=== PATIENT | female | born 1960 | race Caucasian/White ===

== ENCOUNTER 2024-03-13 02:52 | Emergency (ER) | payer MEDICARE, SELFPAY ==
--- OUTSIDE RECORDS SUMMARY | 2024-03-20 02:28 | XMS_ITS | Referral Summary ---
Author Organization [facility] [employer] Address [address] [place] [address] Care Team Providers Care Flask Pusher Name Role Phone Amor Contreras MD Primary Care Provider [phone] Source Comments [facility] [employer],non-owned Affiliates and Associated Physician Practices is amultiple site organization consisting of ambulatory clinics and hospital sitesin [place], [place], [place] and [place]. This disclosure is being madepursuant to the Care Everywhere program and may not contain all information available regarding this patient. Last updated 17.[facility] [employer] Allergies Active Allergy Reactions Criticality Noted Date Comments Chloraprep One Step Rash,Skin Reactions Medium 020 Rash with CHG @2% Jah wipes Penicillins Unknown Low 05/17/2015 Pt unable to recall Sulfa Drugs Unknown Low 06/29/2012 Pt unable to recalll Medications * Be aware that medications may not be up to date on this document. Alwaysverify current medications with the patient. Medication Sig Dispensed Refills Start Date End Date Status cetirizine (ZYRTEC ALLERGY) 10 MG tablet Take 10 mg by mouth as needed Active calcium citrate (CITRACAL 950) 950 MG tablet Take 950 mg by mouth once daily Active multivitamin daily tablet Take 1 tablet by mouth daily with food Active fluticasone propionate (FLONASE) 50 MCG/ACT nasal spray Graham 2 sprays into each nostril once daily 16 g 11 02/22/2020 Active Active Problems Problem Noted Date Diagnosed Date Deviated nasal septum 12/21/2019 Nasal polyps 12/21/2019 Nasal turbinate hypertrophy 12/21/2019 Chronic pansinusitis 12/21/2019 SVT (supraventricular tachycardia) 05/17/2015 Osteopenia 01/14/2015 Immunizations Name Administration Dates Next Due Eric Murry primary monoval ent 12+ yr 0.3mL Purple cap 04/11/2020,03/21/2020 INFLUENZA 01/05/2020 Social History Tobacco Use Types Packs/Day Years Used Date Smoking Tobacco: Never Smokeless Tobacco: Never Sex and Gender Information Value Date Recorded Sex Assigned at Female 05/21/2021 12:05 PM [employer] Gender Identity Female 05/21/2021 12:05 PM [employer] Sexual Orientation Straight 05/21/2021 12 :05 PM [employer] Last Filed Vital Signs Vital Sign Reading Time Taken Comments Blood Pressure 105/68 06/27/2020 8:18 AM CDT Pulse 65 06/27/2020 8:18 AM CDT Temperature 36.8 ??C (98.2 ??F) 06/27/2020 8:18 AM CD T Respiratory Rate 13 02/14/2020 2:18 PM [employer] Oxygen Saturation 97% 02/14/2020 2:18 PM [employer] Inhaled Oxygen Concentration - - Weight 61.2 kg (135 lb) 06/27/2020 8:18 AM CDT Height 160 cm (5' 3 ) 06/27/2020 8:18 AM CDT Body Mass Index 23.91 06/27/2020 8:18 AM CDT Plan of Treatment Not on file Procedures Procedure Name Priority Date/Time Associated Diagnosis Comments LIPID PROFILE Routine 05/18/2015 5:11 AM [employer] from Last 3 Months or Most Recently Relevant to Health Maintenance Results * (ABNORMAL) LIPID PROFILE (05/18/2015 5:11 AM [employer]) Cholesterol Total 165 <200 mg/dL [facility] HDL 38(L) >40 mg/dL [facility] Comment: ATP III Classification of HDL Cholesterol: ? <40 mg/dL: ??Considered a major risk factor. ? >60 mg/dL: ??Considered a negative risk factor. ? LDL Calculated 109(H) <100 mg/dL [facility] Comment: ATP III Classification of LDL Cholesterol: ?<100 mg/dL: ??Optimal ? 100 - 129 mg/dL: ??Near Optimal/Above Optimal ? 130 - 159 mg/dL: ??Borderline High ? 160 - 189 mg/dL: ??High ?>190 mg/dL: ??Very High ? Triglycerides 91 <150 mg/dL [facility] Comment: ATP III Classification of Triglycerides: ?<150 mg/dL: ??Normal ? 150 - 199 mg/dL: ??Borderline High ? 200 - 400 mg/dL: ??High ?>500 mg/dL: ??Very High Blood specimen (specimen) BLOOD SPECIMEN / Unknown 05/18/2015 5:11 AM [employer] 05/18/2015 5:20 AM [employer] Liang Lynch MD LAB - CHEMISTRY [facility] Performing Organization Address City/State/[facility] Co de Phone Number [address] [phone] from Last 3 Months or Most Recently Relevant to Health Maintenance Care Teams Flask Pusher Relationship Specialty Start Date End Date Amor Contreras MD PCP - General Internal Medicine 06/29/12
--- OUTSIDE RECORDS SUMMARY | 2024-03-20 02:28 | XMS_ITS | Patient Health Summary ---
Author Organization [facility] [employer] Address [address] [place] [address] Care Team Providers Care Azure Developer Name Role Phone Amor Contreras MD Primary Care Provider [phone] Note from [facility],non-owned Affiliates and Associated Physician Practices is amultiple site organization consisting of ambulatory clinics and hospital sitesin [place], [place], [place] and [place]. This disclosure is being madepursuant to the Care Everywhere program and may not contain all information available regarding this patient. Last updated 17.[facility] Allergies * Chloraprep One Step(Rash,Skin Reactions) -Medium Criticality * Penicillins(Unknown) -Low Criticality * Sulfa Drugs(Unknown) -Low Criticality Medications * Be aware that medications may not be up to date on this document. Alwaysverify current medications with the patient. * cetirizine (ZYRTEC ALLERGY) 10 MG tablet Take 10 mg by mouth as needed * calcium citrate (CITRACAL 950) 950 MG tablet Take 950 mg by mouth once daily * multivitamin daily tablet Take 1 tablet by mouth daily with food * fluticasone propionate (FLONASE) 50 MCG/ACT nasal spray(Started 02/22/2020) Diller 2 sprays into each nostril once daily 11 refills by 02/21/2021 Active Problems Problem Noted Date Diagnosed Date Deviated nasal septum 12/21/2019 Nasal polyps 12/21/2019 Nasal turbinate hypertrophy 12/21/2019 Chronic pansinusitis 12/21/2019 SVT (supraventricular tachycardia) 05/17/2015 Osteopenia 01/14/2015 Immunizations * Covid Pfizer primary monovalent 12+ yr 0.3mL Purple cap(Given 04/11/2020, 03/21/2020) * INFLUENZA(Given 01/05/2020) Social History Tobacco Use Types Packs/Day Years Used Date Smoking Tobacco: Never Smokeless Tobacco: Never Sex and Gender Information Value Date Recorded Sex Assigned at Female 05/21/2021 12:05 PM PRODUCTION CHECKER Gender Identity Female 05/21/2021 12:05 PM PRODUCTION CHECKER Sexual Orientation Straight 05/21/2021 12 :05 PM PRODUCTION CHECKER Last Filed Vital Signs Vital Sign Reading Time Taken Comments Blood Pressure 105/68 06/27/2020 8:18 AM CDT Pulse 65 06/27/2020 8:18 AM CDT Temperature 36.8 ??C (98.2 ??F) 06/27/2020 8:18 AM CD T Respiratory Rate 13 02/14/2020 2:18 PM PRODUCTION CHECKER Oxygen Saturation 97% 02/14/2020 2:18 PM PRODUCTION CHECKER Inhaled Oxygen Concentration - - Weight 61.2 kg (135 lb) 06/27/2020 8:18 AM CDT Height 160 cm (5' 3 ) 06/27/2020 8:18 AM CDT Body Mass Index 23.91 06/27/2020 8:18 AM CDT Procedures * MT NASAL ENDOSCOPY,DX(Performed 06/27/2020) Performed for Nasal polyps, Deviated nasal septum, Nasal turbinate hypertrophy, Chronic pansinusitis * MT NASAL ENDOSCOPY,DX(Performed 04/11/2020) Performed for Nasal polyps, Nasal turbinate hypertrophy, Chronic pansinusitis * MT ENDO NASAL SINUS BX POLYP DEBRID LT SIDE(Performed 03/08/2020) Performed for Chronic pansinusitis, Nasal crusting * CULTURE RESPIRATORY+GRAM STAIN (STL)(Performed 03/08/2020) Performed for Chronic pansinusitis, Nasal crusting * MT ENDO NASAL SINUS BX POLYP DEBRID VALERIA(Performed 02/22/2020) Performed for Chronic pansinusitis, Nasal polyps, Deviated nasal septum, Chronic left-sided headache * CARDIAC EKG ORDER(Performed 02/16/2020) * PATHOLOGY TISSUE(Performed 02/14/2020) Performed for Nasal polyps, Deviated nasal septum, Chronic pansinusitis, Nasal turbinate hypertrophy * ENDOTRACHEAL TUBE NOTE(Performed 02/14/2020) * MT NASAL SCOPE,BX/RMV POLYP/DEBRID(Performed 02/14/2020) Performed for Nasal polyps, Deviated nasal septum, Chronic pansinusitis, Nasal turbinate hypertrophy * SARS-COV-2 (COVID-19) IN HOUSE(Performed 02/12/2020) Performed for Pre-op testing * TYPE + SCREEN PANEL(Performed 02/03/2020) Performed for Preop examination * BASIC METABOLIC PANEL (CALCIUM TOTAL)(Performed 02/03/2020) Performed for Preop examination * CBC W/O DIFFERENTIAL(Performed 02/03/2020) Performed for Preop examination * EKG 12-LEAD(Performed 02/03/2020) Performed for Preop examination * CT SINUS WO CONTRAST(Performed 01/12/2020) Performed for Deviated nasal septum, Mucous retention cyst of maxillary sinus, Nasal polyps * MT NASAL ENDOSCOPY,DX(Performed 12/21/2019) Performed for Chronic left-sided headache, Deviated nasal septum, Mucous retention cyst of maxillary sinus, Nasal polyps * MRI BRAIN WWO CONTRAST(Performed 09/23/2019) Performed for Nonintractable headache, unspecified chronicity pattern, unspecified headache type * CREATININE - POCT INTERFACED(Performed 09/23/2019) * PATHOLOGY/GENETICS HISTORICAL-ONBASE(Performed 01/26/2016) * PATHOLOGY/GENETICS HISTORICAL-ONBASE(Performed 01/26/2016) * PATHOLOGY/GENETICS HISTORICAL-ONBASE(Performed 01/26/2016) * EVENT MONITOR(Performed 11/23/2015) * NM MYOCARD PERF REST STRESS(Performed 05/18/2015) * HEMOGLOBIN A1C(Performed 05/18/2015) * LIPID PROFILE(Performed 05/18/2015) * BASIC METABOLIC PANEL (CALCIUM TOTAL)(Performed 05/18/2015) * PT-INR [facility](Performed 05/18/2015) * XR CHEST 2VW(Performed 05/17/2015) * TROPONIN I(Performed 05/17/2015) * CK + CKMB PANEL(Performed 05/17/2015) * COMPREHENSIVE METABOLIC PANEL(Performed 05/17/2015) * CBC W AUTO DIFFERENTIAL(Performed 05/17/2015) * CBC W AUTO DIFFERENTIAL(Performed 05/17/2015) * ECHO COMPLETE(Performed 05/17/2015) * EKG 12-LEAD(Performed 05/17/2015) * XR KNEE LEFT 4VW OR MORE(Performed 08/05/2012) * XR KNEE LEFT 4VW OR MORE(Performed 07/15/2012) * XR KNEE LEFT 4VW OR MORE(Performed 06/29/2012) Performed for Knee pain Results * MT NASAL ENDOSCOPY,DX (06/27/2020 9:59 AM CDT) Narrative Ernesto Conley MD - 06/27/2020 9:59 AM CDT Ernesto Conley MD ? 06/27/2020 10:00 AM Procedure: Nasal Endoscopy Anesthesia: none Detail: Rigid nasal endoscopy was performed in bilateral nasal cavity. ??Septum is healed appropriately with only some very mild right septal deviation. ??Bilateral middle meatus is open with good healing and excellent appearance of mucosa. ?? Open ethmoid. ?? Maxillary and sphenoid sinuses are widely patent. ??Excellent mucosal appearance. ??Reviewed with patient. Ernesto Conley MD PROCEDURE/MINOR DEEPALI GICAL ORDERABLES * MT NASAL ENDOSCOPY,DX (04/11/2020 8:49 AM PRODUCTION CHECKER) Narrative Ernesto Conley MD - 04/11/2020 8:49 AM PRODUCTION CHECKER Ernesto Conley MD ? 04/11/2020 ??1:12 PM Procedure: Nasal Endoscopy Anesthesia: none Detail: Rigid nasal endoscopy was performed in bilateral nasal cavity. ??Septum is healed appropriately with only some mild right septal deviation. ??Right middle meatus is open with good healing and excellent appearance of mucosa. ??On the left she has had interval healing of the crust and exposed bone. Open ethmoid. ?? Maxillary and sphenoid sinuses are widely patent. ??Excellent mucosal appearance. Ernesto Conley MD PROCEDURE/MINOR DEEPALI GICAL ORDERABLES * MT ENDO NASAL SINUS BX POLYP DEBRID LT SIDE (03/08/2020 2:37 PM PRODUCTION CHECKER) Narrative Ernesto Conley MD - 03/08/2020 2:37 PM PRODUCTION CHECKER Ernesto Conley MD ? 03/08/2020 ??2:38 PM Procedure: Nasal Endoscopy With Debridement on the left Anesthesia: Bilateral Nasal Cavity sprayed with Lidocaine and Phenylephrine Detail: Rigid nasal endoscopy was performed in bilateral nasal cavity. ??Septum is healing appropriately with only some mild right septal deviation. ??Right middle meatus is open with good healing over the exposed Of the lamina papyracea. ??Excellent appearance of mucosa. ??On the left she has a large crust that is on the left lamina propria should. ??We debrided this and noted some exposed bone in the posterior lamina. ??Unable to visualize within the left frontal. ??Maxillary and sphenoid sinuses are widely patent. ??Culture taken. Ernesto Conley MD PROCEDURE/MINOR DEEPALI GICAL ORDERABLES * (ABNORMAL) CULTURE RESPIRATORY+GRAM STAIN (03/08/2020 2:15 PM PRODUCTION CHECKER) Culture Heavy Staphylococcus aureus(A) LUISA 03/12/2020 1:31 PM PRODUCTION CHECKER [facility]CRO[facility] Comment:Staphylococcus aureu s methicillin-susceptible (MSSA) detected by penicillin binding protein immunoassay. Culture Rare Stenotrophomonas maltophilia(A) LUISA 03/12/2020 1:31 PM PRODUCTION CHECKER [facility] MICROBIOLOG[facility] Gram Stain Light Polymorphonuclear cells 03/12/2020 1:31 PM PRODUCTION CHECKER [facility]CRO[facility] Gram Stain Rare Gram-positive cocci 03/12/2020 1:31 PM PRODUCTION CHECKER [facility] MICROBIOLOGY Microbiology SINUS / Unknown Collection / Unknown 03/08/2020 2:15 PM PRODUCTION CHECKER 03/08/2020 6:16 PM PRODUCTION CHECKER Narrative Organism Antibiotic Method Susceptibility Staphylococcus aureus Clindamycin LUISA 0.25 ug/mL: Susceptible Staphylococcus aureus Doxycycline LUISA <=0.5 ug/mL: Susceptible Staphylococcus aureus Erythromycin LUISA <=0.25 ug/mL: Susceptible Staphylococcus aureus Gentamicin LUISA <=0.5 ug/mL: Susceptible Staphylococcus aureus Inducible Clindamy teresa Resistance LUISA NEG ug/mL: Neg Staphylococcus aureus Linezolid LUISA 2 ug/mL: Susceptible Staphylococcus aureus Oxacillin LUISA 0.5 ug/mL: Susceptible Staphylococcus aureus Tetracycline LUISA <=1 ug/mL: Susceptible Staphylococcus aureus Trimethoprim-sulfa methox azole LUISA <=10 ug/mL: Susceptible Staphylococcus aureus Vancomycin LUISA 1 ug/mL: Susceptible Comment:Methicillin-suscepti ble Staphylococci are susceptible to oxacillin, nafcillin, cloxacillin,dicloxacillin, beta lactam/betalactamase inhibitor combinations, cephalosporins including cefazolin and carbapenems. Stenotrophomonas maltophilia Ceftazidime LUISA 64 ug/mL: Resistant Stenotrophomonas maltophilia Levofloxacin LUISA 2 ug/mL: Susceptible Stenotrophomonas maltophilia Minocycline KB Susceptible Stenotrophomonas maltophilia Trimethopri m-sulfamethox azole LUISA 1 ug/mL: Susceptible Ernesto Conley MD LAB - MICROBIOLOGY ORDERABLES [facility]CRO[facility] [address] [place] [address], [facility] [phone] * MT ENDO NASAL SINUS BX POLYP DEBRID VALERIA (02/22/2020 1:17 PM PRODUCTION CHECKER) Narrative Ernesto Conley MD - 02/22/2020 1:17 PM PRODUCTION CHECKER Ernesto Conley MD ? 02/22/2020 ??1:31 PM Procedure: Nasal Endoscopy With Debridement Anesthesia: Bilateral Nasal Cavity sprayed with Lidocaine and Phenylephrine Detail: Rigid nasal endoscopy was performed in bilateral nasal cavity. ??Removed crusting and thick secretions with suctions. ?? Septum is mildly deviated to the right. ??Bilaterally I'm able to suction out the middle meatus using curved and straight suctions. I passed the curved suction into the maxillary sinuses on both sides. ??Good early postoperative appearance. ??Patient reported significant improvement in airway and facial pressure after debridement. Ernesto Conley MD PROCEDURE/MINOR DEEPALI GICAL ORDERABLES * CARDIAC EKG ORDER (02/16/2020 1:02 AM PRODUCTION CHECKER) Narrative 02/16/2020 1:02 AM PRODUCTION CHECKER Ordered by an unspecified provider. Scanned Document CARDIAC SERVICES ORD ERABLES * PATHOLOGY TISSUE (02/14/2020 11:54 AM PRODUCTION CHECKER) Case Report Surgical Pathology Report ? Case: [id number] ? Authorizing Provider: ??Ernesto Conley MD ? Collected: ? 02/14/2020 11:54 AM ? Ordering Location: ? [facility] ?Received: ?02/14/2020 03:02 PM ? Pathologist: ? Triston Adam MD ? Specimen: ?Sinus, Bilateral sinus contents - PERM ? 02/15/2020 4:[address] [facility] Final Diagnosis Bilateral sinus contents, evacuation (A): - Respiratory mucosa with chronic inflammation - 50 eosinophils per high power field 02/15/2020 4:[address] [facility] Microscopic Description and Comment Performed. 02/15/2020 4:[address] [facility] Clinical History The patient is 59 year old female with nasal polyps and nasal turbinate hypertrophy who underwent total ethmoidectomy, maxillary antrostomy, sphenoidectomy and septoplasty. 02/15/2020 4:[address] [facility] Gross Description The requisition and specimen is identified with the patient's name, Colette Lopez. Received in formalin in, specimen A are [id number] cartilage and soft tissue fragments measuring 2.8 x 2.5 x 1.0 cm in aggregate. The specimen is entirely submitted in cassette [id number]. IY 02/15/2020 4:[address] [facility] Disclaimer The performance characteristics of all immunohistochemical and indirect immunofluorescence stains (if any) cited in this report were determined by the Histopathology Laboratory of [facility]. Some of these tests were developed by our own laboratory and have not been cleared or approved by the US Food and Drug Administration. The FDA does not require this test to go through premarket FDA review. These tests are used for clinical purposes. They should not be regarded as investigational or for research. This laboratory is certified under the Clinical Laboratory Improvement Amendments (CLIA) as qualified to perform high complexity clinical laboratory testing. This case has been personally reviewed and interpreted by the attending (teaching) pathologist. 02/15/2020 4:21 PM PRODUCTION CHECKER [facility] Embedded Images 02/15/2020 4:[address] [facility] Biopsy, Excision SINUS / Unknown 02/14/20 20 11:54 AM PRODUCTION CHECKER 02/14/2020 3:02 PM PRODUCTION CHECKER Comment:Pre-op diagnosis: NASAL POLYPS; DEVIATED NASAL SEPTUM; CHRONIC PANSINUSITIS; TURBINATE HYPERTROPHY Ernesto Conley MD LAB - PATHOLOGY/CYT OLOGY ORDERABLES Performing Organization Address City/State/[facility] de Phone Number [facility] [address] [phone] * ETT LINE PERFORMABLE (02/14/2020 11:42 AM PRODUCTION CHECKER) Narrative Tia Dela Cruz APRN-CRNA - 02/14/2020 11:42 AM PRODUCTION CHECKER Tia Dela Cruz APRN-CRNA ? 02/14/2020 11:43 AM Endotracheal Tube Placement: ? Patient Location: OR. Intubation Event Date/Time: ??02/14/2020 11:26 AM Procedure: intubation ([id number]). Procedure Section: ?? Sedation: under general anesthesia. Indications for Airway Management: ??anesthesia Procedure pretreatments used? ??No Induction: standard IV Patient Position: ??sniffing Mask Ventilation: easy. Blade Type: Nieves Blade Size: 2 Laryngoscopy View: grade 1 (full cords) Tube: endotracheal tube Placement: oral Tube type: cuff - inflated Tube Size (MM): 7 Depth of Insertion (CM): 20 Measured From: teeth Cuff Inflated With: air Number of Attempts: 1. Placement Verified By: direct visualization and CO2 monitor CXR Findings: ETT in proper place. Tube secured with: ??adhesive tape. Dentition unchanged? ??Yes Difficult Airway? ??No. Procedure Start Time: 02/14/2020 11:26 AM. Staff Section ?? Anesthesia Provider: Tia Dela Cruz, BUTTONHOLE MAKER HAND-SURGICAL PHYSICIAN ASSISTANT, Performed the procedure Tristin Grijalva DO GENERAL ANESTHESIA ORDERABLES * SARS-COV-2 (COVID-19) PRE-SURGICAL/PROCEDURE (02/12/2020 9:49 AM PRODUCTION CHECKER) COVID-19 PCR Not detected Not detected 02/12/2020 7:[address] [facility] Microbiology SPECIMEN FROM NASOPHARYNGEAL STRUCTURE / Unknown Collection / Unknown 02/12/2020 9:49 AM PRODUCTION CHECKER 02/12/2020 9:49 [address] [facility] - 02/12/2020 7:42 PM PRODUCTION CHECKER This nucleic acid amplification assay performance was validated by [facility]. This test has been authorized by the Food and Drug administration (FDA)under an Emergency??Use Authorization (EUA). This test has been validated in accordance with the FDA's guidance document Policy for Diagnostic Testing in Laboratories Certified to perform High Complexity Testing under CLIA prior to Emergency Use Authorization for Coronavirus Disease-2019 during the Public Health Emergency issued on May 15, 2019. FDA independent review of this validation is pending. This test is only authorized for the duration of time the declaration that circumstances exist justifying the authorization of emergency use of in vitro diagnostic tests for detection of SARS-CoV-2 virus and/or diagnosis of COVID-19 infection under section 564(b)(1) of the Act, 21 U.S.C 360bbb-3 (b)(1), unless the authorization is terminated or revoked sooner. Fact Sheets for this EUA assay are available upon request. Ernesto Conley MD LAB - MICROBIOLOGY ORDERABLES [facility] [address] [place] [address], [facility] [phone] * TYPE + SCREEN PANEL (02/03/2020 9:20 AM PRODUCTION CHECKER) Antibody Screen NEG 0 10:48 AM PRODUCTION CHECKER [facility] ABO Rh A POS 02/03/2020 10:48 AM PRODUCTION CHECKER [facility] Blood Bank BLOOD SPECIMEN / Unknown Lab Venipuncture / Unknown 02/03/2020 9:20 AM PRODUCTION CHECKER 02/03/2020 9:38 AM PRODUCTION CHECKER Magdaleno Martinez DO LAB - BLOOD BANK ORDERABLES [facility] [address] [place] [address], [facility] [phone] * (ABNORMAL) CBC W/O DIFFERENTIAL (02/03/2020 9:20 AM PRODUCTION CHECKER) WBC 6.1 3.5 - 10.5 10? 3 /uL 02/03/2020 9:48 AM [facility] RBC 5.13(H) 3.90 - 5.00 10? 6 /uL 02/03/2020 9:48 AM [facility] Hemoglobin 13.8 12.0 - 15.5 g/dL 02/03/2020 9:48 AM [facility] Hematocrit 44.8 35.0 - 45.0 % 02/03/2020 9:48 AM [facility] MCV 87.3 81.0 - 97.0 fL 02/03/2020 9:48 AM [facility] MCH 26.9(L) 28.0 - 34.0 pg 02/03/2020 9:48 AM [facility] MCHC 30.8(L) 32.0 - 36.0 g/dL 02/03/2020 9:48 AM [facility] Platelet Count 277 150 - 400 10? 3 /uL 02/03/2020 9:48 AM [facility] RDW-SD 41.1 36.0 - 50.0 fL 02/03/2020 9:48 AM [facility] RDW-CV 12.8 11.2 - 14.8 % 02/03/2020 9:48 AM [facility] MPV 10.2 9.3 - 12.8 fL 02/03/2020 9:48 AM [facility] nRBC Absolute 0.00 0 10? 3 /uL 02/03/2020 9:48 AM [facility] nRBC Auto 0.0 0 /100 WBC 02/03/2020 9:48 AM [facility] Blood BLOOD SPECIMEN / Unknown Lab Venipuncture / Unknown 02/03/2020 9:20 AM PRODUCTION CHECKER 02/03/2020 9:38 AM PRODUCTION CHECKER Magdaleno Martinez DO LAB - HEMATOLOGY ORDERABLES [facility] [address] [place] [address], [facility] [phone] * BASIC METABOLIC PANEL (CALCIUM TOTAL) (02/03/2020 9:20 AM PRODUCTION CHECKER) Only the most recent of2 resultswithin the time period is included. BUN 11 7 - 26 mg/dL 02/03/2020 10:02 AM [facility] Creatinine 0.7 0.6 - 1.2 mg/dL 02/03/2020 10:02 AM [facility] Sodium 140 136 - 145 mmol/L 02/03/2020 10:02 AM [facility] Potassium 4.4 3.5 - 4.5 mmol/L 02/03/2020 10:02 AM [facility] Chloride 104 98 - 107 mmol/L 02/03/2020 10:02 AM [facility] CO2 26 22 - 29 mmol/L 02/03/2020 10:02 AM [facility] Glucose 87 70 - 115 mg/dL 02/03/2020 10:02 AM [facility] Calcium 9.0 8.4 - 10.2 mg/dL 02/03/2020 10:02 AM [facility] Anion Gap 14 8 - 18 02/03/2020 10:02 AM [facility] BUN/Creatinine Ratio 16 7 - 23 02/03/2020 10:02 AM [facility] Osmolality Calculated 289 270 - 300 mOsm/kg 02/03/2020 10:02 AM [facility] eGFR >60 >60 mL/min/1.7 3 m2 02/03/2020 10:02 AM [facility] Blood BLOOD SPECIMEN / Unknown Lab Venipuncture / Unknown 02/03/2020 9:20 AM PRODUCTION CHECKER 02/03/2020 9:38 AM PRODUCTION CHECKER Magdaleno Martinez DO LAB - CHEMISTRY O RDERABLES Performing Organization Address [facility] Co de Phone Number [facility] [address] [place] [address], [facility] [phone] * EKG 12-LEAD (02/03/2020 8:51 AM PRODUCTION CHECKER) Only the most recent of2 resultswithin the time period is included. Ventricular Rate 64 BPM [facility] MUSE Atrial Rate 64 BPM [facility] MUSE P-R Interval 130 ms [facility] MUSE QRS Duration ms 82 ms H MUSE Q-T Interval ms 404 ms [facility] MUSE QTC Calculation (Bezet) 416 ms [facility] MUSE Calculated P [place] 64 degrees [facility] MUSE Calculated R [place] 64 degrees [facility] MUSE Calculated T [place] 50 degrees SL MUSE Interpretation EKG NORMAL SINUS RHYTHM NORMAL ECG WHEN COMPARED WITH ECG OF 17-MAY-2015 07:42, PREMATURE ATRIAL COMPLEXES ARE NO LONGER PRESENT Confirmed by fellow Umang Cordoba ([id number]) on 02/14/2020 12:56:57 PM Confirmed by Kvng Ayon ([id number]) on 02/14/2020 11:16:07 PM [facility] MUSE 02/03/2020 8:51 AM PRODUCTION CHECKER 02/14/2020 11:16 PM PRODUCTION CHECKER Magdaleno Martinez DO ECG ORDERABLES Performing Organization Address [facility] Co de Phone Number [facility] * CT SINUS WO CONTRAST (01/12/2020 1:16 PM CDT) Anatomical Region Laterality Modality Head Computed Tomogra phy 01/12/2020 2:31 PM CDT Impressions 01/12/2020 2:42 PM CDT IMPRESSION: 1. Paranasal sinus disease as outlined. This report was electronically signed by THERESA FUNES ??on 01/12/2020 2:42 PM . Narrative 01/12/2020 2:[address] SINUS WO CONTRAST DATE: 01/12/2020 1:17 PM EXAMINATION: Computed tomography (CT) of the maxillofacial bones, orbits, and paranasal sinuses without contrast HISTORY: J34.2: Deviated nasal septum. J34.1: Mucous retention cyst of maxillary sinus. J33.9: Nasal polyps TECHNIQUE: CT of the maxillofacial bones, orbits, and paranasal sinuses was performed without contrast according to standard protocol. COMPARISON: No prior study is available for comparison at the time of this dictation. Correlation with the MRI of the brain from 09/23/2019. FINDINGS: Post-Surgical Findings: ?? None Sinus Chambers: ?? There is moderate polypoid mucosal thickening in the maxillary and sphenoid sinuses with retained secretions. Are scattered opacification in the ethmoid air cells. There is mild mucosal thickening in the frontal sinuses, likely with a small mucus retention cyst along the superior aspect of the left frontal sinus. Nasal Cavities: ?? Mild mucosal thickening around the nasal turbinates. The visualized nasal cavities are otherwise patent. Developmental Anomalies: ??The nasal septum is slightly deviated to the right. Ostiomeatal Complex: ?? Its are obscured bilaterally due to mucosal thickening. Other: ??The orbits appear normal. There are degenerative changes of the temporomandibular joints. The hard palate, mandible, and temporomandibular joints appear otherwise grossly unremarkable. Artifacts from the dental amalgam limits evaluation of the oral cavity. No acute facial bone fractures are identified. The mastoid air cells are grossly clear. No soft tissue abnormality is identified. Procedure Note Theresa Funes MD - 01/12/2020 CT SINUS WO CONTRAST DATE: 01/12/2020 1:17 PM EXAMINATION: Computed tomography (CT) of the maxillofacial bones,orbits, and paranasal sinuses without contrast HISTORY: J34.2: Deviated nasal septum. J34.1: Mucous retention cyst of maxillary sinus. J33.9: Nasal polyps TECHNIQUE: CT of the maxillofacial bones, orbits, and paranasal sinuses was performed without contrast according to standard protocol. COMPARISON: No prior study is available for comparison at the time ofthis dictation. Correlation with the MRI of the brain from 09/23/2019. FINDINGS: Post-Surgical Findings: None Sinus Chambers: There is moderate polypoid mucosal thickening in the maxillary and sphenoid sinuses with retained secretions. Are scattered opacification in the ethmoid air cells. There is mild mucosal thickening in the frontal sinuses, likely with a small mucus retention cyst alongthe superior aspect of the left frontal sinus. Nasal Cavities: Mild mucosal thickening around the nasal turbinates.The visualized nasal cavities are otherwise patent. Developmental Anomalies: The nasal septum is slightly deviated to the right. Ostiomeatal Complex: Its are obscured bilaterally due to mucosal thickening. Other: The orbits appear normal. There are degenerative changes of the temporomandibular joints. The hard palate, mandible, andtemporomandibular joints appear otherwise grossly unremarkable. Artifacts from the dental amalgam limits evaluation of the oral cavity. No acute facial bone fractures are identified. The mastoid air cells are grossly clear. Nosoft tissue abnormality is identified. IMPRESSION: 1. Paranasal sinus disease as outlined. This report was electronically signed by THERESA FUNES on 01/12/2020 2:42 PM . Ernesto Conley MD CT ORDERABLES * MT NASAL ENDOSCOPY,DX (12/21/2019 9:50 AM CDT) Narrative Ernesto Conley MD - 12/21/2019 9:50 AM CDT Ernesto Conley MD ? 12/21/2019 ??9:51 AM Procedure: Rigid Nasal Endoscopy Anesthesia: Bilateral Nasal Cavities sprayed with lidocaine and Neosynephrine Detail: ??Rigid nasal endoscopy performed bilaterally. ??Septum Is severely deviated to the right with greater than 95% obstruction. It is primarily anteriorly and cartilaginous. ??There is contact onto the right inferior turbinate and possibly a scar band. ?? Unable to adequately visualize the right middle turbinate due to the septal deviation. ??On the left nasal cavity is more open but she does have significant inferior turbinate hypertrophy. ??The middle turbinate on the left has polypoid changes with what appears to be polyps coming from the uncinate. ??There is significant edema. ??No chiara purulence. ??Reviewed extensively with patient. Ernesto Conley MD PROCEDURE/MINOR DEEPALI GICAL ORDERABLES * MRI BRAIN WWO CONTRAST (09/23/2019 4:34 PM CDT) Anatomical Region Laterality Modality Head Magnetic Resonan ce 09/24/2019 10:5 3 AM CDT Impressions 09/24/2019 6:37 PM CDT IMPRESSION: 1. No evidence of acute intracranial findings. 2. Significant paranasal sinus disease as outlined. Dictated by Geno Gamble M.D. (president erg[employer]). This report was approved ??by Geno Gamble ?? on 09/24/2019 6:37 PM . I, Dr. THERESA FUNES have personally reviewed and interpreted this examination/study. This report was electronically signed by THERESA FUNES ??on 09/24/2019 6:37 PM . Narrative 09/24/2019 6:37 PM CDT MRI BRAIN WWO CONTRAST DATE: 09/23/2019 5:08 PM EXAMINATION: Magnetic resonance imaging (MRI) of the brain without and with contrast HISTORY: R51: Nonintractable headache, unspecified chronicity pattern, unspecified headache type COMPARISON: No prior study is available for comparison at the time of this dictation. TECHNIQUE: MRI of the brain was performed prior to and following the uneventful administration of 6 mL intravenous gadolinium contrast according to a tumor protocol. FINDINGS: No evidence of acute or chronic hemorrhage is identified. No evidence of acute cerebral infarction is seen. The ventricles are of normal size, shape, and morphology. No masses, mass effect, or midline shift is seen. No enhancing lesions are identified. The corpus callosum and sella appear normal. The posterior fossa, brainstem, and craniocervical junction appear normal. There is significant paranasal sinus disease in the ethmoid sinuses. Moderate mucosal thickening is seen in the left maxillary and the right side of the sphenoid sinus. Mild mucosal thickening in the remaining paranasal sinuses. The mastoid air cells are grossly clear. Mild tortuosity of the optic nerve sheath complexes. The orbits appear otherwise grossly unremarkable. Normal flow voids are demonstrated in the carotid arteries and basilar artery. The calvarium and visualized cervical spine appear normal. Procedure Note Theresa Funes MD - 09/24/2019 MRI BRAIN WWO CONTRAST DATE: 09/23/2019 5:08 PM EXAMINATION: Magnetic resonance imaging (MRI) of the brain without and with contrast HISTORY: R51: Nonintractable headache, unspecified chronicity pattern, unspecified headache type COMPARISON: No prior study is available for comparison at the time ofthis dictation. TECHNIQUE: MRI of the brain was performed prior to and following the uneventful administration of 6 mL intravenous gadolinium contrast according to a tumor protocol. FINDINGS: No evidence of acute or chronic hemorrhage is identified. No evidence of acute cerebral infarction is seen. The ventricles are of normal size, shape, and morphology. No masses, mass effect, or midline shift is seen. No enhancing lesions are identified. The corpus callosum and sellaappear normal. The posterior fossa, brainstem, and craniocervical junctionappear normal. There is significant paranasal sinus disease in the ethmoid sinuses. Moderate mucosal thickening is seen in the left maxillary and the right side of the sphenoid sinus. Mild mucosal thickening in the remaining paranasal sinuses. The mastoid air cells are grossly clear. Mild tortuosity of the optic nerve sheath complexes. The orbits appear otherwise grossly unremarkable. Normal flow voids are demonstrated inthe carotid arteries and basilar artery. The calvarium and visualizedcervical spine appear normal. IMPRESSION: 1. No evidence of acute intracranial findings. 2. Significant paranasal sinus disease as outlined. Dictated by Geno Gamble M.D. (president [employer]). This report was approved by Geno Gamble on 09/24/2019 6:37 PM . I, Dr. THERESA FUNES have personally reviewed and interpreted this examination/study. This report was electronically signed by THERESA FUNES on09/24/2019 6:37 PM . Amor Contreras MD MR ORDERABLES * CREATININE - POCT INTERFACED (09/23/2019 4:04 PM CDT) Creatinine POCT 0.54 0.30 - 1.30 mg/dL 09/23/2019 4:04 PM CDT [facility] Comment:Range ok for MRI eGFR >60 >60 mL/min/1.7 3 m2 09/23/2019 4:04 PM CDT [facility] Blood BLOOD SPECIMEN / Unknown 09/23/2019 4:04 PM CDT 09/23/2019 4:04 PM CDT Provider Unknown LAB - POINT OF CARE ORDERABLES [address] [id number], [facility] [phone] * PATHOLOGY/GENETICS HISTORICAL-ONBASE (01/26/2016) Only the most recent of3 resultswithin the time period is included. 01/26/2016 Historical Provider LAB - CHEMISTRY O RDERABLES Performing Organization Address [facility] Co de Phone Number [place] [phone] [address] * EVENT MONITOR (11/23/2015 8:34 AM CDT) Narrative [facility] - 11/23/2015 8:34 AM CDT Colette Lopez underwent cardiac monitoring with a 30-day event monitor. ??Results are as follows: Quality of Tracings: ??Fair, with some baseline artifact. Rhythm: ??Sinus rhythm, sinus arrhythmia, occasional PACs Rates: ??60-94 bpm on transmitted portions. Ectopy: ??Occasional PACs Symptoms: ??Symptoms of shortness of breath and other correlated with sinus rhythm, sinus arrhythmia and PACs. ??One episode shows an atrial run of 4 beats. ?? Please feel free to contact me with any questions, thank you. Kadie Brown MD 11/23/2015 8:31 AM Procedure Note Provider, MD Katie - 08/22/2017 Colette Lopez underwent cardiac monitoring with a 30-day event monitor.Results are as follows: Quality of Tracings: Fair, with some baseline artifact. Rhythm: Sinus rhythm, sinus arrhythmia, occasional PACs Rates: 60-94 bpm on transmitted portions. Ectopy: Occasional PACs Symptoms: Symptoms of shortness of breath and other correlated withsinus rhythm, sinus arrhythmia and PACs. One episode shows an atrial runof 4 beats. Please feel free to contact me with any questions, thank you. Kadie Brown MD 11/23/2015 8:31 AM Kadie Brown MD CARDIAC SERVICES ORDERABLES Performing Organization Address [facility] Co de Phone Number [facility] * NM MYOCARD PERF REST STRESS (05/18/2015 3:11 PM PRODUCTION CHECKER) Anatomical Region Laterality Modality Chest Other Impressions 05/18/2015 4:49 PM PRODUCTION CHECKER Impression: 1. No evidence of myocardial infarction or stress-induced ischemia. 2. Normal left ventricular function with ejection fraction of 67 %. This report was approved ??by Goldy Ramos M.D. ?? on 05/18/2015 3:54 PM . I, Dr. SARAH LIEBERMAN M.D. have personally reviewed and interpreted this examination/study. This report was electronically signed by SARAH LIEBERMAN M.D. ??on 05/18/2015 4:49 PM . Narrative 05/18/2015 4:49 PM PRODUCTION CHECKER Procedure: Rest and stress SPECT myocardial imaging with gating - one day protocol History: 54-year-old female with history of SVT diagnosed 15 years ago. Presented with shortness of breath. Technique: 10.5 mCi of Myoview was administered at rest. Myocardial perfusion imaging was performed 30 minutes post- injection. At the conclusion of the rest imaging, the patient exercised on the treadmill for 11:02 minutes following a Landen protocol. The heart rate at rest was 72 at baseline and 150 beats per minute at peak exercise, achieving 90% of age-predicted maximum. The BP was 115/75 at rest and 120/80 after the stress procedure. The patient experienced no chest pain and there were no ST segment changes during the exercise. At peak exercise, the patient was injected with 32.3 mCi of Myoview and post-stress gated SPECT was performed after 30 minutes. Findings: ??No prior study is available for comparison. In the stress and rest SPECT images, the left ventricle is normal in size. The stress SPECT images show a a normal pattern of myocardial perfusion. There is no significant change in the perfusion pattern at rest. Gated SPECT images show normal wall motion. Left ventricular function is normal, with an ejection fraction of 67 %. Procedure Note Sarah Lieberman MD - 06/14/2017 Procedure: Rest and stress SPECT myocardial imaging with gating - one dayprotocol History: 54-year-old female with history of SVT diagnosed 15 years ago.Presented with shortness of breath. Technique: 10.5 mCi of Myoview was administered at rest. Myocardialperfusion imaging was performed 30 minutes post- injection. At theconclusion of the rest imaging, the patient exercised on the treadmill for11:02 minutes following a Landen protocol. The heart rate at rest was 72 at baseline and 150 beats per minute at peakexercise, achieving 90% of age-predicted maximum. The BP was 115/75 atrest and 120/80 after the stress procedure. The patient experienced nochest pain and there were no ST segment changes during the exercise. At peak exercise, the patient wasinjected with 32.3 mCi of Myoview and post-stress gated SPECT wasperformed after 30 minutes. Findings: No prior study is available for comparison. In the stress and rest SPECT images, the left ventricle is normal in size.The stress SPECT images show a a normal pattern of myocardial perfusion.There is no significant change in the perfusion pattern at rest. GatedSPECT images show normal wall motion. Left ventricular function is normal, with an ejection fraction of67 %. IMPRESSION Impression: 1. No evidence of myocardial infarction or stress-induced ischemia. 2. Normal left ventricular function with ejection fraction of 67 %. This report was approved by Goldy Ramos M.D. on 05/18/2015 3:54 PM. I, Dr. SARAH LIEBERMAN M.D. have personally reviewed and interpreted thisexamination/study. This report was electronically signed by SARAH LIEBERMAN M.D. on 05/18/20154:49 PM . Liang Lynch MD NM ORDERABLES * PT-INR [facility] (05/18/2015 5:11 AM PRODUCTION CHECKER) PT 12.7 12.1 - 14.8 Seconds [facility] INR 1.0 See Comment [facility] Comment: Suggested therapeutic range for low-intensity coumadin therapy for venous thromboembolism prophylaxis is an INR of 2.0-3.0. ??For high risk patients (Mitral Valve Prosthesis, Atrial Fibrillation, history of TIA/stroke), suggested prophylactic therapeutic range is an INR of 2.5-3.5. Blood specimen (specimen) BLOOD SPECIMEN / Unknown 05/18/2015 5:11 AM PRODUCTION CHECKER 05/18/2015 5:20 AM PRODUCTION CHECKER Narrative [facility] - 05/18/2015 5:42 AM PRODUCTION CHECKER Is patient on Heparin, Argatroban or Dabigatran?->N Liang Lynch MD LAB - COAGULATION OR DERABLES [facility] [address] [phone] * HEMOGLOBIN A1C (05/18/2015 5:11 AM PRODUCTION CHECKER) Hemoglobin A1c 5.8 4.4 - 6.3 % [facility] Estimated Average Glucose 120 mg/dL [facility] Comment: HbA1c Interpretation: Treatment target values recommended by ADA and other clinical organizations should be used to evaluate metabolic control in patients. Treatment Target Values: Normal : < 5.7% Pre-diabetes: 5.7-6.4% Diabetes: Equal to or greater than 6.5% Reference: [place] [employer] Standards of Care in Diabetes -2014 In patients 70 years and older consider HbA1c target range of 7.0-7.5% Reference: ??Diabetes Mellitus in Older People: Position Statement on behalf of the International Association of Gerontology and Geriatrics (IAGG), the Diabetes Working Constitution Party for Older People (EDWPOP), and the International Task Force of Experts in Diabetes. ??Sagar Cristina, et al. J [place] [employer]. 2012 Test results diagnostic of diabetes should be repeated for confirmation. The Tosoh G8 assay for the measurement of HbA1c is a National Glycohemoglobin Standardization Program (NGSP)certified method. Results for patients with HbE disease should be interpreted with caution as this hemoglobinopathy has been shown to interfere with the Tosoh G8 assay. Blood specimen (specimen) BLOOD SPECIMEN / Unknown 05/18/2015 5:11 AM PRODUCTION CHECKER 05/18/2015 5:20 AM PRODUCTION CHECKER Liang Lynch MD LAB - CHEMISTRY [facility] [address] [phone] * (ABNORMAL) LIPID PROFILE (05/18/2015 5:11 AM PRODUCTION CHECKER) Cholesterol Total 165 <200 mg/dL [facility] HDL 38(L) >40 mg/dL [facility] Comment: ATP III Classification of HDL Cholesterol: ? <40 mg/dL: ??Considered a major risk factor. ? >60 mg/dL: ??Considered a negative risk factor. ? LDL Calculated 109(H) <100 mg/dL [facility] Comment: ATP III Classification of LDL Cholesterol: ?<100 mg/dL: ??Optimal ? 100 - 129 mg/dL: ??Near Optimal/Above Optimal ? 130 - 159 mg/dL: ??Borderline High ? 160 - 189 mg/dL: ??High ?>190 mg/dL: ??Very High ? Triglycerides 91 <150 mg/dL [facility] Comment: ATP III Classification of Triglycerides: ?<150 mg/dL: ??Normal ? 150 - 199 mg/dL: ??Borderline High ? 200 - 400 mg/dL: ??High ?>500 mg/dL: ??Very High Blood specimen (specimen) BLOOD SPECIMEN / Unknown 05/18/2015 5:11 AM PRODUCTION CHECKER 05/18/2015 5:20 AM PRODUCTION CHECKER Liang Lynch MD LAB - CHEMISTRY [facility] Organization Address City/State/[facility] [place] [address], [facility] [phone] * XR CHEST 2VW (05/17/2015 8:32 AM PRODUCTION CHECKER) Anatomical Region Laterality Modality Chest Other Impressions 05/17/2015 10:36 AM PRODUCTION CHECKER IMPRESSION: No acute pulmonary process. Dictated by Jame Walters MD (president ergonomic consulting). I, Dr. EWA JOYA M.D. have personally reviewed and interpreted this examination/study. This report was electronically signed by EWA JOYA M.D. ??on 05/17/2015 10:36 AM . Narrative 05/17/2015 10:36 AM PRODUCTION CHECKER EXAMINATION: XR CHEST PA AND LATERAL DATE: 05/17/2015 8:32 AM HISTORY: Chest Pain COMPARISON: No prior study is available for comparison. FINDINGS: There is no focal consolidation, pleural effusion, or pneumothorax. The cardiomediastinal silhouette is normal. The visible bony thorax is intact. Procedure Note wEa Joya MD - 06/14/2017 EXAMINATION: XR CHEST PA AND LATERAL DATE: 05/17/2015 8:32 AM HISTORY: Chest Pain COMPARISON: No prior study is available for comparison. FINDINGS: There is no focal consolidation, pleural effusion, or pneumothorax. Thecardiomediastinal silhouette is normal. The visible bony thorax isintact. IMPRESSION IMPRESSION: No acute pulmonary process. Dictated by Jame Walters MD (president ergonomic consulting). I, Dr. EWA JOYA M.D. have personally reviewed and interpreted thisexamination/study. This report was electronically signed by EWA JOYA M.D. on 05/17/201510:36 AM . Aaron Bro MD DIAGNOSTIC IMAGING O RDERABLES * TROPONIN I (05/17/2015 8:06 AM PRODUCTION CHECKER) Troponin I <0.010 <0.032 ng/mL [facility] Blood specimen (specimen) BLOOD SPECIMEN / Unknown 05/17/2015 8:06 AM PRODUCTION CHECKER 05/17/2015 8:11 AM PRODUCTION CHECKER Aaron Bro MD LAB - CHEMISTRY [facility] Organization Address City/State/[facility] Co de Phone Number [address] [phone] * (ABNORMAL) CBC W AUTO DIFFERENTIAL (05/17/2015 8:06 AM PRODUCTION CHECKER) Only the most recent of2 resultswithin the time period is included. WBC 6.4 3.5 - 10.5 10? 3 /uL [facility] RBC 4.95 3.90 - 5.00 10? 6 /uL [facility] Hemoglobin 13.9 12.0 - 15.5 g/dL [facility] Hematocrit 42.6 35.0 - 45.0 % [facility] MCV 86.1 81.0 - 97.0 fL [facility] MCH 28.1 28.0 - 34.0 pg [facility] MCHC 32.6 32.0 - 36.0 g/dL [facility] Platelet Count 182 150 - 400 10? 3 /uL [facility] RDW-SD 41.2 36.0 - 50.0 fL [facility] RDW-CV 13.0 11.2 - 14.8 % [facility] MPV 11.3 9.3 - 12.8 fL [facility] nRBC Absolute 0.00 0 10? 3 /uL [facility] nRBC Auto 0.0 0 /100 WBC [facility] Neutrophils % 46.5 35.0 - 70.0 % [facility] Lymphocytes % 41.8 19.7 - 55.1 % [facility] Monocytes % 7.5 3.0 - 15.0 % [facility] Eosinophils % 3.9 0.0 - 6.0 % [facility] Basophil % 0.3 0.0 - 1.5 % [facility] Neutrophils Absolute 3.0 1.6 - 7.0 10? 3 /uL [facility] Lymphocyte Absolute 2.7 0.8 - 2.9 10? 3 /uL [facility] Monocytes Absolute 0.48 0.14 - 0.66 10? 3 /uL [facility] Eosinophils Absolute 0.25(H) 0.00 - 0.22 10? 3 /uL [facility] Basophils Absolute 0.02 0.00 - 0.06 10? 3 /uL [facility] Immature Granulocytes % 0.2 0.0 - 1.0 % [facility] Blood specimen (specimen) BLOOD SPECIMEN / Unknown 05/17/2015 8:06 AM PRODUCTION CHECKER 05/17/2015 8:11 AM PRODUCTION CHECKER Aaron Bro MD LAB - HEMATOLOGY ORD ERABLES [facility] [address] [phone] * COMPREHENSIVE METABOLIC PANEL (05/17/2015 8:06 AM PRODUCTION CHECKER) BUN 12 7 - 26 mg/dL [facility] Creatinine 0.7 0.6 - 1.2 mg/dL [facility] Sodium 141 136 - 145 mmol/L [facility] Potassium 3.5 3.5 - 4.5 mmol/L [facility] Chloride 106 98 - 107 mmol/L [facility] CO2 26 22 - 29 mmol/L [facility] Glucose 86 70 - 115 mg/dL [facility] Calcium 9.6 8.4 - 10.2 mg/dL [facility] Protein Total 7.3 6.0 - 8.3 g/dL [facility] Albumin 3.9 3.4 - 5.0 g/dL [facility] Bilirubin Total 0.2 0.2 - 1.2 mg/dL [facility] Alkaline Phosphatase 90 40 - 150 Units/L [facility] ALT 32 0 - 55 Units/L [facility] AST 24 5 - 34 Units/L [facility] Anion Gap 13 8 - 18 [facility] BUN/Creatinine Ratio 17 7 - 23 [facility] Osmolality Calculated 276 270 - 300 mOsm/kg [facility] Albumin/Globulin Ratio 1.1 1.1 - 2.3 [facility] eGFR >60 >60 mL/min/1.7 3 m2 [facility] Blood specimen (specimen) BLOOD SPECIMEN / Unknown 05/17/2015 8:06 AM PRODUCTION CHECKER 05/17/2015 8:11 AM PRODUCTION CHECKER Aaron Bro MD LAB - CHEMISTRY [facility] Performing Organization Address City/State/[facility] Co de Phone Number [address] [phone] * CK + CKMB PANEL (05/17/2015 8:06 AM PRODUCTION CHECKER) CK Total 166 30 - 200 Units/L [facility] CK-MB 1.7 0.0 - 6.6 ng/mL [facility] Blood specimen (specimen) BLOOD SPECIMEN / Unknown 05/17/2015 8:06 AM PRODUCTION CHECKER 05/17/2015 8:11 AM PRODUCTION CHECKER Aaron Bro MD LAB - CHEMISTRY [facility] [place] [id number] [address] [phone] * ECHO W DOPPLER AND COLOR FLOW (05/17/2015 12:00 AM PRODUCTION CHECKER) Anatomical Region Laterality Modality Other 05/17/2015 Liang Lynch MD ECHOCARDIOGRAPHY RAD IANT * XR KNEE LEFT 4VW OR MORE (08/05/2012 9:47 AM CDT) Only the most recent of3 resultswithin the time period is included. Anatomical Region Laterality Modality Lower Extremity Other Impressions 08/05/2012 11:06 AM CDT IMPRESSION: Lateral tibial plateau fracture with articular depression, unchanged alignment. This report was dictated by Karthik Acevedo MD (president ergonomic consulting). Dr. TERRY Ansari M.D. have personally reviewed and interpreted this examination/study. This report was electronically signed by TERRY BELTRAN M.D. ??on 08/05/2012 11:06 AM . Narrative 08/05/2012 11:06 AM CDT EXAM: LEFT KNEE, 4 VIEWS DATE: 08/05/2012 HISTORY: Fracture COMPARISON: 07/15/2012 FINDINGS: There is a fracture of the lateral tibial plateau with articular depression which appears unchanged in alignment and demonstrates slightly increased sclerosis compared to the prior exam. The small volume joint effusion has resolved. No focal soft tissue swelling is seen. Procedure Note Terry Beltran MD - 06/15/2017 EXAM: LEFT KNEE, 4 VIEWS DATE: 08/05/2012 HISTORY: Fracture COMPARISON: 07/15/2012 FINDINGS: There is a fracture of the lateral tibial plateau with articulardepression which appears unchanged in alignment and demonstrates slightlyincreased sclerosis compared to the prior exam. The small volume jointeffusion has resolved. No focal soft tissue swelling is seen. IMPRESSION IMPRESSION: Lateral tibial plateau fracture with articular depression, unchangedalignment. This report was dictated by Karthik Acevedo MD (president ergonomic consulting). Dr. TERRY Ansari M.D. have personally reviewed and interpreted thisexamination/study. This report was electronically signed by TERRY BELTRAN M.D. on 08/05/201211:06 AM . Feliberto Sandoval MD DIAGNOSTIC IMAGING O [facility] Care Teams [employer] Developer Relationship Specialty Start Date End Date Amor Contreras MD PCP - General Internal Medicine 06/29/12
--- OUTSIDE RECORDS SUMMARY | 2024-03-20 02:28 | XMS_ITS | Clinical Summary ---
Author Organization [facility] [employer] Address [address] [place] [address] Care Team Providers Care Bank Advisor Name Role Phone Amor Contreras MD Primary Care Provider [phone] [facility] [employer],non-owned Affiliates and Associated Physician Practices is amultiple site organization consisting of ambulatory clinics and hospital sitesin [place], [place], [place] and [place]. This disclosure is being madepursuant to the Care Everywhere program and may not contain all information available regarding this patient. Last updated 17.[facility] [employer] Allergies Active Allergy Reactions Criticality Noted Date [...] fluticasone propionate (FLONASE) 50 MCG/ACT nasal spray [place] 2 sprays into each nostril once daily 16 g 11 02/22/2020 Active Active Problems Problem Noted Date Diagnosed Date Deviated nasal septum 12/21/2019 Nasal polyps 12/21/2019 Nasal turbinate hypertrophy 12/21/2019 Chronic pansinusitis 12/21/2019 SVT (supraventricular tachycardia) 05/17/2015 Osteopenia 01/14/2015 Immunizations Name Administration Dates Next Due Covid Pfizer primary monoval ent 12+ yr 0.3mL Purple cap 04/11/2020,03/21/2020 INFLUENZA 01/05/2020 Family History Medical History Relation Name Comments Allergic Rhinitis Brother 1 Allergic Rhinitis Brother 2 Allergic Rhinitis Father Other Mother GDB Relation Name Status Comments Brother 1 Brother 2 Father Mother Social History Tobacco Use Types Packs/Day Years Used Date Smoking Tobacco: Never Smokeless Tobacco: Never Sex and Gender Information Value Date Recorded Sex Assigned at Female 05/21/2021 12:05 PM MANAGER ACTION Gender Identity Female 05/21/2021 12:05 PM MANAGER ACTION Sexual Orientation Straight 05/21/2021 12 :05 PM MANAGER ACTION Last Filed Vital Signs Vital Sign Reading Time Taken Comments Blood Pressure 105/68 06/27/2020 8:18 AM CDT Pulse 65 06/27/2020 8:18 AM CDT Temperature 36.8 ??C (98.2 ??F) 06/27/2020 8:18 AM CD T Respiratory Rate 13 02/14/2020 2:18 PM MANAGER ACTION Oxygen Saturation 97% 02/14/2020 2:18 PM MANAGER ACTION Inhaled Oxygen Concentration - - Weight 61.2 kg (135 lb) 06/27/2020 8:18 AM CDT Height 160 cm (5' 3 ) 06/27/2020 8:18 AM CDT Body Mass Index 23.91 06/27/2020 8:18 AM CDT Plan of Treatment Health Maintenance Due Date Last Done Comments BONE DENSITY TESTING 1960 COLOGUARD (AGES 45-75) - COL ON CA SCREENING 1958 COLON MONITORING 1958 COLONOSCOPY - COLON CA SCREENING 1958 CT COLONOGRAPHY - COLON CA SCREENING 1960 Colorectal Cancer Screening 1958 FIT - COLON CA SCREENING 1958 FLEX SIG - COLON CA SCREENING 1958 MAMMOGRAM 1960 PAP SMEAR 1958 HIV SCREENING 1973 HEPATITIS C SCREENING 07/03/1976 DTAP/TDAP/TD VACCINES (1 - Tdap) 1977 ZOSTER VACCINE (1 of 2) 2008 LIPID TESTING 05/17/2020 05/18/2015 DEPRESSION SCREENING 03/17/2023 PNEUMOCOCCAL VACCINE 65+ (1 of 1 - PCV) 07/09/2023 COVID-19 VACCINE (3 - 2023-2 5 season) 2023 04/11/2020, 03/21/2020 INFLUENZA VACCINE (#1) 2023 01/05/2020 Respiratory Syncytial Virus (RSV) Vaccine Pt: or over 60 yrs (1 - 1-dose 75+ series) 2033 HEPATITIS B VACCINE Aged Out No longe r eligible based on patient's age to complete this topic HIB VACCINE Aged Out No longer eligi ble based on patient's age to complete this topic HPV VACCINE Aged Out No longer eligi ble based on patient's age to complete this topic MENINGOCOCCAL VACCINE Aged Out No jonathan jone eligible based on patient's age to complete this topic Procedures Procedure Name Priority Date/Time Associated Diagnosis Comments LIPID PROFILE Routine 05/18/2015 5:11 AM MANAGER ACTION from Last 3 Months or Most Recently Relevant to Health Maintenance Results * (ABNORMAL) LIPID PROFILE (05/18/2015 5:11 AM MANAGER ACTION) Cholesterol Total 165 <200 mg/dL [facility] HDL 38(L) >40 mg/dL [facility] Comment: ATP III Classification of HDL Cholesterol: ? <40 mg/dL: ??Considered a major risk factor. ? >60 mg/dL: ??Considered a negative risk factor. ? LDL Calculated 109(H) <100 mg/dL [facility] Comment: ATP III Classification of LDL Cholesterol: ?<100 mg/dL: ??Optimal ? 100 - 129 mg/dL: ??Near Optimal/Above Optimal ? 130 - 159 mg/dL: ??Borderline High ? 160 - 189 mg/dL: ??High ?>190 mg/dL: ??Very High ? Triglycerides 91 <150 mg/dL [facility] Comment: ATP III Classification of Triglycerides: ?<150 mg/dL: ??Normal ? 150 - 199 mg/dL: ??Borderline High ? 200 - 400 mg/dL: ??High ?>500 mg/dL: ??Very High Blood specimen (specimen) BLOOD SPECIMEN / Unknown 05/18/2015 5:11 AM MANAGER ACTION 05/18/2015 5:20 AM MANAGER ACTION Liang Lynch MD LAB - CHEMISTRY [place] [facility] [address] [phone] from Last 3 Months or Most Recently Relevant to Health Maintenance Care Teams Bank Advisor Relationship Specialty Start Date End Date Amor Contreras MD PCP - General Internal Medicine 06/29/12
--- OUTSIDE RECORDS SUMMARY | 2024-03-20 02:29 | XMS_ITS | Encounter Summary ---
Author Organization [facility] Address [facility] [place] [address] Care Team Providers Care Men'S Designer Name Role Phone Amor Conrteras MD Primary Care Provider [phone] Encounter Details Date Type Department Care Team (Latest Contact Info) Description 03/08/2020 Travel Social History Tobacco Use Types Packs/Day Years Used Date Smoking Tobacco: Never Smokeless Tobacco: Never Sex and Gender Information Value Date Recorded Sex Assigned at Female 05/21/2021 12:05 PM CERTIFIED WELLNESS PROGRAM MANAGER Gender Identity Female 05/21/2021 12:05 PM CERTIFIED WELLNESS PROGRAM MANAGER Sexual Orientation Straight 05/21/2021 12 :05 PM CERTIFIED WELLNESS PROGRAM MANAGER COVID-19 Exposure Response Date Recorded In the last month, have you been in contact with someone who was confirmed or suspected to have Coronavirus / COVID-19? Unable to assess 03/08/2020 6:14 PM CERTIFIED WELLNESS PROGRAM MANAGER documented as of this encounter Plan of Treatment Not on file documented as of this encounter Visit Diagnoses Not on filedocumented in this encounter Care Teams Men'S Designer Relationship Specialty Start Date End Date Amor Contreras MD PCP - General Internal Medicine 06/29/12 documented as of this encounter
--- OUTSIDE RECORDS SUMMARY | 2024-03-20 02:29 | XMS_ITS | Encounter Summary ---
Author Organization [facility] Address [facility] [place] [address] Care Team Providers Care Performing Arts Road Manager Name Role Phone Amor Contreras MD Primary Care Provider [phone] Encounter Details Date Type Department Care Team (Latest Contact Info) Description 02/03/2020 Travel Social History Tobacco Use Types Packs/Day Years Used Date Smoking Tobacco: Never Smokeless Tobacco: Never Sex and Gender Information Value Date Recorded Sex Assigned at Female 05/21/2021 12:05 PM HOT WORKER Gender Identity Female 05/21/2021 12:05 PM HOT WORKER Sexual Orientation Straight 05/21/2021 12 :05 PM HOT WORKER COVID-19 Exposure Response Date Recorded In the last month, have you been in contact with someone who was confirmed or suspected to have Coronavirus / COVID-19? No / Unsure 02/03/2020 8:07 AM HOT WORKER documented as of this encounter Plan of Treatment Not on file documented as of this encounter Visit Diagnoses Not on filedocumented in this encounter Care Teams Performing Arts Road Manager Relationship Specialty Start Date End Date Amor Contreras MD PCP - General Internal Medicine 06/29/12 documented as of this encounter
--- OUTSIDE RECORDS SUMMARY | 2024-03-20 02:29 | XMS_ITS | Encounter Summary ---
Author Organization [facility] Address [facility] [facility] [place] [address] Care Team Providers Care Set Off Blocker Name Role Phone Amor Contreras MD Primary Care Provider [phone] Encounter Details Date Type Department Care Team (Latest Contact Info) Description 02/03/2020 8:51 AM MANAGER CREDIT - 02/03/2020 11:59 PM MANAGER CREDIT Hospital Encounter [facility] OP DRAW STATION [address] [place] [address] [phone] Magdaleno Martinez DO [address] [facility] [place] [address] Discharge Disposition: Home or Self Care Social History Tobacco Use Types Packs/Day Years Used Date Smoking Tobacco: Never Smokeless Tobacco: Never Sex and Gender Information Value Date Recorded Sex Assigned at Female 05/21/2021 12:05 PM MANAGER CREDIT Gender Identity Female 05/21/2021 12:05 PM MANAGER CREDIT Sexual Orientation Straight 05/21/2021 12 :05 PM MANAGER CREDIT COVID-19 Exposure Response Date Recorded In the last month, have you been in contact with someone who was confirmed or suspected to have Coronavirus / COVID-19? No / Unsure 02/03/2020 8:07 AM MANAGER CREDIT documented as of this encounter Medications at Time of Discharge Medication Sig Dispensed Refills Start Date End Date calcium citrate (CITRACAL 950) 950 MG tablet Take 950 mg by mouth once daily cetirizine (ZYRTEC ALLERGY) 10 MG tablet Take 10 mg by mouth as needed multivitamin daily tablet Take 1 tablet by mouth daily with food cefUROXime (CEFTIN) 500 MG tablet Take 1 tablet by mouth 2 times daily for 7 days 14 tablet 02/14/2020 02/21/2020 diphenhydrAMINE (BENADRYL ALLERGY) 25 MG tablet Take by mouth every 4 hours as needed for Itching 06/27/2020 fluticasone propionate (FLONASE) 50 MCG/ACT nasal spray [place] 2 sprays into each nostril once daily 16 g 3 12/21/2019 02/22/2020 oxyCODONE, immediate release, (ROXICODONE) 5 MG tablet Take 1 tablet by mouth every 6 hours as needed for Pain 12 tablet 02/14/2020 02/22/2020 predniSONE (DELTASONE) 10 MG tablet 40mg po qam for 3 days, 30mg po qam for 4 days, 20mg po qam for 10 days, 10mg po qam for 4 days 48 tablet 02/14/2020 02/22/2020 documented as of this encounter Plan of Treatment Not on file documented as of this encounter Procedures Procedure Name Priority Date/Time Associated Diagnosis Comments TYPE + SCREEN PANEL Routine 02/03/2020 9 :20 AM MANAGER CREDIT Preop examination CBC W/O DIFFERENTIAL Routine 02/03/2020 9:20 AM MANAGER CREDIT Preop examination BASIC METABOLIC PANEL (CALCIUM TOTAL) Routine 02/03/2020 9:20 AM MANAGER CREDIT Preop examination documented in this encounter Results * BASIC METABOLIC PANEL (CALCIUM TOTAL) (02/03/2020 9:20 AM MANAGER CREDIT) BUN 11 7 - 26 mg/dL 02/03/2020 10:02 AM [facility] Creatinine 0.7 0.6 - 1.2 mg/dL 02/03/2020 10:02 AM [facility] Sodium 140 136 - 145 mmol/L 02/03/2020 10:02 AM [facility] Potassium 4.4 3.5 - 4.5 mmol/L 02/03/2020 10:02 AM MANAGER CREDIT [facility] Chloride 104 98 - 107 mmol/L 02/03/2020 10:02 AM [facility] CO2 26 22 - 29 mmol/L 02/03/2020 10:02 AM [facility] Glucose 87 70 - 115 mg/dL 02/03/2020 10:02 AM [facility] Calcium 9.0 8.4 - 10.2 mg/dL 02/03/2020 10:02 AM [facility] Anion Gap 14 8 - 18 02/03/2020 10:02 AM [facility] BUN/Creatinine Ratio 16 7 - 23 02/03/2020 10:02 AM [facility] Osmolality Calculated 289 270 - 300 mOsm/kg 02/03/2020 10:02 AM [facility] eGFR >60 >60 mL/min/1.7 3 m2 02/03/2020 10:02 AM [facility] Blood BLOOD SPECIMEN / Unknown Lab Venipuncture / Unknown 02/03/2020 9:20 AM MANAGER CREDIT 02/03/2020 9:38 AM [facility] Magdaleno Martinez DO LAB - CHEMISTRY O RDERABLES [facility] [address] [place] [address], [facility] [phone] * (ABNORMAL) CBC W/O DIFFERENTIAL (02/03/2020 9:20 AM [facility]) WBC 6.1 3.5 - 10.5 10? 3 /uL 02/03/2020 9:48 AM [facility] RBC 5.13(H) 3.90 - 5.00 10? 6 /uL 02/03/2020 9:48 AM [facility] Hemoglobin 13.8 12.0 - 15.5 g/dL 02/03/2020 9:48 AM [facility] Hematocrit 44.8 35.0 - 45.0 % 02/03/2020 9:48 AM [facility] MCV 87.3 81.0 - 97.0 fL 02/03/2020 9:48 AM [facility] MCH 26.9(L) 28.0 - 34.0 pg 02/03/2020 9:48 AM [facility] MCHC 30.8(L) 32.0 - 36.0 g/dL 02/03/2020 9:48 AM [facility] Platelet Count 277 150 - 400 10? 3 /uL 02/03/2020 9:48 AM [facility] RDW-SD 41.1 36.0 - 50.0 fL 02/03/2020 9:48 AM [facility] RDW-CV 12.8 11.2 - 14.8 % 02/03/2020 9:48 AM [facility] MPV 10.2 9.3 - 12.8 fL 02/03/2020 9:48 AM [facility] nRBC Absolute 0.00 0 10? 3 /uL 02/03/2020 9:48 AM [facility] nRBC Auto 0.0 0 /100 WBC 02/03/2020 9:48 AM [facility] Blood BLOOD SPECIMEN / Unknown Lab Venipuncture / Unknown 02/03/2020 9:20 AM MANAGER CREDIT 02/03/2020 9:38 AM MANAGER CREDIT Magdaleno Martinez DO LAB - HEMATOLOGY ORDERABLES [address] [address], [facility] [phone] * TYPE + SCREEN PANEL (02/03/2020 9:20 AM MANAGER CREDIT) Antibody Screen NEG 0 10:48 AM [facility] ABO Rh A POS 02/03/2020 10:48 AM [facility] Blood Bank BLOOD SPECIMEN / Unknown Lab Venipuncture / Unknown 02/03/2020 9:20 AM MANAGER CREDIT 02/03/2020 9:38 AM MANAGER CREDIT Magdaleno Martinez DO LAB - BLOOD BANK ORDERABLES [facility] [place] [address], [place] [phone] documented in this encounter Visit Diagnoses Diagnosis Preop examination- Primary Preoperative examination, unspecified documented in this encounter Care Teams Set Off Blocker Relationship Specialty Start Date End Date Amor Contreras MD PCP - General Internal Medicine 06/29/12 documented as of this encounter
--- OUTSIDE RECORDS SUMMARY | 2024-03-20 02:29 | XMS_ITS | Encounter Summary ---
Author Organization [facility] Address [address] [place] [address] Care Team Providers Care Feed Inspection Supervisor Name Role Phone Amor Contreras MD Primary Care Provider [phone] Reason for Visit * Auth/Cert Specialty Diagnoses / Procedures Referred By Facundo t Referred To Contact Diagnoses Nasal polyps Deviated nasal septum Chronic pansinusitis Nasal turbinate hypertrophy NASAL POLYPS; DEVIATED NASAL SEPTUM; CHRONIC PANSINUSITIS; TURBINATE HYPERTROPHY Procedures ENDOSCOPIC SINUS WITH NAVIGATION Referral ID Status Reason Start Date Expiration Date Visits Re quested Visits Authorized [id number] 1 1 Encounter Details Date Type Department Care Team (Latest Contact Info) Description 02/14/2020 8:24 AM SINGING TEACHER - 02/14/2020 2:40 PM SINGING TEACHER Hospital Encounter [facility] [address] [place] [id number] Ernesto Conley MD [address] [place] [address] Surgery General Discharge Disposition: Home or Self Care Social History Tobacco Use Types Packs/Day Years Used Date Smoking Tobacco: Never Smokeless Tobacco: Never Sex and Gender Information Value Date Recorded Sex Assigned at Female 05/21/2021 12:05 PM SINGING TEACHER Gender Identity Female 05/21/2021 12:05 PM SINGING TEACHER Sexual Orientation Straight 05/21/2021 12 :05 PM SINGING TEACHER COVID-19 Exposure Response Date Recorded In the last month, have you been in contact with someone who was confirmed or suspected to have Coronavirus / COVID-19? Unable to assess 02/12/2020 9:45 AM SINGING TEACHER documented as of this encounter Last Filed Vital Signs Vital Sign Reading Time Taken Comments Blood Pressure 117/73 02/14/2020 2:18 PM SINGING TEACHER Pulse 62 02/14/2020 2:18 PM SINGING TEACHER Temperature 36.4 ??C (97.6 ??F) 02/14/2020 1:50 PM CS T Respiratory Rate 13 02/14/2020 2:18 PM SINGING TEACHER Oxygen Saturation 97% 02/14/2020 2:18 PM SINGING TEACHER Inhaled Oxygen Concentration - - Weight 64.9 kg (143 lb) 02/14/2020 9:10 AM SINGING TEACHER Height 160 cm (5' 3 ) 02/14/2020 9:10 AM SINGING TEACHER Body Mass Index 25.33 02/14/2020 9:10 AM SINGING TEACHER documented in this encounter Discharge Instructions * Discharge Instructions* Umang Winn MD - 02/14/2020 12:55 PM SINGING TEACHER Otolaryngology Discharge Instructions Disposition: Home Diet: Regular Diet Activity: No lifting greater than 10 pounds for [address] while taking narcotic pain medications. NO nose blowing. Take tylenol and motrin in alternating fashion. Wound care: Begin rinsing your nose 3 times daily tomorrow. Wear gauze under your nose as needed for drainage. Finish medications prescribed to you. Follow up: 1 week Clinic contact information: [phone] Other Instructions: Should you experience any of these symptoms... -Fever over 102 degrees. -Persistent pain, nausea, or vomiting. -Persistent bleeding. -Shortness of breath. -Significant redness or drainage from your incision. -Any other questions or concerns. ...During business hours call: the number listed above. ...On nights or weekends call: [phone], ask for the ENT resident ultrasound applications specialist. General Postsurgical Instructions You may expect to feel dizzy, weak, and drowsy for as long as 24 hours after receiving the medicinethat made you sleep (anesthetic). The following information pertains to your recovery period for the first 24 hours followingsurgery. Do not drive a car, ride a bicycle, participate in physical activities, or take public transportation until you are done taking narcotic pain medicines or as directed by your caregiver. Do not drink alcohol or take tranquilizers. Do not take medicine that has not been prescribed by your caregiver. Do not sign important papers or make important decisions while on narcotic pain medicines. Have a responsible person with you. CARE OF INCISION Change bandages (dressings) as directed. Take showers instead of baths until your caregiver gives you permission to take baths. Check with your caregiver if you have tubes coming from the wound site. Avoid heavy lifting (more than 10 pounds/4.5 kilograms), pushing, or pulling. Avoid activities that may risk injury to your surgical site. Only take [id number] or prescription medicines for pain, discomfort, or fever as directed by your caregiver. Do not take aspirin. It can make you bleed. SEEK MEDICAL CARE IF: You feel sick to your stomach (nauseous). You start to throw up (vomit). You have trouble eating or drinking. You have an oral temperature above 102?? F (38.9?? C). You have constipation that is not helped by adjusting diet or increasing fluid intake. Pain medicines are a common cause of constipation. SEEK IMMEDIATE MEDICAL CARE IF: You have persistent dizziness. You have difficulty breathing. You have an oral temperature above 102?? F (38.9?? C), not controlled by medicine. There is increasing pain or tenderness near or in the surgical site. Document Released: 06/22/2003 Document Re-Released: 05/28/2010 ExitCare?? Patient Information ??2011 [employer]. ING TEACHER documented in this encounter Medications at Time of Discharge [...] fluticasone propionate (FLONASE) 50 MCG/ACT nasal spray Antigo 2 sprays into each nostril once daily [...] 02/14/2020 02/22/2020 documented as of this encounter H&P Notes * Ernesto Conley MD - 02/14/2020 10:34 AM CST Otolaryngology Short Stay Form Patient name: Colette Lopez Date of : 1960 Today's Date: 02/14/2020 HPI: Colette Lopez is a 59 year old female with chronic sinusitis and septal deviation presenting for surgery. There have been no changes to the patient's health since his/her last office visit. REVIEW OF SYMPTOMS: Within normal limits except as above MEDICATIONS: No current facility-administered medications on file prior to encounter. Current Outpatient Medications on File Prior to Encounter Medication Sig Dispense Refill ??? calcium citrate (CITRACAL 950) 950 MG tablet Take 950 mg by mouth once daily ??? cetirizine (ZYRTEC ALLERGY) 10 MG tablet Take 10 mg by mouth as needed ??? diphenhydrAMINE (BENADRYL ALLERGY) 25 MG tablet Take by mouth every 4 hours as needed for Itching ??? fluticasone propionate (FLONASE) 50 MCG/ACT nasal spray Antigo 2 sprays into each nostril once daily 16 g 3 ALLERGIES: Allergies Allergen Reactions ??? Penicillins Unknown Pt unable to recall ??? Sulfa Drugs Unknown Pt unable to recalll ??? Chlorhex Gluc-Isopropyl Alcohol [Chloraprep One Step] Rash and Skin Reactions Rash with CHG @2% Jah wipes IMMUNIZATIONS: UTD DEVELOPMENTAL HISTORY: Age appropriate PREVIOUS SERIOUS ILLNESS/SURGERY: Past Surgical History: Procedure Laterality Date ??? ENT SURGERY 2012 removal of lump from tongue ??? Knee Arthroscopy Left 2010 PREVIOUS CHILDHOOD ILLNESS: Past Medical History: Diagnosis Date ??? Chronic pansinusitis ??? Deviated nasal septum ??? Nasal polyps ??? Snoring PERINENT FAMILY / SOCIAL HISTORY: Family History Problem Relation Name Age of Onset ??? Other Mother GDB ??? Allergic Rhinitis Father ??? Allergic Rhinitis Brother ??? Allergic Rhinitis Brother PHYSICAL EXAM: BP 102/72 Pulse 72 Temp 97.4 ??F (36.3 ??C) (Oral) Resp 14 Ht 1.6 m (5' 3 ) Wt 64.9 kg (143 lb) BMI25.33 kg/m2 GEN: NAD HEAD: NCAT EYES: EOMI EARS: deferred NOSE: patent THROAT: clear NECK: supple HEART: Regular rate and rhythm, normal pulses and capillary refill LUNGS: clear to auscultation, no wheezes, rales, or rhonchi ABDOMEN: Abdomen is soft, no tenderness, masses, or organomegaly EXTREMITIES: no clubbing, cyanosis or edema NEURO: no focal findings or movement disorder note SKIN: wnl ASSESMENT: Colette Lopez is a 59 year old female with chronic sinusitis and septal deviation PLAN: TOTAL ETHMOIDECTOMY; MAXILLARY ANTROSTOMY; SPHENOIDECTOMY; SEPTOPLASTY;TURBINECTOMY; bilateral I have seen and examined the patient with the resident and I agree with the findings and plan of care as documented by the resident. Note above edited by me. Ernesto Conley MD 02/14/2020 10:49 AM ING TEACHER documented in this encounter OR Notes * Operative - Umang Winn MD - 02/14/2020 11:40 AM CST PROCEDURE DATE: 02/14/2020 PREOPERATIVE DIAGNOSIS: Bilateral pansinusitis with polyposis POSTOPERATIVE DIAGNOSIS: Same PROCEDURE PERFORMED: 1. Bilateral functional endoscopic sinus surgery: Bilateral total ethmoidectomies, Bilateral maxillary antrostomies with tissue removal, Bilateral sphenoidotomies with tissue removal 2. Image guidance for extracranial procedure. SURGEON: Ernesto Conley MD POACHER OPERATOR: Umang Winn MD ANESTHESIA: General endotracheal LOCAL ANESTHESIA: 1% lidocaine with 1:100,000 epinephrine and Afrin. ESTIMATED BLOOD LOSS: 50 mL. COMPLICATIONS: None. FINDINGS: 1. Mild polypoid disease 2. Exposure of right orbital fat. No evidence of hematoma at end of case. INDICATIONS FOR PROCEDURE: Colette Lopez is our 59 year old female with a history of pansinusitis,confirmed on CT scan, who presented with multiple nasal symptoms and was tried on maximal medical therapy without relief. The patient was given the risks, benefits, alternatives, and indications for bilateral functional endoscopic sinus surgery, including the risks of damage to the orbits, skull base, bleeding, infection, amongst others, and they wished to proceed. PROCEDURE IN DETAIL: Colette Lopez was greeted in the perioperative area where her history, physical, and consent were reviewed and updated as appropriate. The patient was found to be fit for surgery and was wheeled back to the operating room and placed on the table in the supine position. Next, the patient was sedated and intubated by anesthesia without difficulty. They were prepped and draped instandard sterile fashion. The ENT navigation system [employer] by [employer] was calibrated to an accuracy of within 2-3 millimeters. Using the 0-degree endoscope, the bilateral nasal cavities were inspected. 1% lidocaine with 1:100,000 epinephrine was used for a local infiltrate. Afrin-soaked pledgets were placed on the left side while we began working on the right side. Throughout the case, the image guidance was used to confirm landmarks when necessary. Using the ball probe, through biting instruments, the uncinate process was removed chuy large maxillary antrostomy was performed incorporating the natural os. The microdebrider was usedto trim the mucosal edges. Next, the bulla ethmoidalis was entered using a curette. Using the microdebrider, as well as through biting instruments,an anterior and posterior ethmoidectomy was performed on this side. Next, a large sphenoidotomy was performed using the curette and kerrison rongeurs until the partitions were taken up to the skull base. This was continued anteriorly along the skull base until the ethmoids were removed. The lamina papyrcea was fractured during the case and fat protruded through this. No evidence of hematoma or muscle injury was found. Next, we turned our attention towards the left side. A similar procedure was performed on the left side. Using the ball probe, through biting insruments, the uncinate process was removed and a large maxillary antrostomy was performed incorporating the natural os. The microdebrider was used to trim the mucosal edges. Next, the bulla ethmoidalis was entered using a curette. Using the microdebrider, as well as through biting instruments, an anterior and posterior ethmoidectomy was performed on this side. Next, a large sphenoidotomy was performed using the curette and kerrison rongeurs until the partitions were taken up to the skull base. This was continued anteriorly along the skull base until the ethmoids were removed Throughout the FESS, the polyps and purulence that were encountered were removed, and they were trimmed to within a few millimeters of the bony landmarks. At the end of the case, hemostasis was achieved The patient tolerated the procedure well. Dr. Conley was present throughout. PLAN OF CARE: The patient will be discharged home on po medications as appropriate including pain medications, antibiotics, and steroids. The patient has been given specific post operative instructions including irrigating the sinuses with a formulated saline solution and follow up in the outpatient clinic. Umang Winn MD ING TEACHER documented in this encounter Plan of Treatment Not on file documented as of this encounter Procedures Procedure Name Priority Date/Time Associated Diagnosis Comments CARDIAC EKG ORDER 02/16/2020 1:02 AM SINGING TEACHER PATHOLOGY TISSUE Routine 02/14/2020 11:5 4 AM SINGING TEACHER Nasal polyps Deviated nasal septum Chronic pansinusitis Nasal turbinate hypertrophy WA NASAL SCOPE,BX/RMV POLYP/DEBRID 02/14/2020 11:40 AM SINGING TEACHER Nasal polyps Deviated nasal septum Chronic pansinusitis Nasal turbinate hypertrophy Special Needs Supine, STORZ VIDEO TOWER, Vringo STEALTH, MICRODEBRIDER CONSOLE.DS 02/10 documented in this encounter Results * CARDIAC EKG ORDER (02/16/2020 1:02 AM SINGING TEACHER) Narrative 02/16/2020 1:02 AM SINGING TEACHER Ordered by an unspecified provider. Scanned Document CARDIAC SERVICES ORD ERABLES * PATHOLOGY TISSUE (02/14/2020 11:54 AM SINGING TEACHER) Case Report Surgical Pathology Report ? Case: [id number] ? Authorizing Provider: ??Ernesto Conley MD ? Collected: ? 02/14/2020 11:54 AM ? Ordering Location: ? [facility] ?Received: ?02/14/2020 03:02 PM ? Pathologist: ? Triston Adam MD ? Specimen: ?Sinus, Bilateral sinus contents - PERM ? 02/15/2020 4:21 PM [facility] Final Diagnosis Bilateral sinus contents, evacuation (A): - Respiratory mucosa with chronic inflammation - 50 eosinophils per high power field 02/15/2020 4:21 PM [facility] Microscopic Description and Comment Performed. 02/15/2020 4:21 PM [facility] PATH[facility] Clinical History The patient is 59 year old female with nasal polyps and nasal turbinate hypertrophy who underwent total ethmoidectomy, maxillary antrostomy, sphenoidectomy and septoplasty. 02/15/2020 4:21 PM [facility] PATHOLOG[facility] Gross Description The requisition and specimen is identified with the patient's name, Colette Lopez. Received in formalin in, specimen A are [id number] cartilage and soft tissue fragments measuring 2.8 x 2.5 x 1.0 cm in aggregate. The specimen is entirely submitted in cassette A1-A2. IY 02/15/2020 4:21 PM [facility] PATH[facility]Y LAB Disclaimer The performance characteristics of all immunohistochemical and indirect immunofluorescence stains (if any) cited in this report were determined by the Histopathology Laboratory of [facility]. Some of these tests were developed [...] the attending (teaching) pathologist. 02/15/2020 4:21 PM [facility] PATH[facility] LAB Embedded Images 02/15/2020 4:21 PM [facility] PATH[facility]Y LAB Biopsy, Excision SINUS / Unknown 02/14/20 20 11:54 AM SINGING TEACHER 02/14/2020 3:02 PM SINGING TEACHER Comment:Pre-op diagnosis: NASAL POLYPS; DEVIATED NASAL SEPTUM; CHRONIC PANSINUSITIS; TURBINATE HYPERTROPHY Ernesto Conley MD LAB - PATHOLOGY/CYT OLOGY ORDERABLES Performing Organization Address [facility] de Phone Number [facility] PATH[facility] [address] [phone] documented in this encounter Visit Diagnoses Diagnosis Preop examination Preoperative examination, unspecified Nasal polyps Deviated nasal septum Chronic pansinusitis Other chronic sinusitis Nasal turbinate hypertrophy Hypertrophy of nasal turbinates documented in this encounter Administered Medications Inactive Administered Medications - up to 3 most recent administrations Medication Order MAR Action Action Date Dose Rate Site fentaNYL (PF) (SUBLIMAZE) injection 50 mcg 50 mcg, Intravenous, EVERY 15 MIN PRN, Mild Pain, Starting on Fri02/14/20 at 1305, Until Fri02/14/20 at 1540, Maximum total of 4 doses. If patient reaches max total dose, please consult anesthesiologist prior to further administration of pain meds. Hold pain meds if there are signs of hypoventilation., PACU $ Given 02/14/2020 1:35 PM SINGING TEACHER 50 mcg lactated ringers infusion at 20 mL/hr, Intravenous, PRE-OP CONTINUOUS, Starting on Fri02/14/20 at 0900, Until Fri02/14/20 at 1540, Pre-op $ New Bag/Syringe 02/14/2020 9:15 AM SINGING TEACHER 1,000 mL 20 mL/hr Left Wrist oxyCODONE (immediate release) (ROXICODONE) tablet 5 mg 5 mg, Oral, EVERY 4 HOURS PRN, Moderate Pain, Starting on Fri02/14/20 at 1049, Until Fri02/14/20 at 1540 documented in this encounter Active and Recently Administered Medications Times are shown in SINGING TEACHER. Scheduled Medication Order 02/12/2020 02/13/2020 02/14/2020 albuterol-ipratropium (DUO-NEB) nebulizer solution 3 mL 3 mL, Inhalation, POST-OP MULTIPLE, Starting on Fri02/14/20 at 1305, Until Fri02/14/20 at 1540, For wheezing. Notify anesthesia immediately., PACU naloxone (NARCAN) injection 0.04 mg 0.04 mg, Intravenous, POST-OP MULTIPLE, Starting on Fri02/14/20 at 1305, Until Fri02/14/20 at 1540, Notify physician immediately, and mix 0.4 mg Naloxone in 9 mL Normal Saline for slow IV push. Administer dilute Naloxone solution IV very slowly (1 mL over 30 seconds) while observing the patient response and titrating to effect. If no response, call Rapid Response, continue IV Naloxone at the same rate up to a total of 0.8 mg of diluted Naloxone., PACU Continuous Medication Order 02/12/2020 02/13/2020 02/14/2020 lactated ringers infusion at 20 mL/hr, Intravenous, PRE-OP CONTINUOUS, Starting on Fri02/14/20 at 0900, Until Fri02/14/20 at 1540, Pre-op 0915 ($ New Bag/Syri nge - Provider: Claudette Barker RN) lactated ringers infusion at 125 mL/hr, Intravenous, CONTINUOUS, Starting on Fri02/14/20 at 1315, Until Fri02/14/20 at 1540, PACU 1315 (Due) PRN Medication Order 02/12/2020 02/13/2020 02/14/2020 acetaminophen (TYLENOL) tablet 1,000 mg 1,000 mg, Oral, ONCE PRN, pain, 1 dose, Starting on Fri02/14/20 at 1305, Until Fri02/14/20 at 1540, For pain, if not given in OR if not given in last 6 hours., PACU atropine injection 0.4 mg 0.4 mg, Intravenous, ONCE PRN, Other, bradycardia, 1 dose, Starting on Fri02/14/20 at 1305, Until Fri02/14/20 at 1540, For heart rate less than 40. Notify physician., PACU diphenhydrAMINE (BENADRYL) injection 25 mg 25 mg, Intravenous, ONCE PRN, Nausea/Vomiting, 1 dose, Starting on Fri02/14/20 at 1305, Until Fri02/14/20 at 1540, Second choice, use if first choice was ineffective., PACU fentaNYL (PF) (SUBLIMAZE) injection 100 mcg 100 mcg, Intravenous, EVERY 30 MIN PRN, Moderate Pain, Starting on Fri02/14/20 at 1305, Until Fri02/14/20 at 1540, Maximum total of 4 doses. If patient reaches max total dose, please consult anesthesiologist prior to further administration of pain meds. Hold pain meds if there are signs of hypoventilation., PACU fentaNYL (PF) (SUBLIMAZE) injection 50 mcg 50 mcg, Intravenous, EVERY 15 MIN PRN, Mild Pain, Starting on Fri02/14/20 at 1305, Until Fri02/14/20 at 1540, Maximum total of 4 doses. If patient reaches max total dose, please consult anesthesiologist prior to further administration of pain meds. Hold pain meds if there are signs of hypoventilation., PACU 1335 ($ Given - Prov ider: Andreina Holly RN) HYDROmorphone (DILAUDID) injection 0.5 mg 0.5 mg, Intravenous, EVERY 10 MIN PRN, Severe Pain, 4 doses, Starting on Fri02/14/20 at 1305, Until Fri02/14/20 at 1540, Maximum total of 4 doses If patient reaches max total dose, please consult anesthesiologist prior to further administration of pain meds. Hold pain meds if there are signs of hypoventilation., PACU lidocaine 1% - EPINEPHrine 1:100,000 injection (CANCELED) PRN, Starting on Fri02/14/20 at 1135, Until Fri02/14/20 at 1258, Intra-op 1135 ($ Given - Prov ider: Umang Winn MD) oxyCODONE (immediate release) (ROXICODONE) tablet 5 mg 5 mg, Oral, EVERY 4 HOURS PRN, Moderate Pain, Starting on Fri02/14/20 at 1049, Until Fri02/14/20 at 1540 oxymetazoline (AFRIN) 0.05 % nasal spray (CANCELED) PRN, Starting on Fri02/14/20 at 1130, Until Fri02/14/20 at 1258, Intra-op 1130 ($ Given - Prov ider: Umang Winn MD - Comment: Given to sterile field for soaking pledgets.) prochlorperazine (COMPAZINE) injection 10 mg 10 mg, Intravenous, ONCE PRN, Nausea/Vomiting, 1 dose, Starting on Fri02/14/20 at 1305, Until Fri02/14/20 at 1540, First choice, PACU documented in this encounter Care Teams Feed Inspection Supervisor Relationship Specialty Start Date End Date Amor Contreras MD PCP - General Internal Medicine 06/29/12 documented as of this encounter
--- OUTSIDE RECORDS SUMMARY | 2024-03-20 02:29 | XMS_ITS | Encounter Summary ---
Author Organization [facility] Address [facility] [facility] [address] [place] [address] Care Team Providers Care Automobile Service Station Mechanic Name Role Phone Amor Contreras MD Primary Care Provider [phone] Encounter Details Date Type Department Care Team (Late st Contact Info) Description 09/16/2012 [facility] - Orthopedics [address] [place] [phone] Feliberto Sandoval MD [address] [place] [address] OF ORTHOPEDIC SURGERY [place], [place] [id number] Social History Tobacco Use Types Packs/Day Years Used Date Smoking Tobacco: Never Assessed Sex and Gender Information Value Date Recorded Sex Assigned at Female 05/21/2021 12:05 PM CONSTRUCTION STONEM[employer]ON Gender Identity Female 05/21/2021 12:05 PM CONSTRUCTION STONEM[employer] Sexual Orientation Straight 05/21/2021 12 :05 PM CONSTRUCTION STONEMASON documented as of this encounter Plan of Treatment Not on file documented as of this encounter Visit Diagnoses Not on filedocumented in this encounter Care Teams Automobile Service Station Mechanic Relationship Specialty Start Date End Date Amor Contreras MD PCP - General Internal Medicine 06/29/12 documented as of this encounter
--- OUTSIDE RECORDS SUMMARY | 2024-03-20 02:29 | XMS_ITS | Encounter Summary ---
Author Organization [facility] Address [facility] [place] [address] Care Team Providers Care Digging Machine Operator Name Role Phone Amor Contreras MD Primary Care Provider [phone] Reason for Visit * Reason Comments Sinusitis Encounter Details Date Type Department Care Team (Late st Contact Info) Description 04/11/2020 8:00 AM DOCUMENT DESIGN SPECIALIST Office Visit [facility] OTOLARYNGOLOGY [address], [address] [place] [address] Ernesot Conley MD [facility] [place] [address] Nasal polyps (Primary Dx); Nasal turbinate hypertrophy; Chronic pansinusitis Social History Tobacco Use Types Packs/Day Years Used Date Smoking Tobacco: Never Smokeless Tobacco: Never Sex and Gender Information Value Date Recorded Sex Assigned at Female 05/21/2021 12:05 PM DOCUMENT DESIGN SPECIALIST Gender Identity Female 05/21/2021 12:05 PM DOCUMENT DESIGN SPECIALIST Sexual Orientation Straight 05/21/2021 12 :05 PM DOCUMENT DESIGN SPECIALIST COVID-19 Exposure Response Date Recorded In the last month, have you been in contact with someone who was confirmed or suspected to have Coronavirus / COVID-19? No / Unsure 03/21/2020 7:29 AM DOCUMENT DESIGN SPECIALIST documented as of this encounter Last Filed Vital Signs Vital Sign Reading Time Taken Comments Blood Pressure 105/64 04/11/2020 7:46 AM DOCUMENT DESIGN SPECIALIST Pulse 80 04/11/2020 7:46 AM DOCUMENT DESIGN SPECIALIST Temperature 36.8 ??C (98.2 ??F) 04/11/2020 7:46 AM CS T Respiratory Rate - - Oxygen Saturation - - Inhaled Oxygen Concentration - - Weight 61.2 kg (135 lb) 04/11/2020 7:46 AM DOCUMENT DESIGN SPECIALIST Height 160 cm (5' 3 ) 04/11/2020 7:46 AM DOCUMENT DESIGN SPECIALIST Body Mass Index 23.91 04/11/2020 7:46 AM DOCUMENT DESIGN SPECIALIST documented in this encounter Patient Instructions * Patient Instructions* Namita Philippe - 04/11/2020 7:48 AM DOCUMENT DESIGN SPECIALIST Thank you for visiting [facility] Otolaryngology - Head & Neck Surgery. We appreciate your confidence in allowing us to participate in your health care. You may receive a survey about your visit with us today. Making our patients happy isn???t just happy talk; it???s ourmission. Please tell us if we made the right impression on you- and how we can serve you better. Please SAVE the information below, it will assist you when it???s time for you to contact us. ??? To MAKE - CHANGE - CANCEL an office appointment If you become ill, need to be seen before your next scheduled appointment, or need to cancel or reschedule an appointment, please call our office at [phone] Friday through Friday from 8:30 am to4:30 pm. You can also request a routine appointment through your [employer] account. ??? Prescription Refills Contact your pharmacy to request all refills. The pharmacy will need to fax the request to us at . Please allow a minimum of 48-72 hours for your prescription to be completed. Your pharmacy will notify you when your prescription is ready to be picked up. ??? Medical Emergency / After Hours Contact Information If you have a medical emergency, please call 911 or go to the nearest emergency room. For urgent medical calls, which cannot wait until the office opens, please call the medical exchange at and ask the label press operator to page the ENT physician community organization worker. *Caller ID blocking service will need to be turned off for your call to be returned. We also specialize in Hearing Aids, Allergy testing, swallowing disorders, voice problems, cancer diagnosis, and so much more. Visit our website at [email or web address] for information about our practice and an interactive health encyclopedia. MENT DESIGN SPECIALIST documented in this encounter Progress Notes * Ernesto Conley MD - 04/11/2020 8:00 AM CST History of Present Illness 59 year old with a h/o nasal obstruction. ?? Presented initially after obtaining an MRI and the request of her PCP due to left sided headaches. He wanted her to start Lyrica, but the patient refused. States that she takes Excedrin for her headaches. This controls her headaches overall. At that visit she reported that she has right sided nasalobstruction. Has tried nasal sprays, and takes Zyrtec daily. Underwent allergy testing with Dr. Sawyer. Did not proceed with immunotherapy. Both of her brothers and her father have significant sinonasal issues and has undergone surgery. No previous CT scan of her sinuses. Her nasal obstruction issevere. Only some minimal improvement on medications. Denies sinonasal surgery. Referred to me after the MRI as there was noted to be sinusitis.treated her with medications and obtained a positive posttreatment CT scan. ?? She is now s/p bilateral total ethmoidectomy, maxillary antrostomy with tissue removal, sphenoidotomies with tissue removal on 02/14/2020. She is here today with reports of almost complete resolution of her eye pain. She has been compliant with use of the prescribed topical antibiotic, and still has a few days of this left to use. Notesthat she occasionally experiences mild bleeding after use of nasal saline irrigations. Review of Systems A 12-system review of systems was obtained and negative except for: Nose: sinus pain, post nasal drainage, congestion Past Medical History: Diagnosis Date ??? Chronic pansinusitis ??? Deviated nasal septum ??? Nasal polyps ??? Snoring Past Surgical History: Procedure Laterality Date ??? ENT SURGERY 2011 removal of lump from tongue ??? Knee Arthroscopy Left 2009 ??? SINUS SURGERY Bilateral 02/14/2020 Bilateral; TOTAL ETHMOIDECTOMY; MAXILLARY ANTROSTOMY; SPHENOIDECTOMY; SEPTOPLASTY;TURBINECTOMY Current Outpatient Medications Medication Sig Dispense Refill ??? calcium citrate (CITRACAL 950) 950 MG tablet Take 950 mg by mouth once daily ??? cetirizine (ZYRTEC ALLERGY) 10 MG tablet Take 10 mg by mouth as needed ??? diphenhydrAMINE (BENADRYL ALLERGY) 25 MG tablet Take by mouth every 4 hours as needed for Itching ??? fluticasone propionate (FLONASE) 50 MCG/ACT nasal spray [place] 2 sprays into each nostril once daily 16 g 11 ??? multivitamin daily tablet Take 1 tablet by mouth daily with food No current facility-administered medications for this visit. Allergies Allergen Reactions ??? Penicillins Unknown Pt unable to recall ??? Sulfa Drugs Unknown Pt unable to recalll ??? Chlorhex Gluc-Isopropyl Alcohol [Chloraprep One Step] Rash and Skin Reactions Rash with CHG @2% Jah wipes Social History Tobacco Use ??? Smoking status: Never Smoker ??? Smokeless tobacco: Never Used Substance Use Topics ??? Alcohol use: Not on file Comment: occasional ??? Drug use: No Family History Problem Relation Name Age of Onset ??? Other Mother GDB ??? Allergic Rhinitis Father ??? Allergic Rhinitis Brother ??? Allergic Rhinitis Brother Vitals BP 105/64 Pulse 80 Temp 98.2 ??F (36.8 ??C) Ht 5' 3 (1.6 m) Wt 135 lb (61.2 kg) BMI 23.91 kg/m2 Physical Exam Constitutional: Alert, No acute Distress; Well developed/ Well nourished White/ female appears stated age. Neuro: cranial nerves III-XII grossly intact CV/Pulm: Normal respirations and peripheral pulses. Eyes: PERRL, EOMI Face/Skin: normal appearance, no lesions/masses Nose: Unable to visualize posteriorly so proceded with endoscopy. See note below. Mouth and oropharynx: symmetric tongue mobility Voice: strong MusculoSkeletal: moves all extremities well Procedure: Nasal Endoscopy Anesthesia: none Detail: Rigid nasal endoscopy was performed in bilateral nasal cavity. Septum is healed appropriately with only some mild right septal deviation. Right middle meatus is open with good healing and excellent appearance of mucosa. On the left she has had interval healing of the crust and exposed bone.Open ethmoid. Maxillary and sphenoid sinuses are widely patent. Excellent mucosal appearance. Assessment and Plan Chronic sinusitis: Upon endoscopy, there is noted healing of the previously exposed bone. Overall appearance of the mucosa is ideal. Instructed to complete the prescribed topical antibiotic. Recommend using Vaseline in the nostrils prior to use of nasal saline irrigations or nasal steroids. RTC in 3 months or sooner with any issue. I, Angelique Veliz, acted as scribe for Ernesto Conley MD in documenting the service or procedure. To the best of my knowledge, I recorded what was dictated by Ernesto Conley MD. Provider: IErnesto MD have reviewed the initial documentation provided by Angelique Veliz and affirm that it is an accurate restatement of my dictated record of services. I understand and acknowledge that I am responsible for the accuracy of the documentation. Ernesto Conley MD MENT DESIGN SPECIALIST * Namita Philippe - 04/11/2020 7:47 AM CST Review of Systems Colette Lopez reports the following; Nose: sinus pain, post nasal drainage, congestion MENT DESIGN SPECIALIST documented in this encounter Procedure Notes * Ernesto Conley MD - 04/11/2020 8:49 AM CSTAssociated Order(s): PROC SINUS ENDOSCOPY Procedure(s): CA NASAL ENDOSCOPY,DX Pre-Procedure Diagnose(s): Nasal polyps; Nasal turbinate hypertrophy; Chronic pansinusitis Procedure: Nasal Endoscopy Anesthesia: none Detail: Rigid nasal endoscopy was performed in bilateral nasal cavity. Septum is healed appropriately with only some mild right septal deviation. Right middle meatus is open with good healing and excellent appearance of mucosa. On the left she has had interval healing of the crust and exposed bone.Open ethmoid. Maxillary and sphenoid sinuses are widely patent. Excellent mucosal appearance. MENT DESIGN SPECIALIST documented in this encounter Plan of Treatment Not on file documented as of this encounter Procedures Procedure Name Priority Date/Time Associated Diagnosis Comments CA NASAL ENDOSCOPY,DX Routine 04/11/2020 8:49 AM DOCUMENT DESIGN SPECIALIST Nasal polyps Nasal turbinate hypertrophy Chronic pansinusitis documented in this encounter Results * CA NASAL ENDOSCOPY,DX (04/11/2020 8:49 AM DOCUMENT DESIGN SPECIALIST) Narrative Ernesot Conley MD - 04/11/2020 8:49 AM DOCUMENT DESIGN SPECIALIST Ernesto Conley MD ? 04/11/2020 ??1:12 PM [...] Ernesto Conley MD PROCEDURE/MINOR DEEPALI GICAL ORDERABLES documented in this encounter Visit Diagnoses Diagnosis Nasal polyps- Primary Nasal turbinate hypertrophy Hypertrophy of nasal turbinates Chronic pansinusitis Other chronic sinusitis documented in this encounter Care Teams Digging Machine Operator Relationship Specialty Start Date End Date Amor Contreras MD PCP - General Internal Medicine 06/29/12 documented as of this encounter
--- OUTSIDE RECORDS SUMMARY | 2024-03-20 02:29 | XMS_ITS | Encounter Summary ---
Author Organization [facility] Jack Erwin Address [address] [place] [address] Care Team Providers Care Manager Systems Name Role Phone Amor Contreras MD Primary Care Provider [phone] Reason for Visit * Reason Onset Date Comments Tachycardia 03/04/2020 Encounter Details Date Type Department Care Team (Late st Contact Info) Description 03/04/2020 Telephone [facility] - General Surgery [address] [place], [place] [id number] Cornelio Trejo MD [address] [id number] Tachycardia Social History Tobacco Use Types Packs/Day Years Used Date Smoking Tobacco: Never Smokeless Tobacco: Never Sex and Gender Information Value Date Recorded Sex Assigned at Female 05/21/2021 12:05 PM LOGISTICS MANAGER Gender Identity Female 05/21/2021 12:05 PM LOGISTICS MANAGER Sexual Orientation Straight 05/21/2021 12 :05 PM LOGISTICS MANAGER COVID-19 Exposure Response Date Recorded In the last month, have you been in contact with someone who was confirmed or suspected to have Coronavirus / COVID-19? Unable to assess 02/12/2020 9:45 AM LOGISTICS MANAGER documented as of this encounter Miscellaneous Notes * Telephone Encounter - Cornelio Trejo MD - 03/04/2020 1:14 PM CST Received call from this patient who reports that she has noticed two episodes of tachycardia to 150, each within one hour of taking augmentin. She reports that this was recently prescribed and she isunsure if this is related to the augmentin. The tachycardia has since resolved. Denies any lightheadedness, chest pain, shortness of breath. Offered to change antibiotic to clindamycin and discontinue augmentin. Patient is in agreement. Follow-up as previously scheduled. Dusty Trejo MD Otolaryngology Head & Neck Surgery PGY-2 03/04/2020 STICS MANAGER documented in this encounter Plan of Treatment Not on file documented as of this encounter Visit Diagnoses Not on filedocumented in this encounter Care Teams Manager Systems Relationship Specialty Start Date End Date Amor Contreras MD PCP - General Internal Medicine 06/29/12 documented as of this encounter
--- OUTSIDE RECORDS SUMMARY | 2024-03-20 02:29 | XMS_ITS | Encounter Summary ---
Author Organization [facility] Address [address] [place] [address] Care Team Providers Care Flavorer Name Role Phone Amor Contreras MD Primary Care Provider [phone] Reason for Visit * Auth/Cert Specialty Diagnoses / Procedures Referred By Facundo randle Referred To Contact Diagnoses Nasal polyps Deviated nasal septum Chronic pansinusitis Nasal turbinate hypertrophy NASAL POLYPS; DEVIATED NASAL SEPTUM; CHRONIC PANSINUSITIS; TURBINATE HYPERTROPHY Procedures ENDOSCOPIC SINUS WITH NAVIGATION Referral ID Status Reason Start Date Expiration Date Visits Re quested Visits Authorized [id number] 1 1 Encounter Details Date Type Department Care Team (Late st Contact Info) Description 02/14/2020 11:17 AM TOOL PROGRAMMER Anesthesia Event [facility] [address] [place] [id number] Tristin Grijalva, DO [address] [place] [address] Tia Dela Cruz, LOCAL INTERMODAL TRUCK DRIVER-RICE MILLING SUPERVISOR [address] [place] [address] Anesthesia Record Procedure Summary Procedure Name Responsible Anesthesiologist Anesthesia Start Time Anesthesia Stop Time TOTAL ETHMOIDECTOMY; MAXILLARY ANTROSTOMY; SPHENOIDECTOMY; SEPTOPLASTY;TURBINE CTOMY (Bilateral: Nose) Tristin Grijalva DO 02/14/20 1117 02/14/20 1307 Events Date Time Event Comment 02/14/2020 0910 1117 Pt In Room 1117 An Start 1117 An Start Data 1122 Anes Timeout 1122 PT Reassessment 1122 Induction 1125 An Intubation 1130 Anes Ready 1137 Timeout Anesthesia part icipated in timeout at the time documented in the record by nursing. 1137 Time Out Anesthesia part icipated in timeout at the time documented in the record by nursing 1140 Proc Start 1243 Proc Stop 1243 An Emergence 1253 Extubation 1253 an stop data 1253 Pt out of Room 1253 ANPTO2 1307 An Stop Meds Name Total fentaNYL 100 mcg/2ml injection 100 mcg lidocaine PF 2% 100 mg propofol 200mg/20mL injection 200 mg succinylcholine 20 mg/mL injection 100 m g rocuronium 50 mg/5 mL injection 50 mg phenylephrine 100 mcg/mL injection 200 m cg ondansetron 4mg/2mL injection 4 mg dexamethasone 10 mg/ml PF injection 4 mg hydromorphone 2 mg/10mL prefilled syring e 0.5 mg sugammadex 200 mg/2mL injection 130 mg famotidine 20 mg/2mL injection 20 mg dexmedetomide bolus (no charge) 12 mcg LR (Lactated ringers) 1,200 mL * Agents Name Insp. N2O Exp. Sevoflurane Exp. N2O O2 Air Insp. Sevoflurane * Blood No blood administrations on file. Lines, Drains, and Airways Type Details Placement Removal Peripheral IV Date: 02/14/20; Time : 0910; Orientation: Left; Placed By: NS; Tolerance: Well 02/14/20 0910 by Claudette Barker RN 02/14/20 1430 by Rafael Woodruff RN ETT Date: 02/14/20; Time : 1126; Placed By: Tia Dela Cruz APRN-RICE MILLING SUPERVISOR; Vent: easy mask; Induction: Standard IV; Blade Type: Nieves; Blade Size: 2; Laryngoscopy View: Grade 1 (full cords); Tube: Endotracheal Tube; Placement: Oral; Tube Type: Cuffed-inflated; Tube Size(mm): 7 MM; Depth of Insertion: 20 CM; Measured From: teeth; Attempts: 1; Cuff Infated: Air; Verified By: Direct visualization, CO2 Monitor 02/14/20 1126 by Tia Dela Cruz APRN-LUCIA 02/14/20 1253 by Tia Dela Cruz APRN-RICE MILLING SUPERVISOR Procedural Site (Incision) 02/14/20; 1202; Nose; Bilateral sinuses packed with nexfoam and surgicel, drip pad applied. ; 02/14/20; 203902/14/20 1202 by Luly Parson RN 02/14/202039 by Rasmussen Reports, Auto Release documented in this encounter Social History Tobacco Use Types Packs/Day Years Used Date Smoking Tobacco: Never Smokeless Tobacco: Never Sex and Gender Information Value Date Recorded Sex Assigned at Female 05/21/2021 12:05 PM TOOL PROGRAMMER Gender Identity Female 05/21/2021 12:05 PM TOOL PROGRAMMER Sexual Orientation Straight 05/21/2021 12 :05 PM TOOL PROGRAMMER COVID-19 Exposure Response Date Recorded In the last month, have you been in contact with someone who was confirmed or suspected to have Coronavirus / COVID-19? Unable to assess 02/12/2020 9:45 AM TOOL PROGRAMMER documented as of this encounter Progress Notes * Tristin Grijalva DO - 02/14/2020 1:12 PM CST ANESTHESIA POSTOP EVALUATION NOTE Procedure: TOTAL ETHMOIDECTOMY; MAXILLARY ANTROSTOMY; SPHENOIDECTOMY; SEPTOPLASTY;TURBINECTOMY (Bilateral Nose) Colette Lopez is a 59 year old female Patient Vitals for the past 6 hrs: BP Temp Pulse Resp SpO2 Pain Scale/Observation 02/14/20 0910 102/72 97.4 ??F (36.3 ??C) 72 14 -- No/denies pain 02/14/20 1300 104/58 97 ??F (36.1 ??C) 73 10 100 % No/denies pain 02/14/20 1310 103/57 -- 74 (!) 8 96 % -- Anesthesia Type: general ETT Pre-op Diagnosis Codes: * Nasal polyps [J33.9] * Deviated nasal septum [J34.2] * Chronic pansinusitis [J32.4] * Nasal turbinate hypertrophy [J34.3] Mental Status: awake, alert, oriented, sufficiently recovered from acute administration of anesthesia to participate in the evaluation and neurologic status has returned to preoperative level Neuro Status: No numbness, tingling or visual disturbances Respiratory Function: natural Cardiac Function: stable Postop Pain: acceptable to the patient Postop Hydration: adequate Postop Nausea: none Assessment: no apparent anesthetic complications, patient tolerated procedure well and no evidence of recall Patient Disposition: Release from Anesthesia Care COMPLICATIONS: No complications documented. PROGRAMMER * Tristin Grijalva DO - 02/03/2020 8:12 AM CST ANESTHESIA PREOPERATIVE EVALUATION NOTE Procedure: TOTAL ETHMOIDECTOMY; MAXILLARY ANTROSTOMY; SPHENOIDECTOMY; SEPTOPLASTY;TURBINECTOMY (Bilateral Nose) Vitals: No data found. ANESTHESIA PRE-EVALUATION NOTE History of Present Illness: Colette Lopez is a 59 yo F who presents for pre-op evaluation with rhinosinusitis and nasal obstruction with significant right septal deviation and inferior turbinate hypertrophy. She is thus scheduled for the above-mentioned procedure on 02/14/2020. No pertinent PMHx, patient only takes daily calcium citrate, zyrtec and flonase. 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 EKG today normal sinus rhythm. Stress testin 2015 showed normal EF and no ischemia. Pt notes last time she underwent general anesthesia was 8 years ago for small mass on tongue evaluated by ENT, no anesthesia complications noted. Previous Airway Management: No Hx Available Physical Exam: Orientation X3 Airway/Mallampati Score: II Mouth Opening Distance: 2.5 fingerwidths Neck ROM: full TM Distance: > 3 FB Teeth: normal and caps/crowns Heart: normal - S1 S2 Lungs: clear to ausculation bilaterally Abdomen Exam: soft and normal Review of Systems: History of anesthetic complications: No Malignant Hyperthermia: No GERD: No Poor Exercise Tolerance: No Recent Chest Pain: No Shortness of Breath: No AICD/Pacemaker: No Renal Disease: No Diagnostic Tests: ECG(s) reviewed: Yes (02/03/2020: normal sinus rhythm. Normal ECG.) Stress Test(s) reviewed: Yes. Lab(s) reviewed: Yes (02/03/2020: CBC, BMP normal). Stress Test 05/18/2015: Impression: 1. No evidence of myocardial infarction or stress-induced ischemia. 2. Normal left ventricular function with ejection fraction of 67 %. Event Monitor 11/23/15: Colette Lopez underwent cardiac monitoring with a 30-day event monitor. Results are as follows: Quality of Tracings: Fair, with some baseline artifact. Rhythm: Sinus rhythm, sinus arrhythmia, occasional PACs Rates: 60-94 bpm on transmitted portions. Ectopy: Occasional PACs Symptoms: Symptoms of shortness of breath and other correlated with sinus rhythm, sinus arrhythmia and PACs. One episode shows an atrial run of 4 beats. ?? ANESTHESIA PLAN ASA Score: 2 NPO Status: Patient instructed to be NPO after midnight Anesthesia Plan: general ETT Planned Induction: intravenous Planned Postop Destination: PACU Anesthetic plan was discussed with: patient Anesthetic Plan discussion was: Consented The patient's procedural Anesthetic Plan was discussed with the RICE MILLING SUPERVISOR. BMI, Height, Weight Tobacco History Estimated body mass index is 23.91 kg/m?? as calculated from the following: Height as of 12/21/19: 1.6 m (5' 3 ). Weight as of 12/21/19: 61.2 kg (135 lb). Social History Tobacco Use Smoking Status Never Smoker Smokeless Tobacco Never Used Alcohol History Drug History Social History Substance and Sexual Activity Alcohol Use Not on file Comment: Ocassional Social History Substance and Sexual Activity Drug Use No Outpatient Medications: Inpatient Medications: No outpatient medications have been marked as taking for the 02/03/20 encounter (Hospital Encounter) with [facility] PAT ROOM 1. No current facility-administered medications for this encounter. Allergies: Allergies Allergen Reactions ??? Penicillins Unknown ??? Sulfa Drugs Unknown Relevant Problems No relevant active problems Problem List: Patient Active Problem List Diagnosis Date Noted ??? Deviated nasal septum 12/21/2019 Priority: Not Prioritized ??? Nasal polyps 12/21/2019 Priority: Not Prioritized ??? Hypertrophy of both inferior nasal turbinates 12/21/2019 Priority: Not Prioritized ??? Chronic pansinusitis 12/21/2019 Priority: Not Prioritized ??? SVT (supraventricular tachycardia) 05/17/2015 Priority: Not Prioritized ??? Osteopenia 01/14/2015 Priority: Not Prioritized Medical History: No past medical history on file. Surgical History: No past surgical history on file. Lab Results: Invalid input(s): OSMOLAITY Invalid input(s): PREGTESTUR Invalid input(s): ANIONAPART, PREALBIUMIN, [id number] PAT Evaluation summary: I. Perioperative Cardiac Risk Index Stratification based on 2014 ACC/AHA Guidelines Perioperative risk of a Major Adverse Cardiac Event (MACE). Add one point (0-6) for each positive RCRI (Revised Cardiac Risk Index) Is the surgery high-risk? no Intraperitoneal Intrathoracic Major vascular Neurosurgical spine or craniotomy History of ischemic heart disease? no Recent GA with 60 days = very high risk of MACE, requires cardiac consultation History of GA > 60 days History of positive stress test Current chest pain considered due to myocardial ischemia Use of nitrate therapy ECG with pathologic Q waves History of congestive heart failure? no Pulmonary edema, bilateral rales or S3 gallop Paroxysmal nocturnal dyspnea CXR showing pulmonary vascular congestion History of cerebrovascular disease? no Prior TIA or stroke Insulin-dependent Diabetes? no Preoperative creatinine > 2 mg/dl? no RCRI correlation with MACE (www.mdcalc.com/kdsdobi-fbpmkjf-hnie-xmkci-kub-wqlddnpjt-risk, originally validated by Caleb T. Circulation. 1999;100:9911-0360) 0 Points - 0.4% risk 1 Point - 0.9% risk 2 Points - 6.6% risk 3 or more Points - 11% risk This patient has 0 RCRI and the risk of MACE= 0.4 % If MACE < 1%, no further testing required. Proceed to surgery. Patient is at low risk of MACE. If MACE > 1% Elevated risk. Need to assess the patient's functional capacity. 4 METs = Can walk up a flight of steps or a hill or walk on level ground at 3 mph If > 4 METs. Proceed to surgery. If < 4 METs or unknown functional capacity then discuss with attending, as further workup may beindicated. (Source: 2014 ACC/AHA Guideline on Perioperative Cardiovascular Evaluation and Management of Patients Undergoing Noncardiac Surgery) II. Consults: Cardiology / medicine/ other risk stratification or consults requested: no III. CIEDs (cardiovascular implantable electronic device) Patient does not have any CIEDs IV. Anticoagulants Is patient receiving antiplatelet/ anticoagulant medications. No. Instructions per surgical team. V. Previous transfusions / blood products Previous blood transfusion? no . Most recent EKG (02/03/2020): . EKG: NSR. Normal ECG. VII. Additional testing needed within 1 month prior to DOS (if possible, else on DOS) CBC, BMP, T+S ordered 02/03/2020 Additional testing needed on DOS as below: - T+S Any additional tests ordered by the surgical team: yes - COVID Summary: Colette Lopez is a 59 year old F presenting for TOTAL ETHMOIDECTOMY; MAXILLARY ANTROSTOMY; SPHENOIDECTOMY; SEPTOPLASTY;TURBINECTOMY (Bilateral Nose). They have an ASA score of ASA 2 and 0 RCRI, which correlates with a MACE score of _0.4____%. She is medically optimized for this procedure. Labs/ tests ordered for DOS: (please list here): T+S Preoperative plan was not discussed w/ PAT attending. Plan to discuss with attending anesthesiologist on DOS. Final clearance per attending. PAT evaluation is complete including review of all pending consults, CIEDs, review of labs ordered in PAT. Magdaleno Martinez DO 02/03/2020 PROGRAMMER documented in this encounter Procedure Notes * Lanie, ERIN Castillo - 02/14/2020 11:42 AM CSTAssociated Order(s): ETT Placement Endotracheal Tube Placement: Patient Location: OR. Intubation Event Date/Time: 02/14/2020 11:26 AM Procedure: intubation (11595). Procedure Section: Sedation: under general anesthesia. Indications for Airway Management: anesthesia Procedure pretreatments used? No Induction: standard IV Patient Position: sniffing Mask Ventilation: easy. Blade Type: Nieves Blade Size: 2 Laryngoscopy View: grade 1 (full cords) Tube: endotracheal tube Placement: oral Tube type: cuff - inflated Tube Size (MM): 7 Depth of Insertion (CM): 20 Measured From: teeth Cuff Inflated With: air Number of Attempts: 1. Placement Verified By: direct visualization and CO2 monitor CXR Findings: ETT in proper place. Tube secured with: adhesive tape. Dentition unchanged? Yes Difficult Airway? No. Procedure Start Time: 02/14/2020 11:26 AM. Staff Section Anesthesia Provider: Tia Dela Cruz APRN-CRNA, Performed the procedure PROGRAMMER documented in this encounter Miscellaneous Notes * Anesthesia Transfer of Care - Tia Dela Cruz APRN-CRNA - 02/14/2020 1:06 PM CST ANESTHESIA TRANSFER OF CARE NOTE Today's Date: 02/14/2020 Date of : 1960 Patient: Colette Lopez Procedure(s): TOTAL ETHMOIDECTOMY; MAXILLARY ANTROSTOMY; SPHENOIDECTOMY; SEPTOPLASTY;TURBINECTOMY Surgeon(s): Primary: Ernesto Conley MD Resident - Assisting: Umang Winn MD Preop Diagnosis: Pre-op Diagnois: * Nasal polyps [J33.9] * Deviated nasal septum [J34.2] * Chronic pansinusitis [J32.4] * Nasal turbinate hypertrophy [J34.3] Pre-op Meds (From admission, onward) Start Stop Status Route Frequency Ordered 02/14/20 1305 acetaminophen (TYLENOL) tablet 1,000 mg -- Verified PO ONCE PRN 02/14/20 1305 02/14/20 1305 albuterol-ipratropium (DUO-NEB) nebulizer solution 3 mL -- Sent IN POST-OP MULTIPLE 02/14/20 1305 02/14/20 1305 atropine injection 0.4 mg -- Sent IV ONCE PRN 02/14/20 1305 02/14/20 1138 Dexamethasone Sod Phosphate PF injection -- Sent IV PRN 02/14/20 1138 02/14/20 1305 diphenhydrAMINE (BENADRYL) injection 25 mg -- Sent IV ONCE PRN 02/14/20 1305 02/14/20 1138 famotidine (PEPCID) injection -- Sent PRN 02/14/20 1138 02/14/20 1112 fentaNYL (PF) (SUBLIMAZE) injection -- Sent IV PRN 02/14/20 1138 02/14/20 1305 fentaNYL (PF) (SUBLIMAZE) injection 100 mcg -- Sent IV EVERY 30 MIN PRN 02/14/20 1305 02/14/20 1305 fentaNYL (PF) (SUBLIMAZE) injection 50 mcg -- Verified IV EVERY 15 MIN PRN 02/14/20 1305 02/14/20 1305 HYDROmorphone (DILAUDID) injection 0.5 mg -- Sent IV EVERY 10 MIN PRN 02/14/20 1305 02/14/20 1240 HYDROmorphone HCl-NaCl 2-0.9 MG/10ML-% SOSY -- Sent IV PRN 02/14/20 1241 02/14/20 0900 lactated ringers infusion -- Dispensed IV PRE-OP CONTINUOUS 02/14/20 0859 02/14/20 1112 lactated ringers infusion -- Sent IV CONTINUOUS PRN 02/14/20 1141 02/14/20 1315 lactated ringers infusion -- Dispensed IV CONTINUOUS 02/14/20 1305 02/14/20 1122 lidocaine hcl (PF) (XYLOCAINE MPF) 2 % injection -- Sent INFILTRATION PRN 02/14/20 1138 02/14/20 1305 naloxone (NARCAN) injection 0.04 mg -- Sent IV POST-OP MULTIPLE 02/14/20 1305 02/14/20 1138 Ondansetron HCl (ZOFRAN) injection -- Sent IV PRN 02/14/20 1138 02/14/20 1049 oxyCODONE (immediate release) (ROXICODONE) tablet 5 mg -- Verified PO EVERY 4 HOURS PRN 02/14/20 1049 02/14/20 1138 phenylephrine 100 mcg/mL injection -- Sent IV PRN 02/14/20 1138 02/14/20 1305 prochlorperazine (COMPAZINE) injection 10 mg -- Sent IV ONCE PRN 02/14/20 1305 02/14/20 1122 propofol (DIPRIVAN) injection -- Sent IV PRN 02/14/20 1138 02/14/20 1122 rocuronium (ZEMURON) injection -- Sent IV PRN 02/14/20 1138 02/14/20 1122 succinylcholine (ANECTINE) injection -- Sent IV PRN 02/14/20 1138 02/14/20 1241 sugammadex (BRIDION) injection -- Sent IV PRN 02/14/20 1241 Post-op Diagnosis: * Nasal polyps [J33.9] * Deviated nasal septum [J34.2] * Chronic pansinusitis [J32.4] * Nasal turbinate hypertrophy [J34.3] . Allergies Allergen Reactions ??? Penicillins Unknown Pt unable to recall ??? Sulfa Drugs Unknown Pt unable to recalll ??? Chlorhex Gluc-Isopropyl Alcohol [Chloraprep One Step] Rash and Skin Reactions Rash with CHG @2% Jah wipes Vitals: Patient Vitals for the past 3 hrs: BP Temp Pulse Resp SpO2 02/14/20 1300 104/58 97 ??F (36.1 ??C) 73 10 100 % Lines, Drains, and Airways Type Details Placement Removal Peripheral IV Date: 02/14/20; Time: 0910; Orientation: Left; Location: Wrist; Placed By: NS; Gauge:18 Gauge; Locals: None; Tolerance: Well 02/14/20 0910 by Claudette Barker RN ETT Date: 02/14/20; Time: 1126; Placed By: Tia Dela Cruz APRN-RICE MILLING SUPERVISOR; Vent: easy mask; Induction: Standard IV; Blade Type: Nieves; Blade Size: 2; Laryngoscopy View: Grade 1 (full cords); Tube: Endotracheal Tube; Placement: Oral; Tube Type: Cuffed-inflated; Tube Size(mm): 7 MM; Depth of Insertion: 20 CM; Measured From: teeth; Attempts: 1; Cuff Infated: Air; Verified By: Direct visualization, CO2 Monitor 02/14/20 1126 by Tia Dela Cruz APRN-CRNA 02/14/20 1253 by Tia Dela Cruz APRN-CRNA Intraprocedure I/O Totals None Patient Transfer Location: Other - please comment and PACU Transport Airway: spontaneous respirations and supplemental O2 Transport Monitoring: heart rate and continuous pulse oximetry Complications: None Handoff Given? Yes ERIN Pete PROGRAMMER documented in this encounter Plan of Treatment Not on file documented as of this encounter Procedures Procedure Name Priority Date/Time Associated Diagnosis Comments ENDOTRACHEAL TUBE NOTE Routine 02/14/2020 11:42 AM TOOL PROGRAMMER documented in this encounter Results * ETT LINE PERFORMABLE (02/14/2020 11:42 AM TOOL PROGRAMMER) Narrative Tia Dela Cruz APRN-CRNA - 02/14/2020 11:42 AM TOOL PROGRAMMER Tia Dela Cruz APRN-CRNA ? 02/14/2020 11:43 AM Endotracheal Tube Placement: ? Patient Location: OR. Intubation Event Date/Time: ??02/14/2020 11:26 AM Procedure: intubation (68121). Procedure Section: ?? Sedation: under general anesthesia. [...] Section ?? Anesthesia Provider: Tia Dela Cruz, LUCILLE-RICE MILLING SUPERVISOR, Performed the procedure Tristin Grijalva DO GENERAL ANESTHESIA ORDERABLES documented in this encounter Visit Diagnoses Not on filedocumented in this encounter Administered Medications Inactive Administered Medications - up to 3 most recent administrations Medication Order MAR Action Action Date Dose Rate Site Dexamethasone Sod Phosphate PF injection Intravenous, PRN, Starting on Fri02/14/20 at 1138, Until Fri02/14/20 at 1307, Anesthesia Intra-op $ Given 02/14/2020 11:38 AM TOOL PROGRAMMER 4 mg dexmedetomide bolus PRN, Starting on Fri02/14/20 at 1251, Until Fri02/14/20 at 1307, Anesthesia Intra-op $ Given 02/14/2020 12:51 PM TOOL PROGRAMMER 12 mcg famotidine (PEPCID) injection PRN, Starting on Fri02/14/20 at 1138, Until Fri02/14/20 at 1307, Anesthesia Intra-op $ Given 02/14/2020 11:38 AM TOOL PROGRAMMER 20 mg fentaNYL (PF) (SUBLIMAZE) injection Intravenous, PRN, Starting on Fri02/14/20 at 1112, Until Fri02/14/20 at 1307, Anesthesia Intra-op $ Given 02/14/2020 11:12 AM TOOL PROGRAMMER 100 mcg HYDROmorphone HCl-NaCl 2-0.9 MG/10ML-% SOSY Intravenous, PRN, Starting on Fri02/14/20 at 1240, Until Fri02/14/20 at 1307, Anesthesia Intra-op $ Given 02/14/2020 12:40 PM TOOL PROGRAMMER 0.5 mg lactated ringers infusion Intravenous, CONTINUOUS PRN, Starting on Fri02/14/20 at 1112, Until Fri02/14/20 at 1307, Anesthesia Intra-op $ New Bag/Syringe 02/14/2020 12:44 PM TOOL PROGRAMMER $ New Bag/Syringe 02/14/2020 11:12 AM TOOL PROGRAMMER lidocaine hcl (PF) (XYLOCAINE MPF) 2 % injection Infiltration, PRN, Starting on Fri02/14/20 at 1122, Until Fri02/14/20 at 1307, Anesthesia Intra-op $ Given 02/14/2020 11:22 AM TOOL PROGRAMMER 100 mg Ondansetron HCl (ZOFRAN) injection Intravenous, PRN, Starting on Fri02/14/20 at 1138, Until Fri02/14/20 at 1307, Anesthesia Intra-op $ Given 02/14/2020 11:38 AM TOOL PROGRAMMER 4 mg phenylephrine 100 mcg/mL injection Intravenous, PRN, Starting on Fri02/14/20 at 1138, Until Fri02/14/20 at 1307, Anesthesia Intra-op $ Given 02/14/2020 11:38 AM TOOL PROGRAMMER 200 mcg propofol (DIPRIVAN) injection Intravenous, PRN, Starting on Fri02/14/20 at 1122, Until Fri02/14/20 at 1307, Anesthesia Intra-op $ Given 02/14/2020 11:22 AM TOOL PROGRAMMER 200 mg rocuronium (ZEMURON) injection Intravenous, PRN, Starting on Fri02/14/20 at 1122, Until Fri02/14/20 at 1307, Anesthesia Intra-op $ Given 02/14/2020 11:30 AM TOOL PROGRAMMER 45 mg $ Given 02/14/2020 11:22 AM TOOL PROGRAMMER 5 mg succinylcholine (ANECTINE) injection Intravenous, PRN, Starting on Fri02/14/20 at 1122, Until Fri02/14/20 at 1307, Anesthesia Intra-op $ Given 02/14/2020 11:22 AM TOOL PROGRAMMER 100 mg sugammadex (BRIDION) injection Intravenous, PRN, Starting on Fri02/14/20 at 1241, Until Fri02/14/20 at 1307, Anesthesia Intra-op $ Given 02/14/2020 12:41 PM TOOL PROGRAMMER 130 mg documented in this encounter Care Teams Flavorer Relationship Specialty Start Date End Date Amor Contreras MD PCP - General Internal Medicine 06/29/12 documented as of this encounter
--- OUTSIDE RECORDS SUMMARY | 2024-03-20 02:29 | XMS_ITS | Encounter Summary ---
Author Organization [facility] Address [facility] [facility] [place] [address] Care Team Providers Care Erection Shop Supervisor Name Role Phone Amor Contreras MD Primary Care Provider [phone] Encounter Details Date Type Department Care Team (Late st Contact Info) Description 01/13/2020 Orders Only [facility] [address] [facility] [facility], [address] [place], [place] [id number] Ernesto Waite MD [facility] [place]PT [place] [address] Pre-op testing Social History Tobacco Use Types Packs/Day Years Used Date Smoking Tobacco: Never Smokeless Tobacco: Never Sex and Gender Information Value Date Recorded Sex Assigned at Female 05/21/2021 12:05 PM DENIAL RESOLUTION SPECIALIST Gender Identity Female 05/21/2021 12:05 PM DENIAL RESOLUTION SPECIALIST Sexual Orientation Straight 05/21/2021 12 :05 PM DENIAL RESOLUTION SPECIALIST COVID-19 Exposure Response Date Recorded In the last month, have you been in contact with someone who was confirmed or suspected to have Coronavirus / COVID-19? No / Unsure 01/12/2020 12:09 PM CDT documented as of this encounter Progress Notes * Elizabeth Delacruz LPN - 01/13/2020 11:44 AM CDT Verbal order per dr. waite per [facility] protocol documented in this encounter Plan of Treatment Not on file documented as of this encounter Results * SARS-COV-2 (COVID-19) PRE-SURGICAL/PROCEDURE (02/12/2020 9:49 AM DENIAL RESOLUTION SPECIALIST) COVID-19 PCR Not detected Not detected 02/12/2020 7:42 PM DENIAL RESOLUTION SPECIALIST [facility] MICROBIOLOGY Microbiology SPECIMEN FROM NASOPHARYNGEAL STRUCTURE / Unknown Collection / Unknown 02/12/2020 9:49 AM DENIAL RESOLUTION SPECIALIST 02/12/2020 9:49 AM DENIAL RESOLUTION SPECIALIST Narrative [facility] - 02/12/2020 7:42 PM DENIAL RESOLUTION SPECIALIST This nucleic acid amplification assay performance was validated by [facility]. This test has [...] EUA assay are available upon request. Ernesto Waite MD LAB - MICROBIOLOGY ORDERABLES [facility]CRO[facility]OLOG[facility] [address] [place] [address], [facility] [phone] documented in this encounter Visit Diagnoses Diagnosis Pre-op testing- Primary Preoperative examination, unspecified documented in this encounter Care Teams Erection Shop Supervisor Relationship Specialty Start Date End Date Amor Contreras MD PCP - General Internal Medicine 06/29/12 documented as of this encounter
--- OUTSIDE RECORDS SUMMARY | 2024-03-20 02:29 | XMS_ITS | Encounter Summary ---
Author Organization [facility] Address [address] [facility] [place] [address] Care Team Providers Care Plant Anatomy Teacher Name Role Phone Amor Contreras MD Primary Care Provider [phone] Reason for Visit * Auth/Cert Specialty Diagnoses / Procedures Referred By Facundo t Referred To Contact Diagnoses Nasal polyps Deviated nasal septum Chronic pansinusitis Nasal turbinate hypertrophy NASAL POLYPS; DEVIATED NASAL SEPTUM; CHRONIC PANSINUSITIS; TURBINATE HYPERTROPHY Procedures ENDOSCOPIC SINUS WITH NAVIGATION Referral ID Status Reason Start Date Expiration Date Visits Re quested Visits Authorized [id number] 1 1 Encounter Details Date Type Department Care Team (Late st Contact Info) Description 02/14/2020 10:35 AM [facility]ATORY CARE - 02/14/2020 1:40 PM ATTENDING AMBULATORY CARE Surgery [facility] [address] [place] [id number] Ernesto Conley MD [address] [place] [address] TOTAL ETHMOIDECTOMY; MAXILLARY ANTROSTOMY; SPHENOIDECTOMY; SEPTOPLASTY;TURBINECTO MY Surgery Details Date/Time Status Location OR Service Patient Class Case Class Case Type Trauma Case? 02/14/2020 10:35 AM Posted [facility] OR OR 10 ENT Surgery Day Care Panel 1 Procedure LRB Anes Op Region Wound Class Comments TOTAL ETHMOIDECTOMY; MAXILLARY ANTROSTOMY; SPHENOIDECTOMY; SEPTOPLASTY;TURBINECTOMY Bilateral General Nose Clean Contaminat ed Surgeon Surgeon Role Service Panel Ernesto Conley MD Primary ENT 1 Umang Winn MD Resident - Assisting ENT 1 Special Needs Supine, STORZ VIDEO TOWER, NEW FUSION STEALTH, MICRODEBRIDER CONSOLE.DS 02/10 documented in this encounter Social History Tobacco Use Types Packs/Day Years Used Date Smoking Tobacco: Never Smokeless Tobacco: Never Sex and Gender Information Value Date Recorded Sex Assigned at Female 05/21/2021 12:05 PM ATTENDING AMBULATORY CARE Gender Identity Female 05/21/2021 12:05 PM ATTENDING AMBULATORY CARE Sexual Orientation Straight 05/21/2021 12 :05 PM ATTENDING AMBULATORY CARE COVID-19 Exposure Response Date Recorded In the last month, have you been in contact with someone who was confirmed or suspected to have Coronavirus / COVID-19? Unable to assess 02/12/2020 9:45 AM ATTENDING AMBULATORY CARE documented as of this encounter Last Filed Vital Signs Vital Sign Reading Time Taken Comments Blood Pressure 102/65 02/14/2020 1:20 PM [facility]ATORY C[facility] Pulse 63 02/14/2020 1:40 PM [facility] C[facility] Temperature 36.1 ??C (97 ??F) 02/14/2020 1:00 PM ATTENDING AMBULATORY C[facility] Respiratory Rate 16 02/14/2020 1:40 PM [facility]ENDING [facility]BULATORY C[facility] Oxygen Saturation 92% 02/14/2020 1:40 PM [facility] Inhaled Oxygen Concentration - - Weight 64.9 kg (143 lb) 02/14/2020 9:10 AM [facility]ENDING [facility]BULATORY C[facility] Height 160 cm (5' 3 ) 02/14/2020 9:10 AM ATTENDING AMBULATORY CARE Body Mass Index 25.33 02/14/2020 9:10 AM ATTENDING AMBULATORY CARE documented in this encounter Discharge Instructions * Discharge Instructions* Umang Winn MD - 02/14/2020 12:55 PM ATTENDING AMBULATORY CARE Otolaryngology Discharge Instructions Disposition: Home Diet: Regular [...] Follow up: 1 week Clinic contact information: [phone] Other Instructions: Should you experience any of these symptoms... -Fever over 102 degrees. -Persistent pain, nausea, or vomiting. -Persistent bleeding. -Shortness of breath. -Significant redness or drainage from your incision. -Any other questions or concerns. ...During business hours call: the number listed above. ...On nights or weekends call: [phone], ask for the ENT resident contact center analyst. General Postsurgical Instructions You may expect to [...] injury to your surgical site. Only take [id number] or prescription medicines for pain, discomfort, or [...] Document Re-Released: 05/28/2010 ExitCare?? Patient Information ??2011 [employer]. [facility] documented in this encounter Medications at Time [...] fluticasone propionate (FLONASE) 50 MCG/ACT nasal spray [place] 2 sprays into each nostril once daily [...] fluticasone propionate (FLONASE) 50 MCG/ACT nasal spray [place] 2 sprays into each nostril once daily [...] me. Ernesto Conley MD 02/14/2020 10:49 AM [facility] documented in this encounter OR Notes * Operative - Umang Winn MD - 02/14/2020 11:40 AM CST PROCEDURE DATE: 02/14/2020 PREOPERATIVE DIAGNOSIS: Bilateral pansinusitis with polyposis POSTOPERATIVE DIAGNOSIS: Same PROCEDURE PERFORMED: 1. Bilateral functional endoscopic sinus surgery: Bilateral total ethmoidectomies, Bilateral maxillary antrostomies with tissue removal, Bilateral sphenoidotomies with tissue removal 2. Image guidance for extracranial procedure. SURGEON: Ernesto Conley MD QUALITY LEAD: Umang Winn MD ANESTHESIA: General endotracheal LOCAL [...] fashion. The ENT navigation system Fusion by [employer] was calibrated to an accuracy of within [...] in the outpatient clinic. Umang Winn MD [facility] documented in this encounter Plan of Treatment Not on file documented as of this encounter Procedures Procedure Name Priority Date/Time Associated Diagnosis Comments CARDIAC EKG ORDER 02/16/2020 1:02 AM [facility]ORY [facility] PATHOLOGY TISSUE Routine 02/14/2020 11:5 4 AM [facility]ING [facility]BULATORY C[facility] Nasal polyps Deviated nasal septum Chronic pansinusitis Nasal turbinate hypertrophy GA NASAL SCOPE,BX/RMV POLYP/DEBRID 02/14/2020 11:40 AM ATTENDING AMBULATORY CARE Nasal polyps Deviated nasal septum Chronic pansinusitis Nasal turbinate hypertrophy Special Needs Supine, STORZ VIDEO TOWER, NEW FUSION STEALTH, MICRODEBRIDER CONSOLE.DS 02/10 documented in this encounter Results * CARDIAC EKG ORDER (02/16/2020 1:02 AM ATTENDING [facility]BULATORY C[facility]) Narrative 02/16/2020 1:02 AM ATTENDING AMBULATORY CARE Ordered by an unspecified provider. Scanned Document CARDIAC SERVICES ORD ERABLES * PATHOLOGY TISSUE (02/14/2020 11:54 AM ATTENDING AMBULATORY CARE) Case Report Surgical Pathology Report ? Case: [id number] ? Authorizing Provider: ??Ernesto Conley MD ? Collected: ? 02/14/2020 11:54 AM ? Ordering Location: ? [facility] ?Received: ?02/14/2020 03:02 PM ? Pathologist: ? Triston Adam MD ? Specimen: ?Sinus, Bilateral sinus contents - PERM ? 02/15/2020 4:21 PM ATTENDING AMBULATORY CARE [facility] Final Diagnosis Bilateral sinus contents, evacuation (A): - Respiratory mucosa with chronic inflammation - 50 eosinophils per high power field 02/15/2020 4:21 PM [facility] Microscopic Description and Comment Performed. 02/15/2020 4:21 PM [facility] Clinical History The patient is 59 year old female with nasal polyps and nasal turbinate hypertrophy who underwent total ethmoidectomy, maxillary antrostomy, sphenoidectomy and septoplasty. 02/15/2020 4:21 PM [facility] Gross Description The requisition and specimen is identified with the patient's name, Colette Lopez. Received in formalin in, specimen A are [id number] cartilage and soft tissue fragments measuring 2.8 x 2.5 x 1.0 cm in aggregate. The specimen is entirely submitted in cassette [id number]. IY 02/15/2020 4:21 PM [facility] Disclaimer The performance characteristics of all immunohistochemical and indirect immunofluorescence stains (if any) cited in this report were determined by the Histopathology Laboratory of [facility]. Some of these tests were developed by [...] the attending (teaching) pathologist. 02/15/2020 4:21 PM [facility] Embedded Images 02/15/2020 4:21 PM [facility] Biopsy, Excision SINUS / Unknown 02/14/20 20 11:54 AM ATTENDING AMBULATORY CARE 02/14/2020 3:02 PM [facility] Comment:Pre-op diagnosis: NASAL POLYPS; DEVIATED NASAL SEPTUM; CHRONIC PANSINUSITIS; TURBINATE HYPERTROPHY Ernesto Conley MD LAB - PATHOLOGY/CYT OLOGY ORDERABLES [facility] [address] [phone] documented in this encounter Visit Diagnoses Diagnosis Preop examination Preoperative examination, unspecified Nasal polyps Deviated nasal septum Chronic pansinusitis Other chronic sinusitis Nasal turbinate hypertrophy Hypertrophy of nasal turbinates Nasal polyps Deviated nasal septum Chronic pansinusitis [...] hypoventilation., PACU $ Given 02/14/2020 1:35 PM [facility] 50 mcg lactated ringers infusion at 20 mL/hr, Intravenous, PRE-OP CONTINUOUS, Starting on Fri02/14/20 at 0900, Until Fri02/14/20 at 1540, Pre-op $ New Bag/Syringe 02/14/2020 9:15 AM [facility] 1,000 mL 20 mL/hr Left Wrist lidocaine 1% - EPINEPHrine 1:100,000 injection PRN, Starting on Fri02/14/20 at 1135, Until Fri02/14/20 at 1258, Intra-op $ Given 02/14/2020 11:35 AM [facility] 7 mL Operative Site oxyCODONE (immediate release) (ROXICODONE) tablet 5 mg 5 mg, Oral, EVERY 4 HOURS PRN, Moderate Pain, Starting on Fri02/14/20 at 1049, Until Fri02/14/20 at 1540 oxymetazoline (AFRIN) 0.05 % nasal spray PRN, Starting on Fri02/14/20 at 1130, Until Fri02/14/20 at 1258, Intra-op $ Given 02/14/2020 11:30 AM [facility] 1 bottles documented in this encounter Active and Recently Administered Medications Times are shown in [facility]. Scheduled Medication Order 02/12/2020 02/13/2020 02/14/2020 albuterol-ipratropium [...] PACU documented in this encounter Care Teams Plant Anatomy Teacher Relationship Specialty Start Date End Date Amor Contreras MD PCP - General Internal Medicine 06/29/12 documented as of this encounter
--- OUTSIDE RECORDS SUMMARY | 2024-03-20 02:29 | XMS_ITS | Encounter Summary ---
Author Organization [facility] Address [facility] [facility] [place] [address] Care Team Providers Care Experimental Machining Lab Manager Name Role Phone Amor Contreras MD Primary Care Provider [phone] Reason for Visit * Reason Onset Date Comments Appointment 06/28/2020 Encounter Details Date Type Department Care Team (Late st Contact Info) Description 06/28/2020 Telephone [facility] [address], [address] [place] [address] Selina Capone Appointment Social History Tobacco Use Types Packs/Day Years Used Date Smoking Tobacco: Never Smokeless Tobacco: Never Sex and Gender Information Value Date Recorded Sex Assigned at Female 05/21/2021 12:05 PM TIRE REPAIR MECHANIC Gender Identity Female 05/21/2021 12:05 PM TIRE REPAIR MECHANIC Sexual Orientation Straight 05/21/2021 12 :05 PM TIRE REPAIR MECHANIC documented as of this encounter Miscellaneous Notes * Telephone Encounter - Selina Capone - 06/28/2020 10:52 AM CDT Called to schedule follow up appointment in March with Dr Conley. Left voice message documented in this encounter Plan of Treatment Not on file documented as of this encounter Visit Diagnoses Not on filedocumented in this encounter Care Teams Experimental Machining Lab Manager Relationship Specialty Start Date End Date Amor Contreras MD PCP - General Internal Medicine 06/29/12 documented as of this encounter
--- OUTSIDE RECORDS SUMMARY | 2024-03-20 02:29 | XMS_ITS | Encounter Summary ---
Author Organization [facility] Address [facility] [facility] [place] [address] Care Team Providers Care Legal Activity Adjudicator Name Role Phone Amor Contreras MD Primary Care Provider [phone] Reason for Visit * Reason Comments Sinus Problem 1st pos sinus Encounter Details Date Type Department Care Team (Late st Contact Info) Description 02/22/2020 9:45 AM HOP TRAINER Office Visit [facility] [address] [facility], [address] [place] [address] Ernesto Conley MD [facility] [place] [address] Chronic pansinusitis (Primary Dx); Nasal polyps; Deviated nasal septum; Chronic left-sided headache Social History Tobacco Use Types Packs/Day Years Used Date Smoking Tobacco: Never Smokeless Tobacco: Never Sex and Gender Information Value Date Recorded Sex Assigned at Female 05/21/2021 12:05 PM HOP TRAINER Gender Identity Female 05/21/2021 12:05 PM HOP TRAINER Sexual Orientation Straight 05/21/2021 12 :05 PM HOP TRAINER COVID-19 Exposure Response Date Recorded In the last month, have you been in contact with someone who was confirmed or suspected to have Coronavirus / COVID-19? Unable to assess 02/12/2020 9:45 AM HOP TRAINER documented as of this encounter Last Filed Vital Signs Vital Sign Reading Time Taken Comments Blood Pressure 103/64 02/22/2020 9:46 AM HOP TRAINER Pulse 75 02/22/2020 9:46 AM HOP TRAINER Temperature 36.9 ??C (98.5 ??F) 02/22/2020 9:46 AM CS T Respiratory Rate - - Oxygen Saturation - - Inhaled Oxygen Concentration - - Weight 61.2 kg (135 lb) 02/22/2020 9:46 AM HOP TRAINER Height 160 cm (5' 3 ) 02/22/2020 9:46 AM HOP TRAINER Body Mass Index 23.91 02/22/2020 9:46 AM HOP TRAINER documented in this encounter Patient Instructions * Patient Instructions* Namita Philippe Joni - 02/22/2020 9:45 AM HOP TRAINER Thank you for visiting [facility] Otolaryng[facility] - Head & Neck Surgery. [...] an appointment, please call our office at [phone] Friday through Friday from 8:30 am to4:30 pm. You can also request a routine appointment through your [employer] account. ??? Prescription Refills Contact your pharmacy [...] the medical exchange at and ask the mechanical operator to page the ENT physician reimbursement liaison. *Caller ID blocking service will need to be turned off for your call to be returned. We also specialize in Hearing Aids, Allergy testing, swallowing disorders, voice problems, cancer diagnosis, and so much more. Visit our website at [email or web address] for information about our practice and an interactive health encyclopedia. TRAINER documented in this encounter Progress Notes * Namita Philippe - 02/22/2020 9:45 AM CST Review of Systems Colette Lopez reports the following; Nose: sinus pain, post nasal drainage, congestion TRAINER * Ernesto Conley MD - 02/22/2020 9:45 AM CST History of Present Illness 59 year old with a h/o nasal obstruction. Presented initially after obtaining an MRI and the request of her PCP due to left sided headaches. He wanted her to start Lyrica, but the patient refused. States that she takes Excedrin for her headaches. This controls her headaches overall. At that visit she reported that she has right sided nasalobstruction. Has tried nasal sprays, and takes Zyrtec daily. Underwent allergy testing with [facility]. Did not proceed with immunotherapy. Both of her brothers and her father have significant sinonasal issues and has undergone surgery. No previous CT scan of her sinuses. Her nasal obstruction is severe. Only some minimal improvement on medications. Denies sinonasal surgery. Referred to me after the MRI as there was noted to be sinusitis.treated her with medications and obtained a positive posttreatment CT scan. She is now s/p bilateral total ethmoidectomy, maxillary antrostomy with tissue removal, sphenoidotomies with tissue removal on 02/14/2020. She is here today with reports of having a rough 3/4 post operative days, but is now doing well. She has been compliant with use of nasal saline irrigations. Review of Systems A 14 point review of systems was obtained and negative except for: Nose: congestion Past Medical History: Diagnosis Date ??? [...] fluticasone propionate (FLONASE) 50 MCG/ACT nasal spray [place] 2 sprays into each nostril once daily [...] Brother ??? Allergic Rhinitis Brother Vitals BP 103/64 Pulse 75 Temp 98.5 ??F (36.9 ??C) Ht 5' 3 (1.6 m) Wt [...] moves all extremities well Procedure: Nasal Endoscopy With Debridement Anesthesia: Bilateral Nasal Cavity sprayed with Lidocaine and Phenylephrine Detail: Rigid nasal endoscopy was performed in bilateral nasal cavity. Removed crusting and thick secretions with suctions. Septum is mildly deviated to the right. Bilaterally I'm able to suction outthe middle meatus using curved and straight suctions. I passed the curved suction into the maxillary sinuses on both sides. Good early postoperative appearance. Patient reported significant improvement in airway and facial pressure after debridement. Assessment and Plan Rhinosinusitis: Upon endoscopy, she shows good early healing. Instructed to continue nasal saline irrigations daily and begin using Flonase daily. May begin to resume all normal activities. RTC in 3 or 4 weeks or sooner with any issue. IAngelique, acted as scribe for Ernesto Conley MD in documenting the service or procedure. To the best of my knowledge, I recorded what was dictated by Ernesto Conley MD. I, Ernesto Conley MD have reviewed the initial documentation provided by Angelique Veliz and affirm that it is an accurate restatement of my dictated record of services. I understand and acknowledge that I am responsible for the accuracy of the documentation. Ernesto Conley MD TRAINER documented in this encounter Procedure Notes * Ernesto Conley MD - 02/22/2020 1:17 PM CSTAssociated Order(s): PROC SINUS ENDOSCOPY Procedure(s): [place] ENDO NASAL SINUS BX POLYP DEBRID VALERIA Pre-Procedure Diagnose(s): Chronic pansinusitis; Nasal polyps; Deviated nasal septum; Chronic left-sided headache Procedure: Nasal Endoscopy With Debridement Anesthesia: Bilateral Nasal Cavity sprayed with Lidocaine and Phenylephrine Detail: Rigid nasal endoscopy was performed in bilateral nasal cavity. Removed crusting and thick secretions with suctions. Septum is mildly deviated to the right. Bilaterally I'm able to suction outthe middle meatus using curved and straight suctions. I passed the curved suction into the maxillary sinuses on both sides. Good early postoperative appearance. Patient reported significant improvement in airway and facial pressure after debridement. TRAINER documented in this encounter Plan of Treatment Not on file documented as of this encounter Procedures Procedure Name Priority Date/Time Associated Diagnosis Comments [place] ENDO NASAL SINUS BX POLYP DEBRID VALERIA Routine 02/22/2020 1:17 PM HOP TRAINER Chronic pansinusitis Nasal polyps Deviated nasal septum Chronic left-sided headache documented in this encounter Results * [place] ENDO NASAL SINUS BX POLYP DEBRID VALERIA (02/22/2020 1:17 PM HOP TRAINER) Narrative Ernesto Conley MD - 02/22/2020 1:17 PM HOP TRAINER Ernesto Conley MD ? 02/22/2020 ??1:31 PM [...] documented in this encounter Visit Diagnoses Diagnosis Chronic pansinusitis- Primary Other chronic sinusitis Nasal polyps Deviated nasal septum Chronic left-sided headache documented in this encounter Care Teams Legal Activity Adjudicator Relationship Specialty Start Date End Date Amor Contreras MD PCP - General Internal Medicine 06/29/12 documented as of this encounter
--- OUTSIDE RECORDS SUMMARY | 2024-03-20 02:29 | XMS_ITS | Encounter Summary ---
Author Organization [facility] Address [facility] [place] [address] Care Team Providers Care Coconut Jelly Roller Name Role Phone Amor Contreras MD Primary Care Provider [phone] Reason for Visit * Reason Comments Eye Problem Encounter Details Date Type Department Care Team (Late st Contact Info) Description 03/08/2020 1:45 PM ERECTOR OPERATOR Office Visit [facility] [address] [place] [address], [place] [id number] Ernesto Conley MD [address] [place] [address] [place] [address] Chronic pansinusitis (Primary Dx); Nasal crusting Social History Tobacco Use Types Packs/Day Years Used Date Smoking Tobacco: Never Smokeless Tobacco: Never Sex and Gender Information Value Date Recorded Sex Assigned at Female 05/21/2021 12:05 PM ERECTOR OPERATOR Gender Identity Female 05/21/2021 12:05 PM ERECTOR OPERATOR Sexual Orientation Straight 05/21/2021 12 :05 PM ERECTOR OPERATOR COVID-19 Exposure Response Date Recorded In the last month, have you been in contact with someone who was confirmed or suspected to have Coronavirus / COVID-19? Unable to assess 02/12/2020 9:45 AM ERECTOR OPERATOR documented as of this encounter Last Filed Vital Signs Vital Sign Reading Time Taken Comments Blood Pressure 100/62 03/08/2020 1:31 PM ERECTOR OPERATOR Pulse 103 03/08/2020 1:31 PM ERECTOR OPERATOR Temperature - - Respiratory Rate - - Oxygen Saturation - - Inhaled Oxygen Concentration - - Weight 61.2 kg (135 lb) 03/08/2020 1:31 PM ERECTOR OPERATOR Height 160 cm (5' 3 ) 03/08/2020 1:31 PM ERECTOR OPERATOR Body Mass Index 23.91 03/08/2020 1:31 PM ERECTOR OPERATOR documented in this encounter Patient Instructions * Patient Instructions* Ventura Champagnelenyyessica - 03/08/2020 1:31 PM ERECTOR OPERATOR daThank you for visiting [facility] Ot[facility] - [facility] Neck Surgery. We [...] an appointment, please call our office at [phone] Friday through Friday from 8:30 am to4:30 pm. You can also request a routine appointment through your [employer] account. ??? Prescription Refills Contact your pharmacy [...] the nearest emergency room. For urgent medical calls which cannot wait until the office opens, please call the medical exchangeat and ask the platen press operator apprentice to page the ENT physician instructor physical education. *Caller ID blocking service will need to be turned off for your call to be returned. We also specialize in Hearing Aids, Allergy testing, swallowing disorders, voice problems, cancer diagnosis, and so much more. Visit our website at [email or web address] for information about our practice and an interactive health encyclopedia. TOR OPERATOR documented in this encounter Progress Notes * Julio Richardson MD - 03/08/2020 1:39 PM CST History of Present Illness: 59 year old with a h/o nasal [...] removal, sphenoidotomies with tissue removal on 02/14/2020. Patient was last seen on 02/22/20 and was doing well. Today patient reports that she was having severe headache last week especially with left eye movement. She was started on Augmentin at that time. Over the weekend, she had a palpitations with SVT andwas changed to clindamycin. Continued to have SVT issues over the weekend that have now resolved. Headache and eye pain are significantly improved but she is taking tylenol. Denies vision changes. Had eye watering with eye movement but no vision changes (poor left sided vision at baseline). No fevers. Review of Systems: A 11-organ review of systems was performed and was negative except for Nose: sinus headaches, not as frequent post taking predisone Past Medical History: Diagnosis Date ??? Chronic pansinusitis ??? Deviated nasal septum ??? Nasal polyps ??? Snoring PSH: has a past surgical history that includes knee arthroscopy (Left, 2009); ent surgery (2011); and sinus surgery (Bilateral, 02/14/2020). Current Outpatient Medications Medication Sig Dispense Refill ??? calcium citrate (CITRACAL 950) 950 MG tablet Take 950 mg by mouth once daily ??? cetirizine (ZYRTEC ALLERGY) 10 MG tablet Take 10 mg by mouth as needed ??? clindamycin (CLEOCIN) 300 MG capsule Take 1 capsule by mouth every 8 hours for 7 days 21 capsule 0 ??? diphenhydrAMINE (BENADRYL ALLERGY) 25 MG tablet Take by mouth every 4 hours as needed for Itching ??? fluticasone propionate (FLONASE) 50 MCG/ACT nasal spray [place] 2 sprays into each nostril once daily 16 g 11 ??? multivitamin daily tablet Take 1 tablet by mouth daily with food No current facility-administered medications for this visit. Allergies Penicillins, Sulfa drugs, and Chlorhex gluc-isopropyl alcohol [chloraprep one step] Social History Tobacco Use ??? Smoking status: Never Smoker ??? Smokeless tobacco: Never Used Substance Use Topics ??? Alcohol use: Not on file Comment: occasional ??? Drug use: No Family History Problem Relation Name Age of Onset ??? Other Mother GDB ??? Allergic Rhinitis Father ??? Allergic Rhinitis Brother ??? Allergic Rhinitis Brother Physical Exam: Constitutional: Alert, No acute Distress; Well developed/well nourished Neuro:cranial nerves III-XII grossly intact CV/Pulm: Normal respirations and peripheral pulses. Eyes: PERRL, EOMI Face/Skin: normal appearance, no lesions/masses Ears: Right: Normal external Auditory canal Left: Normal external Auditory canal Nose: patent bilaterally, unable to visualize posteriorly and thus he proceeded with endoscopy, seeprocedure note below Mouth and oropharynx: symmetric tongue mobility Voice: strong MusculoSkeletal: moves all extremities well Procedure: Nasal Endoscopy With Debridement on the left Anesthesia: Bilateral Nasal Cavity sprayed with Lidocaine and Phenylephrine Detail: Rigid nasal endoscopy was performed in bilateral nasal cavity. Septum is healing appropriately with only some mild right septal deviation. Right middle meatus is open with good healing over the exposed Of the lamina papyracea. Excellent appearance of mucosa. On the left she has a large crust that is on the left lamina propria should. We debrided this and noted some exposed bone in the posterior lamina. Unable to visualize within the left frontal. Maxillary and sphenoid sinuses are widely patent. Culture taken. CT: no new imaging Assessment and Plan: Chronic sinusitis: Patient had significant left eyes symptoms. This has improved on her current antibiotics but she does have some exposed bone on that side. There is likely the source of her discomfort. - cultured obtained - complete clindamycin course - will add topical antibiotics in irrigations pending culture and sensitivities if not resolved - continue nasal irrigations - continue flonase - follow up with Dr. Conley in 6 weeks Julio Richardson MD Otolaryngology - Head & Neck Surgery 03/08/2020 2:38 PM I have seen and examined the patient with the resident and I agree with the findings and plan of care as documented by the resident. Note above edited by me. Additionally, the above note reflects a procedure that I performed. The resident surgeon assisted with the procedure and/or the procedural note. I, Ernesto Conley MD, was present for, and participated in, the entirety of the procedure. Ernesto Conley MD 03/08/2020 2:39 PM TOR OPERATOR * Gonzalo Champagne - 03/08/2020 1:35 PM CST Review of Systems Colette reports the following:Nose: sinus headaches, not as frequent post taking predisone TOR OPERATOR documented in this encounter Procedure Notes * Ernesto Conley MD - 03/08/2020 2:37 PM CSTAssociated Order(s): PROC SINUS ENDOSCOPY Procedure(s): NH ENDO NASAL SINUS BX POLYP DEBRID LT SIDE Pre-Procedure Diagnose(s): Chronic pansinusitis; Nasal crusting Procedure: Nasal Endoscopy With Debridement on the left Anesthesia: Bilateral Nasal Cavity sprayed with Lidocaine and Phenylephrine Detail: Rigid nasal endoscopy was performed in bilateral nasal cavity. Septum is healing appropriately with only some mild right septal deviation. Right middle meatus is open with good healing over the exposed Of the lamina papyracea. Excellent appearance of mucosa. On the left she has a large crust that is on the left lamina propria should. We debrided this and noted some exposed bone in the posterior lamina. Unable to visualize within the left frontal. Maxillary and sphenoid sinuses are widely patent. Culture taken. TOR OPERATOR documented in this encounter Plan of Treatment Not on file documented as of this encounter Procedures Procedure Name Priority Date/Time Associated Diagnosis Comments NH ENDO NASAL SINUS BX POLYP DEBRID LT SIDE Routine 03/08/2020 2:37 PM ERECTOR OPERATOR Chronic pansinusitis Nasal crusting documented in this encounter Results * NH ENDO NASAL SINUS BX POLYP DEBRID LT SIDE (03/08/2020 2:37 PM ERECTOR OPERATOR) Narrative Ernesto Conley MD - 03/08/2020 2:37 PM ERECTOR OPERATOR Ernesto Conley MD ? 03/08/2020 ??2:38 PM [...] (ABNORMAL) CULTURE RESPIRATORY+GRAM STAIN (03/08/2020 2:15 PM ERECTOR OPERATOR) Culture Heavy Staphylococcus aureus(A) LUISA 03/12/2020 1:31 PM ERECTOR OPERATOR [facility] Comment:Staphylococcus aureu s methicillin-susceptible (MSSA) detected by penicillin binding protein immunoassay. Culture Rare Stenotrophomonas maltophilia(A) LUISA 03/12/2020 1:31 PM ERECTOR OPERATOR [facility] Gram Stain Light Polymorphonuclear cells 03/12/2020 1:31 PM ERECTOR OPERATOR [facility] Gram Stain Rare Gram-positive cocci 03/12/2020 1:31 PM ERECTOR OPERATOR [facility] Microbiology SINUS / Unknown Collection / Unknown 03/08/2020 2:15 PM ERECTOR OPERATOR 03/08/2020 6:16 PM ERECTOR OPERATOR Narrative Organism Antibiotic Method Susceptibility Staphylococcus aureus [...] Ernesto Conley MD LAB - MICROBIOLOGY ORDERABLES [facility] [address] [place], [address] [phone] documented in this encounter Visit Diagnoses Diagnosis Chronic pansinusitis- Primary Other chronic sinusitis Nasal crusting Other diseases of nasal cavity and sinuses documented in this encounter Care Teams Coconut Jelly Roller Relationship Specialty Start Date End Date Amor Contreras MD PCP - General Internal Medicine 06/29/12 documented as of this encounter
--- OUTSIDE RECORDS SUMMARY | 2024-03-20 02:29 | XMS_ITS | Encounter Summary ---
Author Organization [facility] Address [address] [facility] [place] [address] Care Team Providers Care Automatic Lump Making Machine Tender Name Role Phone Amor Contreras MD Primary Care Provider [phone] Encounter Details Date Type Department Care Team (Latest Contact Info) Description 03/08/2020 6:15 PM FLIGHT CONTROL MANAGER - 03/08/2020 11:59 PM FLIGHT CONTROL MANAGER Hospital Encounter [facility] [address] [place] [id number] Ernesto Conley MD [address] [place] [address] Discharge Disposition: Home or Self Care Social History Tobacco Use Types Packs/Day Years Used Date Smoking Tobacco: Never Smokeless Tobacco: Never Sex and Gender Information Value Date Recorded Sex Assigned at Female 05/21/2021 12:05 PM FLIGHT CONTROL MANAGER Gender Identity Female 05/21/2021 12:05 PM FLIGHT CONTROL MANAGER Sexual Orientation Straight 05/21/2021 12 :05 PM FLIGHT CONTROL MANAGER COVID-19 Exposure Response Date Recorded In the last month, have you been in contact with someone who was confirmed or suspected to have Coronavirus / COVID-19? Unable to assess 03/08/2020 6:14 PM FLIGHT CONTROL MANAGER documented as of this encounter Medications at Time of Discharge Medication Sig Dispensed Refills Start Date End Date calcium citrate (CITRACAL 950) 950 MG tablet Take 950 mg by mouth once daily cetirizine (ZYRTEC ALLERGY) 10 MG tablet Take 10 mg by mouth as needed fluticasone propionate (FLONASE) 50 MCG/ACT nasal spray [place] 2 sprays into each nostril once daily 16 g 11 02/22/2020 multivitamin daily tablet Take 1 tablet by mouth daily with food clindamycin (CLEOCIN) 300 MG capsule Take 1 capsule by mouth every 8 hours for 7 days 21 capsule 03/04/2020 03/11/2020 diphenhydrAMINE (BENADRYL ALLERGY) 25 MG tablet Take by mouth every 4 hours as needed for Itching 06/27/2020 documented as of this encounter Plan of Treatment Not on file documented as of this encounter Procedures Procedure Name Priority Date/Time Associated Diagnosis Comments CULTURE RESPIRATORY+GRAM STAIN (STL) Routine 03/08/2020 2:15 PM FLIGHT CONTROL MANAGER Chronic pansinusitis Nasal crusting documented in this encounter Results * (ABNORMAL) CULTURE RESPIRATORY+GRAM STAIN (03/08/2020 2:15 PM FLIGHT CONTROL MANAGER) Culture Heavy Staphylococcus aureus(A) LUISA 03/12/2020 1:31 PM FLIGHT CONTROL MANAGER [facility] Comment:Staphylococcus aureu s methicillin-susceptible (MSSA) detected by penicillin binding protein immunoassay. Culture Rare Stenotrophomonas maltophilia(A) LUISA 03/12/2020 1:31 PM FLIGHT CONTROL MANAGER [facility] Gram Stain Light Polymorphonuclear cells 03/12/2020 1:31 PM FLIGHT CONTROL MANAGER [facility] Gram Stain Rare Gram-positive cocci 03/12/2020 1:31 PM FLIGHT CONTROL MANAGER [facility] Microbiology SINUS / Unknown Collection / Unknown 03/08/2020 2:15 PM FLIGHT CONTROL MANAGER 03/08/2020 6:16 PM FLIGHT CONTROL MANAGER Narrative Organism Antibiotic Method Susceptibility Staphylococcus aureus [...] Ernesto Conley MD LAB - MICROBIOLOGY ORDERABLES [facility] [address] [place] [address] [phone] documented in this encounter Visit Diagnoses Diagnosis Chronic pansinusitis Other chronic sinusitis Nasal crusting Other diseases of nasal cavity and sinuses documented in this encounter Care Teams Automatic Lump Making Machine Tender Relationship Specialty Start Date End Date Amor Contreras MD PCP - General Internal Medicine 06/29/12 documented as of this encounter
--- OUTSIDE RECORDS SUMMARY | 2024-03-20 02:29 | XMS_ITS | Encounter Summary ---
Author Organization [facility] Address [address] [facility] [place] [address] Care Team Providers Care Coat Baster Name Role Phone Amor Contreras MD Primary Care Provider [phone] Encounter Details Date Type Department Care Team (Late st Contact Info) Description 08/05/2012 Hospital Out[facility] - Orthopedics [address] [place] [address] [place] [address] Feliberto Sandoval MD [address] [place] [address] OF ORTHOPEDIC SURGERY [place], [place] [id number] Discharge Disposition: Home or Self Care Social History Tobacco Use Types Packs/Day Years Used Date Smoking Tobacco: Never Assessed Sex and Gender Information Value Date Recorded Sex Assigned at Female 05/21/2021 12:05 PM MEDIA CENTER ASSISTANT Gender Identity Female 05/21/2021 12:05 PM MEDIA CENTER ASSISTANT Sexual Orientation Straight 05/21/2021 12 :05 PM MEDIA CENTER ASSISTANT documented as of this encounter Plan of Treatment Not on file documented as of this encounter Procedures Procedure Name Priority Date/Time Associated Diagnosis Comments XR KNEE LEFT 4VW OR MORE Routine 08/05/2012 9:47 AM CDT documented in this encounter Results * XR KNEE LEFT 4VW OR MORE (08/05/2012 9:47 AM CDT) Anatomical Region Laterality Modality Lower Extremity Other Impressions 08/05/2012 11:06 AM CDT IMPRESSION: Lateral tibial plateau fracture with articular depression, unchanged alignment. This report was dictated by Karthik Acevedo MD (residential sales executive). Dr. TERRY Ansari M.D. have personally reviewed [...] report was dictated by Karthik Acevedo MD (residential sales executive). Dr. TERRY Ansari M.D. have personally reviewed and interpreted thisexamination/study. This report was electronically signed by TERRY BELTRAN M.D. on 08/05/201211:06 AM . Feliberto Sandoval MD DIAGNOSTIC IMAGING [facility] documented in this encounter Visit Diagnoses Not on filedocumented in this encounter Care Teams Coat Baster Relationship Specialty Start Date End Date Amor Contreras MD PCP - General Internal Medicine 06/29/12 documented as of this encounter
--- OUTSIDE RECORDS SUMMARY | 2024-03-20 02:29 | XMS_ITS | Encounter Summary ---
Author Organization [facility] Address [address] [facility] [place] [address] Care Team Providers Care Fire Production Operator Name Role Phone Amor Contreras MD Primary Care Provider [phone] Encounter Details Date Type Department Care Team (Latest Contact Info) Description 02/03/2020 8:47 AM COATER ASSOCIATE - 02/03/2020 8:50 AM COATER ASSOCIATE Hospital Encounter [facility] EKG/HOLTER [address] [place] [phone] Magdaleno Martinez DO [address] [facility] [place] [phone] Discharge Disposition: Home or Self Care Social History Tobacco Use Types Packs/Day Years Used Date Smoking Tobacco: Never Smokeless Tobacco: Never Sex and Gender Information Value Date Recorded Sex Assigned at Female 05/21/2021 12:05 PM COATER ASSOCIATE Gender Identity Female 05/21/2021 12:05 PM COATER ASSOCIATE Sexual Orientation Straight 05/21/2021 12 :05 PM COATER ASSOCIATE COVID-19 Exposure Response Date Recorded In the last month, have you been in contact with someone who was confirmed or suspected to have Coronavirus / COVID-19? No / Unsure 02/03/2020 8:07 AM COATER ASSOCIATE documented as of this encounter Medications at [...] fluticasone propionate (FLONASE) 50 MCG/ACT nasal spray [place] 2 sprays into each nostril once daily [...] on filedocumented in this encounter Care Teams Fire Production Operator Relationship Specialty Start Date End Date Amor Contreras MD PCP - General Internal Medicine 06/29/12 documented as of this encounter
--- OUTSIDE RECORDS SUMMARY | 2024-03-20 02:29 | XMS_ITS | Encounter Summary ---
Author Organization [facility] Address [address] [facility] [place] [address] Care Team Providers Care Residential Supervisor Name Role Phone Amor Contreras MD Primary Care Provider Reason for Referral * Radiology Services (Routine) - Closed Specialty Diagnoses / Procedures Referred By Facundo randle Referred To Contact CT Scan Diagnoses Deviated nasal septum Mucous retention cyst of maxillary sinus Nasal polyps Procedures CT SINUS WO CONTRAST Ernesto Conley MD [facility] DEPT [place] [address] [facility] [address] [place] [address] Referral ID Status Reason Start Date Expiration Date Visits Re quested Visits Authorized [id number] Closed 12/21/2019 12/20/2020 1 1 Reason for Visit * Reason Comments Sinus Problem Encounter Details Date Type Department Care Team (Late Contact Info) Description 12/21/2019 9:15 AM CDT Office Visit [facility] [address], [address] [place] [address] Ernesto Conley MD [address] DEPT [place] [address] Chronic left-sided headache (Primary Dx); Deviated nasal septum; Mucous retention cyst of maxillary sinus; Nasal polyps; Hypertrophy of both inferior nasal turbinates; Chronic pansinusitis Social History Tobacco Use Types Packs/Day Years Used Date Smoking Tobacco: Never Smokeless Tobacco: Never Sex and Gender Information Value Date Recorded Sex Assigned at Female 05/21/2021 12:05 PM CENTRIFUGAL SCREEN TENDER Gender Identity Female 05/21/2021 12:05 PM CENTRIFUGAL SCREEN TENDER Sexual Orientation Straight 05/21/2021 12 :05 PM CENTRIFUGAL SCREEN TENDER documented as of this encounter Last Filed Vital Signs Vital Sign Reading Time Taken Comments Blood Pressure 123/70 12/21/2019 9:10 AM CDT Pulse 75 12/21/2019 9:10 AM CDT Temperature - - Respiratory Rate - - Oxygen Saturation - - Inhaled Oxygen Concentration - - Weight 61.2 kg (135 lb) 12/21/2019 9:10 AM CDT Height 160 cm (5' 3 ) 12/21/2019 9:10 AM CDT Body Mass Index 23.91 12/21/2019 9:10 AM CDT documented in this encounter Patient Instructions * Patient Instructions* Namita Philippe - 12/21/2019 9:07 AM CDT Thank you for visiting [facility] Otolaryngology - Head & Neck Surgery. [...] an appointment, please call our office at [phone] Friday through Friday from 8:30 am to4:30 pm. You can also request a routine appointment through your [employer] account. ??? Prescription Refills Contact your pharmacy [...] the medical exchange at and ask the joy operator to page the ENT physician manager presentation. *Caller ID blocking service will need to be turned off for your call to be returned. We also specialize in Hearing Aids, Allergy testing, swallowing disorders, voice problems, cancer diagnosis, and so much more. Visit our website at [email or web address] for information about our practice and an interactive health encyclopedia. documented in this encounter Progress Notes * Ernesto Conley MD - 12/21/2019 9:15 AM CDT History of Present Illness 59 year old with a h/o nasal obstruction. She is here today after obtaining an MRI and the request of her PCP due to left sided headaches. He wanted her to start Lyrica, but the patient refused. States that she takes Excedrin for her headaches. This controls her headaches overall. She reports that she has right sided nasal obstruction. Has tried nasal sprays, and takes Zyrtec daily. Underwent allergy testing with [facility]. Did not proceed with immunotherapy. Both of her brothers and her father have significant sinonasal issues and has undergone surgery. No previous CT scan of her sinuses. Her nasal obstruction is severe. Only some minimal improvement on medications. Deniessinonasal surgery. Referred to me after the MRI as there was noted to be sinusitis. Review of Systems A 14 point review of systems was obtained and negative except for: Nose: congestion No past medical history on file. No past surgical history on file. Current Outpatient Medications Medication Sig Dispense Refill ??? calcium citrate (CITRACAL 950) 950 MG tablet Take 950 mg by mouth once daily ??? cetirizine (ZYRTEC ALLERGY) 10 MG tablet Take 10 mg by mouth once daily ??? fluticasone propionate (FLONASE) 50 MCG/ACT nasal spray Crosby 2 sprays into each nostril once daily 16 g 3 No current facility-administered medications for this visit. Allergies Allergen Reactions ??? Penicillins Unknown ??? Sulfa Drugs Unknown Social History Tobacco Use ??? Smoking status: Never Smoker ??? Smokeless tobacco: Never Used Substance Use Topics ??? Alcohol use: Not on file Comment: Ocassional ??? Drug use: No Family History Problem Relation Name Age of Onset ??? Other Mother GDB ??? Allergic Rhinitis Father ??? Allergic Rhinitis Brother ??? Allergic Rhinitis Brother Vitals BP 123/70 Pulse 75 Ht 5' 3 (1.6 m) Wt 135 lb (61.2 kg) BMI 23.91 kg/m2 Physical Exam Constitutional: Alert, No acute Distress; Well developed/ Well nourished White/ female appears stated age. Neuro: cranial nerves III-XII grossly intact CV/Pulm: Normal respirations and peripheral pulses. Eyes: PERRL, EOMI Face/Skin: normal appearance, no lesions/masses Ears: Right: Normal external Auditory canal, normal TM Left: Normal external Auditory canal, normal TM Nose: Significant right septal deviation. Unable to visualize posteriorly so proceded with endoscopy. See note below. Mouth and oropharynx: symmetric tongue mobility, no lesions/masses/ulcers, no posterior pharyngeal drainage. Neck: supple, no lymphadenopathy, no masses Voice: strong MusculoSkeletal: moves all extremities well Procedure: Rigid Nasal Endoscopy Anesthesia: Bilateral Nasal Cavities sprayed with lidocaine and Neosynephrine Detail: Rigid nasal endoscopy performed bilaterally. Septum Is severely deviated to the right with greater than 95% obstruction. It is primarily anteriorly and cartilaginous. There is contact onto the right inferior turbinate and possibly a scar band. Unable to adequately visualize the right middleturbinate due to the septal deviation. On the left nasal cavity is more open but she does have signi ficant inferior turbinate hypertrophy. The middle turbinate on the left has polypoid changes with what appears to be polyps coming from the uncinate. There is significant edema. No chiara purulence. Reviewed extensively with patient. MR Review: MRI of head shows no intracranial pathology. She does have evidence of left mucous retention cyst, severe right septal deviation. Significant bilateral inferior turbinate hypertrophy. Alsolikely bilateral ethmoid disease. Assessment and Plan Nasal obstruction: Upon endoscopy, there is a noted significant right septal deviation and nasal polyps. Discussed surgical intervention. The surgical procedure, recovery time, benefits and risks were discussed at length in office. All questions were answered. We will have her begin using nasal saline irrigations and Flonase daily. Will have her obtain a treated CT scan for further evaluation. RTC in 5 or 6 weeks or sooner with any issue. IGail, acted as scribe for Ernesto Conley MD in documenting the service or procedure. To the best of my knowledge, I recorded what was dictated by Ernesto Conley MD. Provider: IErnesto MD have reviewed the initial documentation provided by Gail Boss and affirm that it is an accurate restatement of my dictated record of services. I understand and acknowledge that I am responsible for the accuracy of the documentation. Ernesto Conley MD * Gail Boss - 12/21/2019 9:06 AM CDT Review of Systems Colette Lopez reports the following; Nose: congestion documented in this encounter Procedure Notes * Ernesto Conley MD - 12/21/2019 9:50 AM CDTAssociated Order(s): PROC SINUS ENDOSCOPY Procedure(s): KS NASAL ENDOSCOPY,DX Pre-Procedure Diagnose(s): Chronic left-sided headache; Deviated nasal septum; Mucous retention cyst of maxillary sinus; Nasal polyps Procedure: Rigid Nasal Endoscopy Anesthesia: Bilateral Nasal Cavities sprayed with lidocaine and Neosynephrine Detail: Rigid nasal endoscopy performed bilaterally. Septum Is severely deviated to the right with greater than 95% obstruction. It is primarily anteriorly and cartilaginous. There is contact onto the right inferior turbinate and possibly a scar band. Unable to adequately visualize the right middleturbinate due to the septal deviation. On the left nasal cavity is more open but she does have signi ficant inferior turbinate hypertrophy. The middle turbinate on the left has polypoid changes with what appears to be polyps coming from the uncinate. There is significant edema. No chiara purulence. Reviewed extensively with patient. documented in this encounter Miscellaneous Notes * Addendum Note - Gail Boss - 12/21/2019 11:13 AM CDTAddended by: GAIL BOSS on: 12/21/2019 11:13 AM Modules accepted: Orders documented in this encounter Plan of Treatment Not on file documented as of this encounter Procedures Procedure Name Priority Date/Time Associated Diagnosis Comments KS NASAL ENDOSCOPY,DX Routine 12/21/2019 9:50 AM CDT Chronic left-sided headache Deviated nasal septum Mucous retention cyst of maxillary sinus Nasal polyps documented in this encounter Results * CT SINUS WO CONTRAST (01/12/2020 1:16 [...] . Ernesto Conley MD CT ORDERABLES * KS NASAL ENDOSCOPY,DX (12/21/2019 9:50 AM CDT) Narrative [...] in this encounter Visit Diagnoses Diagnosis Chronic left-sided headache- Primary Deviated nasal septum Mucous retention cyst of maxillary sinus Other diseases of nasal cavity and sinuses Nasal polyps Hypertrophy of both inferior nasal turbinates Hypertrophy of nasal turbinates Chronic pansinusitis Other chronic sinusitis Deviated nasal septum Mucous retention cyst of maxillary sinus Other diseases of nasal cavity and sinuses Nasal polyps documented in this encounter Care Teams Residential Supervisor Relationship Specialty Start Date End Date Amor Contreras MD PCP - General Internal Medicine 06/29/12 documented as of this encounter
--- OUTSIDE RECORDS SUMMARY | 2024-03-20 02:29 | XMS_ITS | Encounter Summary ---
Author Organization [facility] Address [facility] [place] [address] Care Team Providers Care Business Objects Consultant Name Role Phone Amor Contreras MD Primary Care Provider [phone] Reason for Visit * Reason Onset Date Comments MEDICATION REFILL 03/14/2020 Encounter Details Date Type Department Care Team (Late st Contact Info) Description 03/14/2020 Refill [facility] [address] [facility], [address] [place] [address] Ernesto Conley MD [facility] [place] [address] MEDICATION REFILL Social History Tobacco Use Types Packs/Day Years Used Date Smoking Tobacco: Never Smokeless Tobacco: Never Sex and Gender Information Value Date Recorded Sex Assigned at Female 05/21/2021 12:05 PM MOBILE SECURITY SPECIALIST Gender Identity Female 05/21/2021 12:05 PM MOBILE SECURITY SPECIALIST Sexual Orientation Straight 05/21/2021 12 :05 PM MOBILE SECURITY SPECIALIST COVID-19 Exposure Response Date Recorded In the last month, have you been in contact with someone who was confirmed or suspected to have Coronavirus / COVID-19? Unable to assess 03/08/2020 6:14 PM MOBILE SECURITY SPECIALIST documented as of this encounter Miscellaneous Notes * Telephone Encounter - Peg Richmond - 03/14/2020 11:22 AM CST Fax sent to [facility] for 1 mo topical abx rinse based off of culture results. Fax confirmation received. LE SECURITY SPECIALIST documented in this encounter Plan of Treatment Not on file documented as of this encounter Visit Diagnoses Not on filedocumented in this encounter Care Teams Business Objects Consultant Relationship Specialty Start Date End Date Amor Contreras MD PCP - General Internal Medicine 06/29/12 documented as of this encounter
--- OUTSIDE RECORDS SUMMARY | 2024-03-20 02:29 | XMS_ITS | Encounter Summary ---
Author Organization [facility] Address [facility] [place] [address] Care Team Providers Care Professor Of Business Administration Name Role Phone Amor Contreras MD Primary Care Provider [phone] Encounter Details Date Type Department Care Team (Latest Contact Info) Description 02/12/2020 Travel Social History Tobacco Use Types Packs/Day Years Used Date Smoking Tobacco: Never Smokeless Tobacco: Never Sex and Gender Information Value Date Recorded Sex Assigned at Female 05/21/2021 12:05 PM SILO OPERATOR Gender Identity Female 05/21/2021 12:05 PM SILO OPERATOR Sexual Orientation Straight 05/21/2021 12 :05 PM SILO OPERATOR COVID-19 Exposure Response Date Recorded In the last month, have you been in contact with someone who was confirmed or suspected to have Coronavirus / COVID-19? Unable to assess 02/12/2020 9:45 AM SILO OPERATOR documented as of this encounter Plan of Treatment Not on file documented as of this encounter Visit Diagnoses Not on filedocumented in this encounter Care Teams Professor Of Business Administration Relationship Specialty Start Date End Date Amor Contreras MD PCP - General Internal Medicine 06/29/12 documented as of this encounter
--- OUTSIDE RECORDS SUMMARY | 2024-03-20 02:29 | XMS_ITS | Encounter Summary ---
Author Organization [facility] Address [facility] [facility] [place] [address] Care Team Providers Care Team Foreman Name Role Phone Amor Contreras MD Primary Care Provider [phone] Encounter Details Date Type Department Care Team (Late st Contact Info) Description 08/05/2012 [facility] - Orthopedics [address] [place] [phone] Feliberto Sandoval MD [address] [place] [address] OF ORTHOPEDIC SURGERY [place], [place] [id number] Social History Tobacco Use Types Packs/Day Years Used Date Smoking Tobacco: Never Assessed Sex and Gender Information Value Date Recorded Sex Assigned at Female 05/21/2021 12:05 PM FUEL INJECTION SERVICER Gender Identity Female 05/21/2021 12:05 PM FUEL INJECTION SERVICER Sexual Orientation Straight 05/21/2021 12 :05 PM FUEL INJECTION SERVICER documented as of this encounter Plan of Treatment Not on file documented as of this encounter Visit Diagnoses Not on filedocumented in this encounter Care Teams Team Foreman Relationship Specialty Start Date End Date Amor Contreras MD PCP - General Internal Medicine 06/29/12 documented as of this encounter
--- OUTSIDE RECORDS SUMMARY | 2024-03-20 02:29 | XMS_ITS | Encounter Summary ---
Author Organization [facility] Address [facility] [facility] [address] Care Team Providers Care Government Clerk Name Role Phone Amor Contreras MD Primary Care Provider [phone] Encounter Details Date Type Department Care Team (Latest Contact Info) Description 03/21/2020 Travel Social History Tobacco Use Types Packs/Day Years Used Date Smoking Tobacco: Never Smokeless Tobacco: Never Sex and Gender Information Value Date Recorded Sex Assigned at Female 05/21/2021 12:05 PM BOILING HOUSE OILER Gender Identity Female 05/21/2021 12:05 PM BOILING HOUSE OILER Sexual Orientation Straight 05/21/2021 12 :05 PM BOILING HOUSE OILER COVID-19 Exposure Response Date Recorded In the last month, have you been in contact with someone who was confirmed or suspected to have Coronavirus / COVID-19? No / Unsure 03/21/2020 7:29 AM BOILING HOUSE OILER documented as of this encounter Plan of Treatment Not on file documented as of this encounter Visit Diagnoses Not on filedocumented in this encounter Care Teams Government Clerk Relationship Specialty Start Date End Date Amor Contreras MD PCP - General Internal Medicine 06/29/12 documented as of this encounter
--- OUTSIDE RECORDS SUMMARY | 2024-03-20 02:29 | XMS_ITS | Encounter Summary ---
Author Organization [facility] Address [address] [facility] [place] [address] Care Team Providers Care Electric Solderer Name Role Phone Amor Contreras MD Primary Care Provider [phone] Reason for Visit * Reason Onset Date Comments COVID-19 IMMUNIZATION/INJECTION 04/11/2020 Encounter Details Date Type Department Care Team (Latest Contact Info) Description 04/11/2020 1:10 PM IT PROFESSIONAL Clinical Support [facility] COVID Vaccination 2nd Floor [address] [place] [phone] Need for vaccination Social History Tobacco Use Types Packs/Day Years Used Date Smoking Tobacco: Never Smokeless Tobacco: Never Sex and Gender Information Value Date Recorded Sex Assigned at Female 05/21/2021 12:05 PM IT PROFESSIONAL Gender Identity Female 05/21/2021 12:05 PM IT PROFESSIONAL Sexual Orientation Straight 05/21/2021 12 :05 PM IT PROFESSIONAL COVID-19 Exposure Response Date Recorded In the last month, have you been in contact with someone who was confirmed or suspected to have Coronavirus / COVID-19? No / Unsure 03/21/2020 7:29 AM IT PROFESSIONAL documented as of this encounter Patient Instructions * Patient Instructions* Rosa Luna RN - 04/11/2020 1:05 PM IT PROFESSIONAL Images from the original note were not included. Vaccine recipients are encouraged to enroll in the CDC V-SAFE program for post vaccination monitoring. Sign up with your smartphone's browser at [employer].cdc.gov or Aim your smartphone's camera at this code. PROFESSIONAL documented in this encounter Progress Notes * Rosa Luna, RN - 04/11/2020 1:05 PM CST COVID screening checklist was reviewed with the patient. The Information sheet was given prior to administration. Injection site aseptically cleansed and injection given per Immunization(s) protocol.See Imm/Injections activity for details. PROFESSIONAL documented in this encounter Plan of Treatment Not on file documented as of this encounter Visit Diagnoses Diagnosis Need for vaccination- Primary Need for prophylactic vaccination and inoculation against unspecified single disease documented in this encounter Care Teams Electric Solderer Relationship Specialty Start Date End Date Amor Contreras MD PCP - General Internal Medicine 06/29/12 documented as of this encounter
--- OUTSIDE RECORDS SUMMARY | 2024-03-20 02:29 | XMS_ITS | Encounter Summary ---
Author Organization [facility] Address [address] [place] [address] [place] [address] Care Team Providers Care Herb Digger Name Role Phone Amor Contreras MD Primary Care Provider [phone] Reason for Visit * Reason Onset Date Comments Appointment 07/03/2020 Encounter Details Date Type Department Care Team (Late st Contact Info) Description 07/03/2020 Telephone [facility] [address], [address] [place] [address] Selina Capone Appointment Social History Tobacco Use Types Packs/Day Years Used Date Smoking Tobacco: Never Smokeless Tobacco: Never Sex and Gender Information Value Date Recorded Sex Assigned at Female 05/21/2021 12:05 PM GARMENT FOLDER Gender Identity Female 05/21/2021 12:05 PM GARMENT FOLDER Sexual Orientation Straight 05/21/2021 12 :05 PM GARMENT FOLDER documented as of this encounter Miscellaneous Notes * Telephone Encounter - Selina Capone - 07/03/2020 2:18 PM CDT Called patient to schedule follow up appointment in March with Dr Conley. Patient says she willcall us back to schedule closer to that time documented in this encounter Plan of Treatment Not on file documented as of this encounter Visit Diagnoses Not on filedocumented in this encounter Care Teams Herb Digger Relationship Specialty Start Date End Date Amor Contreras MD PCP - General Internal Medicine 06/29/12 documented as of this encounter
--- OUTSIDE RECORDS SUMMARY | 2024-03-20 02:29 | XMS_ITS | Encounter Summary ---
Author Organization [facility] Address [facility] [facility] [place] [address] Care Team Providers Care Behavioral Health Clinician Name Role Phone Amor Contreras MD Primary Care Provider [phone] Reason for Visit * Reason Onset Date Comments Appointment 04/13/2020 Encounter Details Date Type Department Care Team (Late st Contact Info) Description 04/13/2020 Telephone [facility] [address] [facility], [address] [place] [address] Selina Capone Appointment Social History Tobacco Use Types Packs/Day Years Used Date Smoking Tobacco: Never Smokeless Tobacco: Never Sex and Gender Information Value Date Recorded Sex Assigned at Female 05/21/2021 12:05 PM MANAGER HOUSE Gender Identity Female 05/21/2021 12:05 PM MANAGER HOUSE Sexual Orientation Straight 05/21/2021 12 :05 PM MANAGER HOUSE COVID-19 Exposure Response Date Recorded In the last month, have you been in contact with someone who was confirmed or suspected to have Coronavirus / COVID-19? No / Unsure 03/21/2020 7:29 AM MANAGER HOUSE documented as of this encounter Miscellaneous Notes * Telephone Encounter - Selina Capone - 04/13/2020 3:21 PM CST Called patient to schedule follow up appointment with Dr Conley in June. Patient says she will call palm and back forger to that time. GER HOUSE documented in this encounter Plan of Treatment Not on file documented as of this encounter Visit Diagnoses Not on filedocumented in this encounter Care Teams Behavioral Health Clinician Relationship Specialty Start Date End Date Amor Contreras MD PCP - General Internal Medicine 06/29/12 documented as of this encounter
--- OUTSIDE RECORDS SUMMARY | 2024-03-20 02:29 | XMS_ITS | Encounter Summary ---
Author Organization [facility] Address [facility] [place] [address] Care Team Providers Care Nutrition Representative Name Role Phone Amor Contreras MD Primary Care Provider [phone] Encounter Details Date Type Department Care Team (Late st Contact Info) Description 07/15/[facility] - Orthopedics [address] [place] [phone] Feliberto Sandoval MD [address] [place] [address] OF ORTHOPEDIC SURGERY [place], [place] [id number] Social History Tobacco Use Types Packs/Day Years Used Date Smoking Tobacco: Never Assessed Sex and Gender Information Value Date Recorded Sex Assigned at Female 05/21/2021 12:05 PM GIFT PACKER Gender Identity Female 05/21/2021 12:05 PM GIFT PACKER Sexual Orientation Straight 05/21/2021 12 :05 PM GIFT PACKER documented as of this encounter Plan of Treatment Not on file documented as of this encounter Visit Diagnoses Not on filedocumented in this encounter Care Teams Nutrition Representative Relationship Specialty Start Date End Date Amor Contreras MD PCP - General Internal Medicine 06/29/12 documented as of this encounter
--- OUTSIDE RECORDS SUMMARY | 2024-03-20 02:29 | XMS_ITS | Encounter Summary ---
Author Organization [facility] Address [address] [facility] [place] [address] Care Team Providers Care Leases And Land Supervisor Name Role Phone Amor Contreras MD Primary Care Provider [phone] Reason for Visit * Reason Onset Date Comments COVID-19 IMMUNIZATION/INJECTION 03/21/2020 Encounter Details Date Type Department Care Team (Latest Contact Info) Description 03/21/2020 8:10 AM CAFE OR RESTAURANT MANAGER Clinical Support [facility] COVID Vaccination 2nd [address] [place] [id number] Need for vaccination Social History Tobacco Use Types Packs/Day Years Used Date Smoking Tobacco: Never Smokeless Tobacco: Never Sex and Gender Information Value Date Recorded Sex Assigned at Female 05/21/2021 12:05 PM CAFE OR RESTAURANT MANAGER Gender Identity Female 05/21/2021 12:05 PM CAFE OR RESTAURANT MANAGER Sexual Orientation Straight 05/21/2021 12 :05 PM CAFE OR RESTAURANT MANAGER COVID-19 Exposure Response Date Recorded In the last month, have you been in contact with someone who was confirmed or suspected to have Coronavirus / COVID-19? No / Unsure 03/21/2020 7:29 AM CAFE OR RESTAURANT MANAGER documented as of this encounter Patient Instructions * Patient Instructions* Chery Paez RN - 03/21/2020 7:41 AM CAFE OR RESTAURANT MANAGER Images from the original note were not included. Vaccine recipients are encouraged to enroll in the CDC V-SAFE program for post vaccination monitoring. Sign up with your smartphone's browser at [place]uu.cdc.gov or Aim your smartphone's camera at this code. OR RESTAURANT MANAGER documented in this encounter Progress Notes * Chery Paez RN - 03/21/2020 7:41 AM CST COVID screening checklist was reviewed with the patient. The Information sheet was given prior to administration. Injection site aseptically cleansed and injection given per Immunization(s) protocol.See Imm/Injections activity for details. OR RESTAURANT MANAGER documented in this encounter Plan of Treatment Not on file documented as of this encounter Visit Diagnoses Diagnosis Need for vaccination- Primary Need for prophylactic vaccination and inoculation against unspecified single disease documented in this encounter Care Teams Leases And Land Supervisor Relationship Specialty Start Date End Date Amor Contreras MD PCP - General Internal Medicine 06/29/12 documented as of this encounter
--- OUTSIDE RECORDS SUMMARY | 2024-03-20 02:29 | XMS_ITS | Encounter Summary ---
Author Organization [facility] Address [facility] [facility] [place] [address] Care Team Providers Care Tool Machine Set Up Operator Name Role Phone Amor Contreras MD Primary Care Provider [phone] Encounter Details Date Type Department Care Team (Latest Contact Info) Description 01/12/2020 Travel Social History Tobacco Use Types Packs/Day Years Used Date Smoking Tobacco: Never Smokeless Tobacco: Never Sex and Gender Information Value Date Recorded Sex Assigned at Female 05/21/2021 12:05 PM RAW MATERIAL HANDLER Gender Identity Female 05/21/2021 12:05 PM RAW MATERIAL HANDLER Sexual Orientation Straight 05/21/2021 12 :05 PM RAW MATERIAL HANDLER COVID-19 Exposure Response Date Recorded In the last month, have you been in contact with someone who was confirmed or suspected to have Coronavirus / COVID-19? No / Unsure 01/12/2020 12:09 PM CDT documented as of this encounter Plan of Treatment Not on file documented as of this encounter Visit Diagnoses Not on filedocumented in this encounter Care Teams Tool Machine Set Up Operator Relationship Specialty Start Date End Date Amor Contreras MD PCP - General Internal Medicine 06/29/12 documented as of this encounter
--- OUTSIDE RECORDS SUMMARY | 2024-03-20 02:29 | XMS_ITS | Encounter Summary ---
Author Organization [facility] Address [address] [facility] [place] [address] Care Team Providers Care Chief Specialist Leed Name Role Phone Amor Contreras MD Primary Care Provider [phone] Encounter Details Date Type Department Care Team (Late st Contact Info) Description 07/15/2012 [facility] [address] [place] [address] [place] [address] Feliberto Sandoval MD [address] [place] [address] OF ORTHOPEDIC SURGERY [place], [place] [id number] Discharge Disposition: Home or Self Care Social History Tobacco Use Types Packs/Day Years Used Date Smoking Tobacco: Never Assessed Sex and Gender Information Value Date Recorded Sex Assigned at Female 05/21/2021 12:05 PM ASSEMBLY WORKER Gender Identity Female 05/21/2021 12:05 PM ASSEMBLY WORKER Sexual Orientation Straight 05/21/2021 12 :05 PM ASSEMBLY WORKER documented as of this encounter Plan of Treatment Not on file documented as of this encounter Procedures Procedure Name Priority Date/Time Associated Diagnosis Comments XR KNEE LEFT 4VW OR MORE Routine 07/15/2012 9:12 AM CDT documented in this encounter Results * XR KNEE LEFT 4VW OR MORE (07/15/2012 9:12 AM CDT) Anatomical Region Laterality Modality Lower Extremity Other Impressions 07/15/2012 3:01 PM CDT IMPRESSION: Slightly displaced lateral tibial plateau fracture. Small joint effusion. Report dictated by Bruno Dowling MD (resident). Dr. TERRY Ansari M.D. have personally reviewed and interpreted this examination/study. This report was electronically signed by TERRY BELTRAN M.D. ??on 07/15/2012 3:01 PM . Narrative 07/15/2012 3:01 PM CDT EXAM: LEFT KNEE 4 VIEWS HISTORY: Pain COMPARISON: None available FINDINGS: There is slightly displaced fracture of the lateral tibial plateau. There is a small joint effusion but no significant soft tissue swelling. Procedure Note Terry Beltran MD - 06/15/2017 EXAM: LEFT KNEE 4 VIEWS HISTORY: Pain COMPARISON: None available FINDINGS: There is slightly displaced fracture of the lateral tibialplateau. There is a small joint effusion but no significant soft tissueswelling. IMPRESSION IMPRESSION: Slightly displaced lateral tibial plateau fracture. Small joint effusion. Report dictated by Bruno Dowling MD (resident). Dr. TERRY Ansari M.D. have personally reviewed and interpreted thisexamination/study. This report was electronically signed by TERRY BELTRAN M.D. on 07/15/20123:01 PM . Feliberto Sandoval MD DIAGNOSTIC IMAGING O RDERABLES documented in this encounter Visit Diagnoses Diagnosis Pain in joint, lower leg documented in this encounter Care Teams Chief Specialist Leed Relationship Specialty Start Date End Date Amor Contreras MD PCP - General Internal Medicine 06/29/12 documented as of this encounter
--- OUTSIDE RECORDS SUMMARY | 2024-03-20 02:29 | XMS_ITS | Encounter Summary ---
Author Organization [facility] Address [address] [place] [address] Care Team Providers Care Crt Name Role Phone Amor Contreras MD Primary Care Provider Encounter Details Date Type Department Care Team (Latest Contact Info) Description 06/29/2012 2:25 PM CDT - 06/29/2012 11:59 PM CDT Hospital Encounter [facility] Imaging Services - Radiology [address] [place] [address] Amor Contreras MD [address] [place] [id number] Discharge Disposition: Home or Self Care Social History Tobacco Use Types Packs/Day Years Used Date Smoking Tobacco: Never Assessed Sex and Gender Information Value Date Recorded Sex Assigned at Female 05/21/2021 12:05 PM ROTARY FILTER OPERATOR Gender Identity Female 05/21/2021 12:05 PM ROTARY FILTER OPERATOR Sexual Orientation Straight 05/21/2021 12 :05 PM ROTARY FILTER OPERATOR documented as of this encounter Plan of Treatment Not on file documented as of this encounter Procedures Procedure Name Priority Date/Time Associated Diagnosis Comments XR KNEE LEFT 4VW OR MORE Routine 06/29/2012 2:33 PM CDT Knee pain documented in this encounter Results * XR KNEE 4+ VW LEFT (06/29/2012 2:33 PM CDT) Anatomical Region Laterality Modality Lower Extremity Radiographic Mildred ging 06/29/2012 3:44 PM CDT Impressions 06/29/2012 3:50 PM CDT Lateral tibial plateau fracture. Narrative 06/29/2012 3:50 PM CDT LEFT KNEE MULTIPLE VIEWS HISTORY: Fall, pain. Views of the knee demonstrate a fracture of the lateral tibial plateau, not well-defined on this study. A joint effusion is noted containing a fat fluid level. A CT might give additional information about the extent of the fracture. Procedure Note Niko Gil MD - 06/29/2012 LEFT KNEE MULTIPLE VIEWS HISTORY: Fall, pain. Views of the knee demonstrate a fracture of the lateral tibial plateau, not well-defined on this study. A joint effusion is noted containing a fat fluid level. A CT might give additional information about the extent of the fracture. IMPRESSION Lateral tibial plateau fracture. Feliberto Sandoval MD DIAGNOSTIC IMAGING O ERIN documented in this encounter Visit Diagnoses Diagnosis Knee pain Pain in joint, lower leg documented in this encounter Care Teams Crt Relationship Specialty Start Date End Date Amor Contreras MD PCP - General Internal Medicine 06/29/12 documented as of this encounter
--- OUTSIDE RECORDS SUMMARY | 2024-03-20 02:29 | XMS_ITS | Encounter Summary ---
Author Organization [facility] Address [facility] [facility] [address] Care Team Providers Care Epic Cadence Specialists Name Role Phone Amor Contreras MD Primary Care Provider [phone] Reason for Visit * Reason Comments Sinus Problem Encounter Details Date Type Department Care Team (Late st Contact Info) Description 06/27/2020 8:15 AM CDT Office Visit [facility] OT[facility]OLOG[facility] [address], [address] [place] [address] Ernesto Conley MD [facility] [place] [address] Nasal polyps (Primary Dx); Deviated nasal septum; Nasal turbinate hypertrophy; Chronic pansinusitis Social History Tobacco Use Types Packs/Day Years Used Date Smoking Tobacco: Never Smokeless Tobacco: Never Sex and Gender Information Value Date Recorded Sex Assigned at Female 05/21/2021 12:05 PM EXPERIMENTAL MECHANIC Gender Identity Female 05/21/2021 12:05 PM EXPERIMENTAL MECHANIC Sexual Orientation Straight 05/21/2021 12 :05 PM EXPERIMENTAL MECHANIC documented as of this encounter Last Filed Vital Signs Vital Sign Reading Time Taken Comments Blood Pressure 105/68 06/27/2020 8:18 AM CDT Pulse 65 06/27/2020 8:18 AM CDT Temperature 36.8 ??C (98.2 ??F) 06/27/2020 8:18 AM CD T Respiratory Rate - - Oxygen Saturation - - Inhaled Oxygen Concentration - - Weight 61.2 kg (135 lb) 06/27/2020 8:18 AM CDT Height 160 cm (5' 3 ) 06/27/2020 8:18 AM CDT Body Mass Index 23.91 06/27/2020 8:18 AM CDT documented in this encounter Patient Instructions * Patient Instructions* Namita Philippe Joni - 06/27/2020 8:22 AM CDT Thank you for visiting [facility] Otolaryngology - Head & Neck [...] an appointment, please call our office at [phone] Friday through Friday from 8:30 am to4:30 pm. You can also request a routine appointment through your [employer] account. ??? Prescription Refills Contact your pharmacy [...] the medical exchange at and ask the payloader operator to page the ENT physician parachute cushion installer. *Caller ID blocking service will need to be turned off for your call to be returned. We also specialize in Hearing Aids, Allergy testing, swallowing disorders, voice problems, cancer diagnosis, and so much more. Visit our website at [email or web address] for information about our practice and an interactive health encyclopedia. documented in this encounter Progress Notes * Namita Philippe - 06/27/2020 8:22 AM CDT Review of Systems Colette Lopez reports the following; Nose: sinus pain, post nasal drainage, congestion * Ernesto Conley MD - 06/27/2020 8:15 AM CDT History of Present Illness 59 [...] She is here today with reports of doing well. She continues to use nasal saline irrigations once per day. States that she has not experienced a headache in months. She has been taking Zyrtec daily toreduce allergy symptoms, with good results. Review of Systems A 12-system review of [...] 10 mg by mouth as needed ??? fluticasone propionate (FLONASE) 50 MCG/ACT nasal spray [place] 2 sprays into each nostril once daily [...] Never Smoker ??? Smokeless tobacco: Never Used Vaping Use ??? Vaping Use: Every day Substance Use Topics ??? Alcohol use: Not on file Comment: occasional ??? Drug use: No Family History Problem Relation Name Age of Onset ??? Other Mother GDB ??? Allergic Rhinitis Father ??? Allergic Rhinitis Brother ??? Allergic Rhinitis Brother Vitals BP 105/68 Pulse 65 Temp 98.2 ??F (36.8 ??C) Ht 5' [...] Septum is healed appropriately with only some very mild right septal deviation. Bilateral middle meatus is open with good healing and excellent appearance of mucosa. Open ethmoid. Maxillary and sphenoid sinuses are widely patent. Excellent mucosal appearance. Reviewed with patient. Assessment and Plan Chronic sinusitis: Upon endoscopy, the overall appearance of the mucosa is ideal. Instructed to continue use of nasal saline irrigations, nasal inhaled steroids and antihistamines as needed. RTC in 9 months or sooner with any issue. IAngelique, acted [...] accuracy of the documentation. Ernesto Conley MD documented in this encounter Procedure Notes * Ernesto Conley MD - 06/27/2020 9:59 AM CDTAssociated Order(s): PROC SINUS ENDOSCOPY Procedure(s): PA NASAL ENDOSCOPY,DX Pre-Procedure Diagnose(s): Nasal polyps; Deviated nasal septum; Nasal turbinate hypertrophy; Chronic pansinusitis Procedure: Nasal Endoscopy Anesthesia: none Detail: Rigid nasal endoscopy was performed in bilateral nasal cavity. Septum is healed appropriately with only some very mild right septal deviation. Bilateral middle meatus is open with good healing and excellent appearance of mucosa. Open ethmoid. Maxillary and sphenoid sinuses are widely patent. Excellent mucosal appearance. Reviewed with patient. documented in this encounter Plan of Treatment Not on file documented as of this encounter Procedures Procedure Name Priority Date/Time Associated Diagnosis Comments PA NASAL ENDOSCOPY,DX Routine 06/27/2020 9:59 AM CDT Nasal polyps Deviated nasal septum Nasal turbinate hypertrophy Chronic pansinusitis documented in this encounter Results * PA NASAL ENDOSCOPY,DX (06/27/2020 9:59 AM CDT) Narrative [...] encounter Visit Diagnoses Diagnosis Nasal polyps- Primary Deviated nasal septum Nasal turbinate hypertrophy Hypertrophy of nasal turbinates Chronic pansinusitis Other chronic sinusitis documented in this encounter Care Teams Epic Cadence Specialists Relationship Specialty Start Date End Date Amor Contreras MD PCP - General Internal Medicine 06/29/12 documented as of this encounter
--- OUTSIDE RECORDS SUMMARY | 2024-03-20 02:29 | XMS_ITS | Encounter Summary ---
Author Organization [facility] Health Address [facility] [place] [address] Care Team Providers Care Patient Services Rep Name Role Phone Amor Contreras MD Primary Care Provider [phone] Reason for Visit * Reason Comments Establish Care Hives Encounter Details Date Type Department Care Team (Late st Contact Info) Description 10/22/2018 8:40 AM CDT Office Visit [facility] [address] [place] [id number] Larry Sawyer MD [address] [place] [address] Urticaria (Primary Dx); Non-seasonal allergic rhinitis, unspecified trigger; Mild intermittent asthma without complication (HCC) Social History Tobacco Use Types Packs/Day Years Used Date Smoking Tobacco: Never Smokeless Tobacco: Never Sex and Gender Information Value Date Recorded Sex Assigned at Female 05/21/2021 12:05 PM MANIPULATIVE THERAPY SPECIALIST Gender Identity Female 05/21/2021 12:05 PM MANIPULATIVE THERAPY SPECIALIST Sexual Orientation Straight 05/21/2021 12 :05 PM MANIPULATIVE THERAPY SPECIALIST documented as of this encounter Last Filed Vital Signs Vital Sign Reading Time Taken Comments Blood Pressure 106/64 10/22/2018 8:57 AM CDT Pulse 88 10/22/2018 8:57 AM CDT Temperature 36.6 ??C (97.9 ??F) 10/22/2018 8:57 AM CD T Respiratory Rate 20 10/22/2018 8:57 AM CDT Oxygen Saturation - - Inhaled Oxygen Concentration - - Weight 65.8 kg (145 lb) 10/22/2018 8:57 AM CDT Height 160 cm (5' 3 ) 10/22/2018 8:57 AM CDT Body Mass Index 25.69 10/22/2018 8:57 AM CDT documented in this encounter Patient Instructions * Patient Instructions* Larry Sawyer MD - 10/22/2018 10:32 AM CDT HIVES May increase cetirizine to 10 mg BID - sedation concern Zantac 75-150 BID Discussed chronic urticaria index demonstrating elevated levels of autoantibodies against high affinity receptor for IgE) Deferring lab tests NOSE Avoid spraying nose spray towards center of nose, use nose to toes position to prevent medicationdripping down throat and to reduce taste. If you develop nose bleeds, hold taking nose spray for several days, andif nose bleeds continue, please contact us. Intranasal ipratropium runny nose documented in this encounter Progress Notes * Laryr Sawyer MD - 10/22/2018 10:14 AM CDT REFERRING PHYSICIAN: Unknown, Provider CHIEF COMPLAINT: Establish Care and Hives HISTORY OF PRESENT ILLNESS: Colette Lopez is a 58 year old female who presents for evaluation of hives. She has not seen an Residential Pest Control Technician before. 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, big change in her life Hives were all the time Would last more than 24 hours before treatment, they lasted a week before seeing the doctor- started on oracio 180 and hydrocortisone cream, benadryl ointment at night for itching, sometimes po diphenhydramine Steroid shots: At least 2 shots, but they would come back a few days later Oral steroids: Unsure of how long, but they would come back a few days later Then started zyrtec 10 mg and Zantac 75 BID - hardly gets them now, takes them in morning and evening If she forgets a dose, she can get hives here and there but limited on body, still just as itchy All over the body, could be anywhere, no pattern She does feel like her stress has gone down around the same time as the hives improving No relation to foods meds physical factors No relation to foods including red meat Described as raised red welts, itchy, widespread over body Last got hives maybe 20 years ago, no known reaction, one time only Mom got hives for a while and never told why, not sure how long she had them Rhinoconjunctivitis: Currently using: Zyrtec, Zantac, saline eye drops ?? She has been having nasal congestion, rhinorrhea, sneezing, eye itching, eye irritation, all year long, worse in early Spring, late Spring and late Summer/early Fall. ?? Most bothersome symptom(s): Gets welts with mosquitos ?? Nasal congestion is equal ?? Symptoms are relieved with Zyrtec, saline eye drops. ?? Symptoms does not improve on vacations out of the area. ?? Symptoms are triggered/worsened with exposure to: ?? Irritants: [] Detergents/soap, [] cooking odors, [x] perfumes/strong odor, [x] passive smoke exposure ?? House Dust: [x] Dusting, [] vacuuming ?? Molds: [] cutting grass, [] raking leaves, [x] basements ?? Pets/animals: [] Dogs [x] Cats ?? Weather: [] hot , [] Cold, [x] humid, [] damp, [] sudden temperature/humidity changes ?? Medications: [] aspirin/NSAID exposure, [] Lisinopril ?? Workplace: [] ?? Other: Rhinosinusitis: She has had 0 sinus infections per year. She had experienced ?? decreased smell/taste: Yes ?? Halitosis: Yes ?? facial pressure: Yes ?? green/yellow drainage: Yes Previously sinus CTs/x-rays:No Patient's definition of sinusitis: none in the past year Asthma: Asthma Control Test Score 25/25 Asthma Control Test In the past 4 weeks, how much of the time did your asthma keep you from getting as much done at work, school or at home?: 5-None of the time During the past 4 weeks, how often have you had shortness of breath?: 5- Not at all During the past 4 weeks, how often did your asthma symptoms (wheezing, coughing, shortness of breath, chest tightness or pain) wake you up at night or earlier than usual in the morning?: 5- Not at all During the past 4 weeks, how often have you used your rescue inhaler or nebulizer medication (such as albuterol)?: 5-Not at all How would you rate your asthma control in the last 4 weeks?: 5-Completely controlled ACT Total Score for the child 12 yrs & >: 25 She is currently taking nothing - has albuterol inhaler, prescribed 3 years ago, had wheezing in humid summer, can't remember the last time she used it She uses albuterol rarely. Last used: Can't remember ?? She does not have shortness of breath, chest tightness, or cough on cold air exposure. ?? She does have lingering cough after URI. ?? Ms. Lopez was diagnosed with asthma at 55 years of age. ?? She has never been intubated for asthma in the past. ?? She has never been hospitalized for asthma, 0 times in the ICU. ?? Over the last year, she has not received steroid bursts, visited the emergency department 0 times, and been hospitalized 0 times. ?? Over the past 4 weeks: ?? She wakes up 0 days a week with cough, wheeze, SOB ?? She has rarely has exertional symptoms with (coughwheezeSOB). ?? Symptoms are also exacerbated by URI, weather changes, allergies, passive smoke exposure. Vocal Cord Dysfunction Screening: Negative GERD screening: Mild symptoms, last was a few weeks ago Currently taking Zantac [x] epigastric pain [] regurgitation of food [] wakes up with sour or bitter taste [] eats within 3 hours prior to bed [] drinks liquids within 1 hour prior to bed Eczema screening: Negative Urticaria: ?? Duration (greater or less than 6 weeks): Yes ?? Frequency: Every single day, then starting treatment would give relief for a few days ?? Areas affected: Everywhere ?? Individual lesions last <24 hours: In the beginning lasted more than 24 hours ?? Relation to foods, meds (e.g. NSAIDs), physical factors (heat, cold, pressure applied, sun exposure, exercise):started to notice creases/elastic/bracelets ?? Medications tried for urticaria: Benadryl, hydrocortisone cream, oracio, steroid injections, oral steroids, zyrtec and zantac now Infection History Infection #/lifetime Infection #/lifetime Pneumonia 0 Bronchiolitis 0 Bronchitis 0 Croup 0 OM 0 Influenza 1 Pharyngitis 0 Thrush 0 Cellulitis 0 Zoster 0 Abscess 0 Varicella 0 Diarrhea 0 Fungal nail infection 0 Conjunctivitis 0 Fungal skin infection 0 Sinusitis 0 IV antibiotics 0 ALLERGIES & SENSITIVITIES: Food: Tolerates milk, egg, wheat, soy, peanut, tree nuts, fish, and shellfish. Drug: Penicillins and Sulfa drugs Allergies Allergen Reactions ??? Penicillins Other unknown ??? Sulfa Drugs Other Unknown, patient states she doesn't remember Age or date when reaction occurred- unsure, very young, doesn't remember reaction symptoms for penicillin or sulfa drugs Stinging insect: Mosquitos - large welt at bite Bees - Welts where stung, no breathing difficulty, swelling at site, no nausea/vomiting/diarrhea Latex (e.g. gloves, balloons, condoms): none Current Outpatient Prescriptions Medication Sig ??? calcium citrate (CITRACAL 950) 950 MG tablet Take 950 mg by mouth once daily ??? cetirizine (ZYRTEC ALLERGY) 10 MG tablet Take 10 mg by mouth once daily ??? raNITIdine HCl (ZANTAC 75 PO) Take 1 capsule by mouth 2 times daily No current facility-administered medications for this visit. Denies history/symptoms of eczema, venom allergy, food allergy, angioedema, recurrent infections. PAST MEDICAL HISTORY: Patient Active Problem List Diagnosis Date Noted ??? SVT (supraventricular tachycardia) 05/17/2015 Priority: Not Prioritized ??? Osteopenia 01/14/2015 Priority: Not Prioritized SVT, was on metoprolol, no longer on it PAST SURGICAL HISTORY: No past surgical history on file. IMMUNIZATION STATUS: Stated as up to date, has received seasonal influenza. SOCIAL/ENVIRONMENTAL HISTORY: She lives in a House for 11 years, with central heat/air Basement: [] none [] unfinished [x] finished [] dry [] damp. Pets: dog Bedroom has: [] carpet, [] hardwood / laminated floor, [] stuffed animals, [x] blinds, [] HDM covers on mattress & pillow Tobacco use: never smoker Tobacco exposure: No Cockroaches: No Uses humidifier in the winter. 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 Disease Father's side Mother's side Brother or sister Allergic rhinitis Dad negative negative Asthma Dad - also COPD negative negative Food allergy negative negative negative Atopic dermatitis negative negative negative Rheumatoid arthritis negative negative sister SLE negative Maternal aunt negative Thyroid disease negative Mom negative Immunodeficiency negative negative negative Urticaria negative Mom negative Leukemia negative negative negative Lymphoma negative negative negative Mom passed from GBM brain tumor REVIEW OF SYSTEMS: Constitutional: [x] weight changes [x] fever/chills [x] night sweats [x] sleep problems [] loss of appetite [] fatigue Eyes: [] vision difficulty [] frequent tearing [] redness [] itching [] dark circles ENT: [] hearing difficulty [] earache [] nasal congestion [] nose bleeds [] sore throat [] sinus problems [] headache near eyes [] post nasal drip [] itchy nose CV: [] chest pain [] palpitations [] orthopnea [] leg swelling. Resp: [] frequent cough [] hemoptysis [] shortness of breath [] wheezing GI: [] nausea [] vomiting [] diarrhea [] constipation [] change in bowel pattern [] abdominal pain [] heartburn : [] dysuria [] hematuria MS: [] back pain [] joint pain [] bone pain, swelling, or redness [] muscle pain, cramps, or weakness Skin: [] rash [x] itching [] suspicious lesions or spots [] dryness Neuro: [] weakness [] seizures [] frequent headaches [] lightheadedness or dizziness or syncope Psych: [] depression [] anxiety Endocrine: [] polyuria [] polydipsia [] flushing Heme/Lymph: [] easy bruising [] prolonged bleeding [] enlarged lymph nodes Allergic/Immunologic: [x] hives [] hay fever [] persistent infections [] pneumonia [x] sinus problems [] history of meningitis [] HIV exposure [] angioedema PHYSICAL EXAM: BP 106/64 (BP SITE: RIGHT ARM, BP POSITION: SITTING, BP CUFF SIZE: 11) Pulse 88 Temp 97.9 ??F (36.6??C) (Oral) Resp 20 Ht 5' 3 (1.6 m) Wt 145 lb (65.8 kg) BMI 25.69 kg/m2 GENERAL: No acute distress EYES: Conjunctiva clear bilaterally; no allergic shiners present. ENT: ---EARS: TM clear bilaterally ---NOSE: mucosa pale, not boggy, turbinates not enlarged, no secretions ---OROPHARYNX: No cobblestoning, nonerythematous CARDIOVASCULAR: Heart with regular rate and rhythm, normal S1 RESPIRATORY: Lungs clear to auscultation bilaterally, no wheezes/rales/rhonchi ABDOMEN: Soft, non-tender, non-distended EXTREMITIES: No cyanosis, edema, or clubbing SKIN: Non-raised erythematous macule on back, nonpruritic, flare surrounding, no other skin changeson exam LYMPHATIC: Palpation of nodes in neck reveals no lymphadenopathy PSYCHIATRIC: Pleasant, conversive TESTING:Unable to skin tests today as did not withhold oral antihistamines ASSESSMENT AND PLAN Urticaria Yes ??? Non-seasonal allergic rhinitis, unspecified trigger ? Chronic Urticaria: Likely Chronic spontaneous urticaria No clear relation to food medications physical factors May increase cetirizine to 10 mg BID - sedation concern Zantac 75-150 BID Discussed chronic urticaria index demonstrating elevated levels of autoantibodies against high affinity receptor for IgE) but results would not alter mgmt Deferring lab tests ?? Allergic rhinitis: Start intranasal ipratropium TID PRN for runny nose Discussed spraying away from center of nose, use nose to toes position to prevent medication dripping down throat ?? Mild intermittent Asthma: Symptoms well controlled at this time,reviewed MDI technique Noted reactive airways disease potential and need for Asthma inhalers at that time ?? Drug Allergy: - Unsure about reactions to sulfa and penicillins as a child, could offer Penicillin testing at future visit but would need to be off oral antihistamines Also see New Patient Questionnaire - reviewed with patient Electronically signed by: Larry Sawyer MD, Allergy & Immunology 10/22/2018 10:14 AM documented in this encounter Plan of Treatment Not on file documented as of this encounter Visit Diagnoses Diagnosis Urticaria- Primary Non-seasonal allergic rhinitis, unspecified trigger Mild intermittent asthma without complication (HCC) Unspecified asthma documented in this encounter Care Teams Patient Services Rep Relationship Specialty Start Date End Date Amor Contreras MD PCP - General Internal Medicine 06/29/12 documented as of this encounter
--- OUTSIDE RECORDS SUMMARY | 2024-03-20 02:29 | XMS_ITS | Encounter Summary ---
Author Organization [facility] Address [address] [place] [address] Care Team Providers Care Azure Architect Name Role Phone Amor Contreras MD Primary Care Provider [phone] Encounter Details Date Type Department Care Team (Late st Contact Info) Description 03/04/2020 Orders Only [facility] - General Surgery [address] [place] [address] Cornelio Trejo MD [address] [place] [id number] Social History Tobacco Use Types Packs/Day Years Used Date Smoking Tobacco: Never Smokeless Tobacco: Never Sex and Gender Information Value Date Recorded Sex Assigned at Female 05/21/2021 12:[address] BAILIFF Gender Identity Female 05/21/2021 12:[address] BAILIFF Sexual Orientation Straight 05/21/2021 12 :[address] BAILIFF COVID-19 Exposure Response Date Recorded In the last month, have you been in contact with someone who was confirmed or suspected to have Coronavirus / COVID-19? Unable to assess 02/12/2020 9:[address] BAILIFF documented as of this encounter Plan of Treatment Not on file documented as of this encounter Visit Diagnoses Not on filedocumented in this encounter Care Teams Azure Architect Relationship Specialty Start Date End Date Amor Contreras MD PCP - General Internal Medicine 06/29/12 documented as of this encounter
--- OUTSIDE RECORDS SUMMARY | 2024-03-20 02:29 | XMS_ITS | Encounter Summary ---
Author Organization [facility] Address [facility] [facility] [place] [address] Care Team Providers Care Paper Goods Machine Set Up Operator Name Role Phone Amor Contreras MD Primary Care Provider [phone] Reason for Visit * Reason Comments Results ct Encounter Details Date Type Department Care Team (Late st Contact Info) Description 01/12/2020 2:00 PM CDT Office Visit [facility] [address] [place] [address], [place] [id number] Ernesto Conley MD [address] [place] [address] [place] [address] Deviated nasal septum (Primary Dx); Nasal polyps; Hypertrophy of both inferior nasal turbinates; Chronic pansinusitis Social History Tobacco Use Types Packs/Day Years Used Date Smoking Tobacco: Never Smokeless Tobacco: Never Sex and Gender Information Value Date Recorded Sex Assigned at Female 05/21/2021 12:05 PM BANK APPRAISER Gender Identity Female 05/21/2021 12:05 PM BANK APPRAISER Sexual Orientation Straight 05/21/2021 12 :05 PM BANK APPRAISER COVID-19 Exposure Response Date Recorded In the last month, have you been in contact with someone who was confirmed or suspected to have Coronavirus / COVID-19? No / Unsure 01/12/2020 12:09 PM CDT documented as of this encounter Patient Instructions * Patient Instructions* Chata Young - 01/12/2020 1:36 PM CDT Thank you for visiting [facility] Otolaryngology - Head & Neck Surgery. We appreciate your confidence in allowing us to participate in your health care. You may receive a survey about your visit with us today. Making our patients happy isn't just happy talk; it's our mission. Please tell us ifwe made the right impression on you- and how we can serve you better. Please SAVE the information below, it will assist you when it's time for you to contact us. To MAKE - CHANGE - CANCEL an office appointment If you become ill, need to be seen before your next scheduled appointment, or need to cancel or reschedule an appointment, please call our office at [phone] Friday through Friday from 8:30 am to4:30 pm. You can also request a routine appointment through your [employer] account. Prescription Refills Contact your pharmacy to request all refills. The pharmacy will need to fax the request to us at . Please allow a minimum of 48-72 hours for your prescription to be completed. Your pharmacy will notify you when your prescription is ready to be picked up. Medical Emergency / After Hours Contact Information If you have a medical emergency, please call 911 or go to the nearest emergency room. For urgent medical calls which cannot wait until the office opens, please call the medical exchangeat and ask the electric shipyard operator to page the ENT physician cotton expert. *Caller ID blocking service will need to be turned off for your call to be returned. We also specialize in Hearing Aids, Allergy testing, swallowing disorders, voice problems, cancer diagnosis, and so much more. Visit our website at [email or web address] for information about our practice and an interactive healthencyclopedia. documented in this encounter Progress Notes * Ernesto Conley MD - 01/12/2020 3:56 PM CDT History of Present Illness 59 year old with a h/o nasal obstruction. Presented initially after obtaining an MRI and the request of her PCP due to left sided headaches. He wanted her to start Lyrica, but the patient refused. States that she takes Excedrin for her headaches. This controls her headaches overall. At that visit she reported that she has right sided nasal obstruction. Has tried nasal sprays, and takes Zyrtec daily. Underwent allergy testing with [facility]. Did not proceed with immunotherapy. Both of her brothers and her father have significant sinonasal issues and has undergone surgery. No previous CT scan ofher sinuses. Her nasal obstruction is severe. Only some minimal improvement on medications. Denies s inonasal surgery. Referred to me after the MRI as there was noted to be sinusitis. Since her last visit she has been treated with medications and obtained a CT scan. No significant change in her symptoms. Review of Systems A 14 point review [...] fluticasone propionate (FLONASE) 50 MCG/ACT nasal spray [place] 2 sprays into each nostril once daily [...] Rhinitis Brother ??? Allergic Rhinitis Brother Vitals There were no vitals taken for this visit. Physical Exam Constitutional: Alert, No acute Distress; [...] Voice: strong MusculoSkeletal: moves all extremities well CT scan [facility] sinuses from [facility]: This was reviewed with the patient. She has near total opacification of right ethmoids and patchy anterior and posterior opacification of left ethmoids. Partial opacification of bilateral maxillary sinuses and mucosal thickening in the floor ofright sphenoid. The sphenoid and right frontal sinus is normal. Very mild mucosal thickening at theroof of the left frontal sinus. Severe right septal deviation anteriorly, primarily cartilaginous. Significant bilateral inferior turbinate hypertrophy. Assessment and Plan Rhinosinusitis: Positive posttreatment CT scan. We'll proceed with bilateral maxillary antrostomy and ethmoidectomy as well as right sphenoidotomy. Risks and benefits including intracranial and intraorbital injury discussed with patient. Nasal obstruction: Upon endoscopy, there is a noted significant right septal deviation and inferiorturbinate hypertrophy. We'll proceed with septoplasty and inferior turbinate reduction. Risks including septal perforation discussed with patient. * Chata Young - 01/12/2020 1:39 PM CDT Review of Systems Colette reports the following:no complaints today documented in this encounter Plan of Treatment Not on file documented as of this encounter Visit Diagnoses Diagnosis Deviated nasal septum- Primary Nasal polyps Hypertrophy of both inferior nasal turbinates Hypertrophy of nasal turbinates Chronic pansinusitis Other chronic sinusitis documented in this encounter Care Teams Paper Goods Machine Set Up Operator Relationship Specialty Start Date End Date Amor Contreras MD PCP - General Internal Medicine 06/29/12 documented as of this encounter
--- OUTSIDE RECORDS SUMMARY | 2024-03-20 02:29 | XMS_ITS | Encounter Summary ---
Author Organization [facility] Address [address] [place] [address] Care Team Providers Care Roving Winder Name Role Phone Amor Contreras MD Primary Care Provider [phone] Encounter Details Date Type Department Care Team (Latest Contact Info) Description 02/12/2020 9:48 AM MAINTENANCE SUPERVISOR - 02/12/2020 11:59 PM MAINTENANCE SUPERVISOR Hospital Encounter [facility] [address] [place] [id number] Ernesto Conley MD [address] [place] [address] Discharge Disposition: Home or Self Care Social History Tobacco Use Types Packs/Day Years Used Date Smoking Tobacco: Never Smokeless Tobacco: Never Sex and Gender Information Value Date Recorded Sex Assigned at Female 05/21/2021 12:05 PM MAINTENANCE SUPERVISOR Gender Identity Female 05/21/2021 12:05 PM MAINTENANCE SUPERVISOR Sexual Orientation Straight 05/21/2021 12 :05 PM MAINTENANCE SUPERVISOR COVID-19 Exposure Response Date Recorded In the last month, have you been in contact with someone who was confirmed or suspected to have Coronavirus / COVID-19? Unable to assess 02/12/2020 9:45 AM MAINTENANCE SUPERVISOR documented as of this encounter Medications at [...] fluticasone propionate (FLONASE) 50 MCG/ACT nasal spray [place] 2 sprays into each nostril once daily [...] Procedure Name Priority Date/Time Associated Diagnosis Comments SARS-COV-2 (COVID-19) IN HOUSE Routine 02/12/2020 9:49 AM MAINTENANCE SUPERVISOR Pre-op testing documented in this encounter Results * SARS-COV-2 (COVID-19) PRE-SURGICAL/PROCEDURE (02/12/2020 9:49 AM MAINTENANCE SUPERVISOR) COVID-19 PCR Not detected Not detected 02/12/2020 7:42 PM MAINTENANCE SUPERVISOR [facility] Microbiology SPECIMEN FROM NASOPHARYNGEAL STRUCTURE / Unknown Collection / Unknown 02/12/2020 9:49 AM MAINTENANCE SUPERVISOR 02/12/2020 9:49 AM MAINTENANCE SUPERVISOR Narrative [facility] - 02/12/2020 7:42 PM MAINTENANCE SUPERVISOR This nucleic acid amplification assay performance was validated by [facility]. This test has been authorized [...] Ernesto Conley MD LAB - MICROBIOLOGY ORDERABLES [facility] [address] [place], [place] [address], [facility] [phone] documented in this encounter Visit Diagnoses Diagnosis Pre-op testing Preoperative examination, unspecified documented in this encounter Care Teams Roving Winder Relationship Specialty Start Date End Date Amor Contreras MD PCP - General Internal Medicine 06/29/12 documented as of this encounter
--- OUTSIDE RECORDS SUMMARY | 2024-03-20 02:29 | XMS_ITS | Encounter Summary ---
Author Organization [facility] Address [address] [place] [address] Care Team Providers Care Couturiere Name Role Phone Amor Contreras MD Primary Care Provider [phone] Reason for Visit * Radiology Services (Routine) - Closed Specialty Diagnoses / Procedures Referred By Contac t Referred To Contact MRI Diagnoses Nonintractable headache, unspecified chronicity pattern, unspecified headache type Procedures MRI BRAIN WWO CONTRAST Amor Contreras MD [address] [place] [address] [facility] Mri [address] [place] [address] Referral ID Status Reason Start Date Expiration Date Visits Re quested Visits Authorized [id number] Closed 09/21/2019 01/19/2020 1 1 Encounter Details Date Type Department Care Team (Latest Contact Info) Description 09/23/2019 2:17 PM CDT - 09/23/2019 11:59 PM CDT Hospital Encounter [facility] MRI [address] [place] [address] Unknown, Provider Discharge Disposition: Home or Self Care Social History Tobacco Use Types Packs/Day Years Used Date Smoking Tobacco: Never Smokeless Tobacco: Never Sex and Gender Information Value Date Recorded Sex Assigned at Female 05/21/2021 12:05 PM OFFSET DUPLICATING MACHINE OPERATOR Gender Identity Female 05/21/2021 12:05 PM OFFSET DUPLICATING MACHINE OPERATOR Sexual Orientation Straight 05/21/2021 12 :05 PM OFFSET DUPLICATING MACHINE OPERATOR documented as of this encounter Medications at Time of Discharge Medication Sig Dispensed Refills Start Date End Date calcium citrate (CITRACAL 950) 950 MG tablet Take 950 mg by mouth once daily cetirizine (ZYRTEC ALLERGY) 10 MG tablet Take 10 mg by mouth as needed ipratropium (ATROVENT) 0.03 % nasal spray [place] 1-2 sprays into each nostril 3 times daily as needed 1 bottles 11 10/22/2018 12/21/2019 raNITIdine HCl (ZANTAC 75 PO) Take 1 capsule by mouth 2 times daily 12/21/2019 documented as of this encounter Plan of Treatment Not on file documented as of this encounter Procedures Procedure Name Priority Date/Time Associated Diagnosis Comments MRI BRAIN WWO CONTRAST Routine 09/23/2019 4:34 PM CDT Nonintractable headache, unspecified chronicity pattern, unspecified headache type CREATININE - POCT INTERFACED Routine 09/23/2019 4:04 PM CDT documented in this encounter Results * MRI BRAIN WWO CONTRAST (09/23/2019 4:34 PM CDT) Anatomical Region Laterality Modality Head Magnetic Resonan ce 09/24/2019 10:5 3 AM CDT Impressions 09/24/2019 6:37 PM CDT IMPRESSION: 1. No evidence of acute intracranial findings. 2. Significant paranasal sinus disease as outlined. Dictated by Geno Gamble M.D. (senior vice president & general counsel). This report was approved ??by Geno Gamble [...] as outlined. Dictated by Geno Gamble M.D. (senior vice president & general counsel). This report was approved by Geno Gamble on 09/24/2019 6:37 PM . I, Dr. THERESA FUNES have personally reviewed and interpreted this examination/study. This report was electronically signed by THERESA FUNES on09/24/2019 6:37 PM . Amor Contreras MD MR ORDERABLES * CREATININE - POCT INTERFACED (09/23/2019 4:04 PM CDT) Creatinine POCT 0.54 0.30 - 1.30 mg/dL 09/23/2019 4:04 PM CDT [facility] Comment:Range ok for MRI eGFR >60 >60 mL/min/1.7 3 m2 09/23/2019 4:04 PM CDT [facility] Blood BLOOD SPECIMEN / Unknown 09/23/2019 4:04 PM CDT 09/23/2019 4:04 PM CDT Provider Unknown LAB - POINT OF CARE ORDERABLES [address] [phone] [phone] documented in this encounter Visit Diagnoses Diagnosis Nonintractable headache, unspecified chronicity pattern, unspecified headache type documented in this encounter Administered Medications Inactive Administered Medications - up to 3 most recent administrations Medication Order MAR Action Action Date Dose Rate Site gadobutrol (GADAVIST) injection Intravenous, CONTRAST ONCE, Starting on Nancy 09/23/19 at 1608, Until 09/24/19 at 0132 $ Given - Contrast 09/23/2019 4:08 PM CDT 6 mL documented in this encounter Care Teams Couturiere Relationship Specialty Start Date End Date Amor Contreras MD PCP - General Internal Medicine 06/29/12 documented as of this encounter
--- OUTSIDE RECORDS SUMMARY | 2024-03-20 02:29 | XMS_ITS | Encounter Summary ---
Author Organization [facility] Address [facility] [place] [address] Care Team Providers Care Grain Cleaner Name Role Phone Amor Contreras MD Primary Care Provider [phone] Encounter Details Date Type Department Care Team (Late st Contact Info) Description 08/12/2012 Hospital Out[facility] - Orthopedics [address] [place] [phone] Feliberto Sandoval MD [address] [place] [address] OF ORTHOPEDIC SURGERY [place], [place] [id number] Social History Tobacco Use Types Packs/Day Years Used Date Smoking Tobacco: Never Assessed Sex and Gender Information Value Date Recorded Sex Assigned at Female 05/21/2021 12:05 PM INTERNET PROGRAMMER Gender Identity Female 05/21/2021 12:05 PM INTERNET PROGRAMMER Sexual Orientation Straight 05/21/2021 12 :05 PM INTERNET PROGRAMMER documented as of this encounter Plan of Treatment Not on file documented as of this encounter Visit Diagnoses Not on filedocumented in this encounter Care Teams Grain Cleaner Relationship Specialty Start Date End Date Amor Contreras MD PCP - General Internal Medicine 06/29/12 documented as of this encounter
--- OUTSIDE RECORDS SUMMARY | 2024-03-20 02:29 | XMS_ITS | Encounter Summary ---
Author Organization [facility] Address [address] [facility] [place] [address] Care Team Providers Care Maintenance Apprentice Name Role Phone Amor Contreras MD Primary Care Provider [phone] Encounter Details Date Type Department Care Team (Latest Contact Info) Description 02/03/2020 8:15 AM VISUAL JOURNALIST - 02/03/2020 8:46 AM [facility] Hospital Encounter [facility] [address] [place] [phone] Discharge Disposition: Home or Self Care Anesthesia Record Procedure Summary Procedure Name Responsible [...] Room 1253 [id number] [id number] An Stop Meds * Agents No agents on file. * Blood No blood administrations on file. Lines, Drains, and Airways Type Details Placement Removal Peripheral IV Date: 02/14/20; Time : 0910; Orientation: Left; Placed By: NS; Tolerance: Well 02/14/20 0910 by Claudette Barker RN 02/14/20 1430 by Rafael Woodruff RN ETT Date: 02/14/20; Time : 1126; Placed By: ERIN Pete; Vent: easy mask; Induction: Standard IV; Blade Type: Nieves; Blade Size: 2; Laryngoscopy View: Grade 1 (full cords); Tube: Endotracheal Tube; Placement: Oral; Tube Type: Cuffed-inflated; Tube Size(mm): 7 MM; Depth of Insertion: 20 CM; Measured From: teeth; Attempts: 1; Cuff Infated: Air; Verified By: Direct visualization, CO2 Monitor 02/14/20 1126 by Tia Dela Cruz APRN-CRNA 02/14/20 1253 by Tia Dela Cruz APRN-CRNA Procedural Site (Incision) 02/14/20; 1202; Nose; Bilateral sinuses packed with nexfoam and surgicel, drip pad applied. ; 02/14/20; 203902/14/20 1202 by Luly Parson RN 02/14/202039 by Generic, Auto Release documented in this encounter Social History Tobacco Use Types Packs/Day Years Used Date Smoking Tobacco: Never Smokeless Tobacco: Never Sex and Gender Information Value Date Recorded Sex Assigned at Female 05/21/2021 12:05 PM VISUAL JOURNALIST Gender Identity Female 05/21/2021 12:05 PM VISUAL JOURNALIST Sexual Orientation Straight 05/21/2021 12 :05 PM VISUAL JOURNALIST COVID-19 Exposure Response Date Recorded In the last month, have you been in contact with someone who was confirmed or suspected to have Coronavirus / COVID-19? No / Unsure 02/03/2020 8:07 AM VISUAL JOURNALIST documented as of this encounter Last Filed Vital Signs Vital Sign Reading Time Taken Comments Blood Pressure 106/60 02/03/2020 8:16 AM VISUAL JOURNALIST Pulse 72 02/03/2020 8:16 AM VISUAL JOURNALIST Temperature 36.2 ??C (97.2 ??F) 02/03/2020 8:16 AM CS T Respiratory Rate 16 02/03/2020 8:16 AM VISUAL JOURNALIST Oxygen Saturation 99% 02/03/2020 8:16 AM VISUAL JOURNALIST Inhaled Oxygen Concentration - - Weight 65.8 kg (145 lb) 02/03/2020 8:16 AM VISUAL JOURNALIST Height 160 cm (5' 3 ) 02/03/2020 8:16 AM VISUAL JOURNALIST Body Mass Index 25.69 02/03/2020 8:16 AM VISUAL JOURNALIST documented in this encounter Medications at Time [...] fluticasone propionate (FLONASE) 50 MCG/ACT nasal spray [place] 2 sprays into each nostril once daily [...] Procedure Name Priority Date/Time Associated Diagnosis Comments EKG 12-LEAD STAT 02/03/2020 8:51 AM VISUAL JOURNALIST Preop examination documented in this encounter Results * EKG 12-LEAD (02/03/2020 8:51 AM VISUAL JOURNALIST) Ventricular Rate 64 BPM [facility] Atrial Rate 64 BPM [facility] P-R Interval 130 ms [facility] QRS Duration ms 82 ms [facility] Q-T Interval ms 404 ms [facility] QTC Calculation (Bezet) 416 ms [facility] Calculated P Post 64 degrees [facility] Calculated R Post 64 degrees [facility] Calculated T Post 50 degrees [facility] Interpretation EKG NORMAL SINUS RHYTHM NORMAL ECG WHEN COMPARED WITH ECG OF 17-MAY-2015 07:42, PREMATURE ATRIAL COMPLEXES ARE NO LONGER PRESENT Confirmed by fellow Umang Cordoba ([id number]) on 02/14/2020 12:56:57 PM Confirmed by Kvng Ayon ([id number]) on 02/14/2020 11:16:07 PM [facility] 02/03/2020 8:51 AM VISUAL JOURNALIST 02/14/2020 11:16 PM VISUAL JOURNALIST Magdaleno Martinez DO ECG ORDERABLES [facility] documented in this encounter Visit Diagnoses Diagnosis Preop examination- Primary Preoperative examination, unspecified documented in this encounter Care Teams Maintenance Apprentice Relationship Specialty Start Date End Date Amor Contreras MD PCP - General Internal Medicine 06/29/12 documented as of this encounter
--- OUTSIDE RECORDS SUMMARY | 2024-03-20 02:29 | XMS_ITS | Encounter Summary ---
Author Organization [facility] Address [address] [facility] [place] [address] Care Team Providers Care Slip Operator Name Role Phone Amor Contreras MD Primary Care Provider [phone] Reason for Referral * Radiology Services (Routine) - Closed Specialty Diagnoses / Procedures Referred By Facundo randle Referred To Contact CT Scan Diagnoses Deviated nasal septum Mucous retention cyst of maxillary sinus Nasal polyps Procedures CT SINUS WO CONTRAST Ernesot Conley MD [address] [place], [place] [address] [address] [facility] [address] [place] [address] Referral ID Status Reason Start Date Expiration Date Visits Re quested Visits Authorized [id number] Closed 12/21/2019 12/20/2020 1 1 Reason for Visit * Radiology Services (Routine) - Closed Specialty Diagnoses / Procedures Referred By Facundo randle Referred To Contact CT Scan Diagnoses Deviated nasal septum Mucous retention cyst of maxillary sinus Nasal polyps Procedures CT SINUS WO CONTRAST Ernesto Conley MD [address] [place], [place] [address] [address] [facility] [address] [place] [address] Referral ID Status Reason Start Date Expiration Date Visits Re quested Visits Authorized [id number] Closed 12/21/2019 12/20/2020 1 1 Encounter Details Date Type Department Care Team (Latest Contact Info) Description 01/12/2020 12:15 PM CDT - 01/12/2020 11:59 PM CDT Hospital Encounter [facility] [address] [place] [phone] Ernesto Conley MD [address] [place] [address] Discharge Disposition: Home or Self Care Social History Tobacco Use Types Packs/Day Years Used Date Smoking Tobacco: Never Smokeless Tobacco: Never Sex and Gender Information Value Date Recorded Sex Assigned at Female 05/21/2021 12:05 PM TELEVISION ANNOUNCER Gender Identity Female 05/21/2021 12:05 PM TELEVISION ANNOUNCER Sexual Orientation Straight 05/21/2021 12 :05 PM TELEVISION ANNOUNCER COVID-19 Exposure Response Date Recorded In the last month, have you been in contact with someone who was confirmed or suspected to have Coronavirus / COVID-19? No / Unsure 01/12/2020 12:09 PM CDT documented as of this encounter Medications at Time of Discharge Medication Sig Dispensed Refills Start Date End Date calcium citrate (CITRACAL 950) 950 MG tablet Take 950 mg by mouth once daily cetirizine (ZYRTEC ALLERGY) 10 MG tablet Take 10 mg by mouth as needed fluticasone propionate (FLONASE) 50 MCG/ACT nasal spray [place] 2 sprays into each nostril once daily 16 g 3 12/21/2019 02/22/2020 documented as of this encounter Plan of Treatment Not on file documented as of this encounter Procedures Procedure Name Priority Date/Time Associated Diagnosis Comments CT SINUS WO CONTRAST Routine 01/12/2020 1:16 PM CDT Deviated nasal septum Mucous retention cyst of [...] PM . Ernesto Conley MD CT ORDERABLES documented in this encounter Visit Diagnoses Diagnosis Deviated nasal septum Mucous retention cyst of maxillary sinus Other diseases of nasal cavity and sinuses Nasal polyps documented in this encounter Care Teams Slip Operator Relationship Specialty Start Date End Date Amor Contreras MD PCP - General Internal Medicine 06/29/12 documented as of this encounter
--- OUTSIDE RECORDS SUMMARY | 2024-03-20 02:31 | XMS_ITS | Encounter Summary ---
Author Organization [facility] Address [address] [place] [address]. [place] [address] [place] [address] Care Team Providers Care Water Valve Repairer Name Role Phone Unavailable Primary Care Provider Unavailabl e Encounter Details Date Type Department Care Team (Late st Contact Info) Description 12/20/2013 Abstract [facility] [address] [place] [address] Julio Brewster MD [address] [place] [address] Social History Tobacco Use Types Packs/Day Years Used Date Smoking Tobacco: Never Assessed Comments Unknown Sex and Gender Information Value Date Recorded Sex Assigned at Not on file Legal Sex Female 5:40 PM CDT Gender Identity Not on file Sexual Orientation Not on file documented as of this encounter Plan of Treatment Not on file documented as of this encounter Visit Diagnoses Diagnosis Disorder of bone and cartilage Disorder of bone and cartilage, unspecified documented in this encounter
--- OUTSIDE RECORDS SUMMARY | 2024-03-20 02:31 | XMS_ITS | Encounter Summary ---
Author Organization [facility] Address [address] [place] [address]. [place] [address] [place] [address] Care Team Providers Care Manager It Security Name Role Phone Unavailable Primary Care Provider Unavailabl e Encounter Details Date Type Department Care Team (Late st Contact Info) Description 03/15/2014 Abstract [facility] [address] [place] [address] Aurelia Saenz MD Social History Tobacco Use Types Packs/Day Years Used Date Smoking Tobacco: Never Assessed Comments Unknown Sex and Gender Information Value Date Recorded Sex Assigned at Not on file Legal Sex Female 5:40 PM CDT Gender Identity Not on file Sexual Orientation Not on file documented as of this encounter Plan of Treatment Not on file documented as of this encounter Visit Diagnoses Diagnosis Vitamin D deficiency Unspecified vitamin D deficiency documented in this encounter
--- OUTSIDE RECORDS SUMMARY | 2024-03-20 02:31 | XMS_ITS | Clinical Summary ---
Author Organization [facility] Address [address] [place] [address]. [place] [address] [place] [address] Care Team Providers Care Sterile Processing Tech Name Role Phone Dax Vinson MD Primary Care Provider Allergies No known active allergies Medications amoxicillin-cla vulanate (AUGMENTIN) 875-125 MG tablet Take 1 tablet (875 mg total) by mouth 2 (two) times daily. 4 Suspended calcium citrate 950 (200 CA) MG Tab tablet Take 1 tablet (950 mg total) by mouth daily. Suspended alendronate (FOSAMAX) 70 MG tablet Take 1 tablet (70 mg total) by mouth once a week. 4 Suspended Active Problems Problem Noted Date Diagnosed Date Acute appendicitis 03/19/2024 Encounters Date Type Department Care Team Description 03/19/2024 5:07 PM [facility] Anesthesia Event [facility] Emergency Room [address] [place] [id number] Jaxson Pinzon CRNA 03/19/2024 3:29 PM [employer] [employer] - Present Hospital Encounter [facility] Medical/Surgical [address] [place] [id number] Noe Newman MD Mahtani, Andrew, MD Abdominal Pain 03/19/2024 Travel 03/15/2024 3:03 PM [employer] [employer] - 03/15/2024 11:59 PM [employer] [employer] Hospital Encounter [facility] [address] [place] [address] Veronica Rapp, MARINE DRILLER Discharge Disposition: Home or Self Care (Routine Discharge) 03/15/2024 Travel 12/23/2023 9:12 AM CDT - 12/23/2023 11:59 PM CDT Hospital Encounter [facility] [address] [place] [address] Veronica Rapp, MARINE DRILLER Discharge Disposition: Home or Self Care (Routine Discharge) 12/23/2023 Travel from Last 3 Months Family History Medical History Relation Comments Breast Cancer Neg Hx Social History Tobacco Use Types Packs/Day Years Used Date Smoking Tobacco: Never Smokeless Tobacco: Never Tobacco Cessation:Counseling Given: Not Answered Alcohol Use Standard Drinks/Week Comments Not Currently 0 (1 standard drink = 0.6 oz pur e alcohol) [facility] Utilities Answer Date Recorded In the past 12 months has [facility] [email or web address], gas, oil, or water [employer] threatened to shut off services in your home? No 03/19/2024 Humiliation, Afraid, Rape, and Kick questionnair e Answer Date Recorded Within the last year, have y ou been afraid of your partner or ex-partner? No 03/19/2024 Within the last year, have y ou been humiliated or emotionally abused in other ways by your partner or ex-partner? No Within the last year, have y ou been kicked, hit, slapped, or otherwise physically hurt by your partner or ex-partner? No 03/19/2024 Within the last year, have y ou been raped or forced to have any kind of sexual activity by your partner or ex-partner? No 03/19/2024 Overall Financial Resource Strain (CARDIA) Answe r Date Recorded How hard is it for you to pa y for the very basics like food, housing, medical care, and heating? Not hard at all 03/19/2024 Hunger Vital Sign Answer Date Recorded Within the past 12 months, y ou worried that your food would run out before you got the money to buy more. Never true 03/19/19 25 Within the past 12 months, t he food you bought just didn't last and you didn't have money to get more. Never true 03/19/2024 PRAPARE - Transportation Answer Date Re corded In the past 12 months, has l ack of transportation kept you from medical appointments or from getting medications? No 05/2024 In the past 12 months, has l ack of transportation kept you from meetings, work, or from getting things needed for daily living? No 03/19/2024 Housing Stability Vital Sign Answer Khang e Recorded In the last 12 months, was t here a time when you were not able to pay the mortgage or rent on time? No 03/19/2024 In the past 12 months, how m any times have you moved where you were living? 1 03/19/2024 At any time in the past 12 m [facility], were you homeless or living in a [place] health care facility (including now)? No 03/19/2024 Comments Unknown Sex and Gender Information Value Date Recorded Sex Assigned at Not on file Legal Sex Female 5:40 PM CDT Gender Identity Not on file Sexual Orientation Not on file Last Filed Vital Signs Vital Sign Reading Time Taken Comments Blood Pressure 92/41 03/19/2024 11:00 PM [facility] [facility] Pulse 66 03/19/2024 11:00 PM [employer] Temperature 36.9 ??C (98.4 ??F) 03/19/2024 11:[address] Respiratory Rate 16 03/19/2024 11:00 PM [employer] Oxygen Saturation 98% 03/19/2024 11:00 PM [employer] Inhaled Oxygen Concentration - - Weight 57.2 kg (126 lb) 03/19/2024 6:47 PM [employer] Height 160 cm (5' 3 ) 03/19/2024 6:47 PM [employer] Body Mass Index 22.32 03/19/2024 6:47 PM [employer] Plan of Treatment Health Maintenance Due Date Last Done Comments Colorectal Cancer Screening Colonoscopy (10 Years) 1958 Hepatitis C 1976 DTaP, Tdap and Td Vaccines ( 1 - Tdap) 1977 Zoster Vaccines (1 of 2) 2008 Pneumococcal Vaccine: 65+ Years (1 of 1 - PCV) 07/09/2023 COVID-19 Vaccine (3 - 2023-2 5 season) 2023 04/11/2020, 03/21/2020 Influenza Adult (#1) 2023 01/05/2020 Mammogram Screening 12/22/2025 12/23/2023, 09/16/2022, 02/03/2019 RSV Immunization or 60+ Years (1 - 1-dose 75+ series) 2033 Dexa Scan (General) Completed 12/23/2023 Meningococcal Vaccine Aged Out No jonathan jone eligible based on patient's age to complete this topic Pneumococcal Vaccine: Pediatrics (0 to 5 Years) and At-Risk Patients (6 to 64 Years) Aged Out No longer eligible b ased on patient's age to complete this topic RSV Immunizations Under 20 Months Aged Out No longer eligible b ased on patient's age to complete this topic Procedures * The patient is currently admitted. The information in this section might not be complete until the patient is discharged. Procedure Name Priority Date/Time Associated Diagnosis Comments HC URINALYSIS AUTO W/O MICRO STAT 03/19/2024 6:21 [address] [facility] [employer] CT ABD+PEL W CON STAT 03/19/2024 4:29 PM [employer] LIPASE STAT 03/19/2024 3:40 PM [employer] COMPREHENSIVE METABOLIC PANEL STAT 03/19/2024 3:40 PM [employer] CBC W/DIFF AUTOMATED STAT 03/19/2024 3:40 PM [employer] US ABD LIMITED STAT 03/15/2024 3:59 PM [employer] Right upper quadrant pain MG SCREENING W YAZ VALERIA DIGI Routine 12/23/2023 10:01 AM CDT Encounter for screening mammogram for malignant neoplasm of breast BONE DENSITY/DEXA Routine 12/23/2023 9:4 8 AM CDT Other specified disorders of bone density and structure, unspecified site from Last 3 Months Results * (ABNORMAL) URINALYSIS (03/19/2024 6:21 PM [employer]) COLOR (U) LIGHT YELLOW 03/19/2024 6:35 PM [facility] TRANSPARENCY CLEAR 03/19/2024 6:35 PM [facility] SPECIFIC GRAVITY (U) 1.010 1.002 - 1.030 03/19/2024 6:35 PM [facility] U PH 6.0 4.5 - 8.0 03/19/2024 6:35 PM [facility] LEUKOCYTES (U) NEGATIVE NEGATIVE 03/19/2024 6:35 PM [facility] NITRITES NEGATIVE NEGATIVE 03/19/2024 6:35 PM [facility] PROTEIN RANDOM (U) NEGATIVE NEGATIVE 03/19/2024 6:35 PM [facility] GLUCOSE (U) NEGATIVE NEGATIVE 03/19/2024 6:35 PM [facility] KETONES MG/DL (U) 1+(A) NEGATIVE 03/19/2024 6:35 PM [facility] UROBILINOGEN NORMAL NORMAL EU/DL 03/19/2024 6:35 PM [facility] BILIRUBIN (U) NEGATIVE NEGATIVE 03/19/2024 6:35 PM [facility] BLOOD (U) NEGATIVE NEGATIVE 03/19/2024 6:35 PM [facility] WBC/HPF MICROSCOPIC ANALYSIS NOT DONE ON URINES WITH NEGATIVE BIOCHEMICAL TESTS /HPF 03/19/2024 6:35 PM [facility] URINE SPECIMEN OBTAINED BY CLEAN CATCH PROCEDURE / Unknown 03/19/2024 6:21 PM [employer] us Noe Newman MD URINE ORDERABLES Final Result [facility] [address] [place] [address], [place] [phone] * CT ABD+PEL W IV CON ONLY (03/19/2024 4:29 PM [employer]) Anatomical Region Laterality Modality Abdomen Computed Tomogra phy 03/19/2024 4:40 PM [employer] Impressions 03/19/2024 4:51 PM [employer] IMPRESSION: 1. Acute appendicitis without perforation or fluid collection. 2. Probable associated small bowel ileus without bowel obstruction. 3. Moderate colonic stool burden. 4. Indeterminate low-density right renal lesion. Recommend follow-up contrast-enhanced multiphase renal MRI versus CT when clinically appropriate as neoplastic process is not excluded. 5. Uncomplicated left hepatic cyst and scattered subcentimeter low-density hepatic and renal lesions are statistically benign and require no specific routine imaging follow-up per consensus guidelines. 6. Trace biliary sludge versus tiny calculi without findings of cholecystitis. 7. Sequelae remote granulomatous disease with 3 mm noncalcified nodule posteriorly within the basilar right lower lobe, statistically benign by size criteria and requiring no specific routine imaging follow-up are consensus guidelines. If patient is at high risk for pulmonary malignancy a follow-up chest CT can be considered in 12 months. Ordered By: NOE NEWMAN Interpreted By: Damaso Abdi, 03/19/2024 4:40 PM Narrative 03/19/2024 4:51 PM [employer] [facility] [address] [place] [address] EXAMINATION: CT ABD+PEL W CON INDICATIONS: RUQ PAIN COMPARISON: NONE TECHNIQUE: Contiguous axial CT images through the abdomen and pelvis following the uneventful intravenous administration of 80 mL Isovue-370 iodinated contrast with coronal and sagittal reformats. A dose lowering technique was used for this procedure, which may include, but is not limited to, dose reduction technique, automated exposure control, the use of iterative reconstruction, and ALARA (As Low As Reasonably Achievable) / Image Gently techniques. FINDINGS: Calcified granuloma medially within the left lower lobe. Noncalcified 3 mm solid nodule posteriorly within the right lower lobe (axial image 23). No consolidation, effusion, or suspicious pulmonary nodule within the visualized lung bases. The visualized cardiomediastinal structures are within normal limits. The appendix is dilated to a short axis diameter of approximately 11 mm. Hyperenhancement of the appendiceal medellin without discrete perfusion defect or pneumatosis. Prominent pericecal inflammatory stranding throughout the right lower quadrant without pneumoperitoneum or discrete fluid collection. Few shotty reactive right lower quadrant mesenteric lymph nodes. No abnormal small bowel dilatation. The terminal ileum is within normal limits. Mild fluid-filled distention throughout the small bowel with scattered small bowel air-fluid levels. Moderate stool burden throughout the colon most pronounced proximally. No ascites. No mesenteric or retroperitoneal adenopathy. The liver, spleen, pancreas, and adrenal glands are normal in morphology and attenuation without suspicious lesion. Smoothly marginated homogenously fluid attenuating 1.6 cm cyst within the left hepatic lobe. Few additional scattered subcentimeter low-density hepatic lesions. Smooth gallbladder distention without small amount of intraluminal hyperdensity dependently. No discrete gallbladder wall thickening or pericholecystic inflammatory changes. No significant pancreaticobiliary ductal dilatation or peripancreatic inflammatory changes. Symmetric renal cortical enhancement without significant perinephric stranding or perfusion defect. Small extrarenal pelves bilaterally. No obstructing renal calculus or hydronephrosis. Smoothly marginated noncalcified near fluid attenuating 1.3 cm hypodensity anteromedially at the right interpolar kidney. Additional subcentimeter low-density lesions bilaterally are too small to fully characterize by any imaging modality, but statistically benign. No suspicious renal mass. The ureters are normal in caliber without intraluminal calculus or surrounding inflammatory change. The urinary bladder is well distended without focal wall thickening, perivesicular stranding, or intraluminal calculus. The uterus is slightly atrophic without localizing abnormality. No suspicious adnexal lesion. No significant free fluid within the dependent pelvis. Scattered calcified pelvic phleboliths. The aorta and IVC are normal in caliber. No suspicious superficial soft tissue mass or fluid collection. Mild multilevel spondylosis and discogenic disease with grade 1 anterolisthesis of L4 on L5, degenerative in nature. No acute or aggressive osseous lesion. Procedure Note Damaso Abdi MD - 03/19/2024 [facility] [address] [place] [address] EXAMINATION: CT ABD+PEL W CON INDICATIONS: RUQ PAIN COMPARISON: NONE TECHNIQUE: Contiguous axial CT images through the abdomen and pelvisfollowing the uneventful intravenous administration of 80 mL Isovue-370iodinated contrast with coronal and sagittal reformats. A dose lowering technique was used for this procedure, which may include,but is not limited to, dose reduction technique, automated exposurecontrol, the use of iterative reconstruction, and ALARA (As Low AsReasonably Achievable) / Image Gently techniques. FINDINGS: Calcified granuloma medially within the left lower lobe. Noncalcified 3 mm solid nodule posteriorly within the right lower lobe(axial image 23). No consolidation, effusion, or suspicious pulmonary nodule within thevisualized lung bases. The visualized cardiomediastinal structures are within normal limits. The appendix is dilated to a short axis diameter of approximately 11 mm. Hyperenhancement of the appendiceal medellin without discrete perfusiondefect or pneumatosis. Prominent pericecal inflammatory stranding throughout the right lowerquadrant without pneumoperitoneum or discrete fluid collection. Few shotty reactive right lower quadrant mesenteric lymph nodes. No abnormal small bowel dilatation. The terminal ileum is within normal limits. Mild fluid-filled distention throughout the small bowel with scatteredsmall bowel air-fluid levels. Moderate stool burden throughout the colon most pronounced proximally. No ascites. No mesenteric or retroperitoneal adenopathy. The liver, spleen, pancreas, and adrenal glands are normal in morphologyand attenuation without suspicious lesion. Smoothly marginated homogenously fluid attenuating 1.6 cm cyst within theleft hepatic lobe. Few additional scattered subcentimeter low-density hepatic lesions. Smooth gallbladder distention without small amount of intraluminalhyperdensity dependently. No discrete gallbladder wall thickening or pericholecystic inflammatorychanges. No significant pancreaticobiliary ductal dilatation or peripancreaticinflammatory changes. Symmetric renal cortical enhancement without significant perinephricstranding or perfusion defect. Small extrarenal pelves bilaterally. No obstructing renal calculus or hydronephrosis. Smoothly marginated noncalcified near fluid attenuating 1.3 cm hypodensityanteromedially at the right interpolar kidney. Additional subcentimeter low-density lesions bilaterally are too small tofully characterize by any imaging modality, but statistically benign. No suspicious renal mass. The ureters are normal in caliber without intraluminal calculus orsurrounding inflammatory change. The urinary bladder is well distended without focal wall thickening,perivesicular stranding, or intraluminal calculus. The uterus is slightly atrophic without localizing abnormality. No suspicious adnexal lesion. No significant free fluid within the dependent pelvis. Scattered calcified pelvic phleboliths. The aorta and IVC are normal in caliber. No suspicious superficial soft tissue mass or fluid collection. Mild multilevel spondylosis and discogenic disease with grade 1anterolisthesis of L4 on L5, degenerative in nature. No acute or aggressive osseous lesion. IMPRESSION: 1. Acute appendicitis without perforation or fluid collection. 2. Probable associated small bowel ileus without bowel obstruction. 3. Moderate colonic stool burden. 4. Indeterminate low-density right renal lesion. Recommend [id number] multiphase renal MRI versus CT when clinicallyappropriate as neoplastic process is not excluded. 5. Uncomplicated left hepatic cyst and scattered subcentimeter low- densityhepatic and renal lesions are statistically benign and require no specificroutine imaging follow-up per consensus guidelines. 6. Trace biliary sludge versus tiny calculi without findings ofcholecystitis. 7. Sequelae remote granulomatous disease with 3 mm noncalcified noduleposteriorly within the basilar right lower lobe, statistically benign bysize criteria and requiring no specific routine imaging follow-up areconsensus guidelines. If patient is at high risk for pulmonary malignancya follow-up chest CT can be considered in 12 months. Ordered By: NOE NEWMAN Interpreted By: Damaso Abdi, 03/19/2024 4:40 PM us Noe Newman MD CT Final Result * (ABNORMAL) COMPREHENSIVE METABOLIC PANEL (03/19/2024 3:40 PM [facility] [facility] [employer]) GLUCOSE 92 70 - 99 MG/DL 03/19/2024 4:15 PM [employer] [facility] BUN 9 7 - 18 MG/DL 03/19/2024 4:15 PM [employer] [facility] CREATININE S/P/B 0.60 0.55 - 1.02 MG/DL 03/19/2024 4:15 PM [employer] [facility] SODIUM S/P/B 139 136 - 145 MMOL/L 03/19/2024 4:15 PM [facility] POTASSIUM S/P/B 3.4(L) 3.5 - 5.1 MMOL/L 03/19/2024 4:15 PM [facility] CHLORIDE S/P/B 102 100 - 108 MMOL/L 03/19/2024 4:15 PM [facility] CO2 27.1 21 - 32 MMOL/L 03/19/2024 4:15 PM [facility] CALCIUM S/P/B 8.7 8.5 - 10.1 MG/DL 03/19/2024 4:15 PM [facility] BILIRUBIN TOTAL S/P/B 0.3 0.2 - 1.2 MG/DL 03/19/2024 4:15 PM [facility] Comment: THIS ASSAY IS NOT RECOMMENDED FOR PATIENTS UNDERGOING TREATMENT WITH ELTROMBOPAG DUE TO THE POTENTIAL FOR FALSELY ELEVATED RESULTS. TOTAL PROTEIN S/P/B 7.4 6.4 - 8.2 G/DL 03/19/2024 4:15 PM [facility] ALBUMIN S/P/B 3.0(L) 3.4 - 5.0 G/DL 03/19/2024 4:15 PM [facility] AST 22 15 - 37 U/L 03/19/2024 4:15 PM [facility] ALT 31 14 - 55 U/L 03/19/2024 4:15 PM [facility] ALKALINE PHOSPHATASE S/P/B 93 50 - 136 U/L 03/19/2024 4:15 PM [facility] ANION GAP 9.9 5 - 15 MMOL/L 03/19/2024 4:15 PM [facility] BUN CREATININE RATIO 15.0 6 - 26 03/19/2024 4:15 PM [facility] A/G RATIO 0.7(L) 1.0 - 2.0 RATIO 03/19/2024 4:15 PM [facility] GFR ESTIMATE >90 >90 ML/MIN/1.7 3 M2 03/19/2024 4:15 PM [facility] Comment: NOTE: eGFR is not calculated for patients <18 years of age. This is an estimated GFR calculation using the new CKD EPI creatinine equation without race and so does not require a correction factor for race. This estimated GFR should not be used for calculating drug doses. 03/19/2024 3:40 PM [employer] Noe Newman MD LABORATORY Final Result [facility] [address] [place] [address], * (ABNORMAL) CBC W/DIFF AUTOMATED (03/19/2024 3:40 PM [employer]) WBC 8.07 4.50 - 11.00 x10'3/uL 03/19/2024 4:04 PM [facility] RBC 4.34 4.20 - 5.40 x10'6/uL 03/19/2024 4:04 PM [facility] HGB 12.3 12.0 - 16.0 G/DL 03/19/2024 4:04 PM [facility] HCT 38.0 38.0 - 48.0 % 03/19/2024 4:04 PM [facility] MCV 87.6 81.0 - 99.0 FL 03/19/2024 4:04 PM [facility] MCH 28.3 27.0 - 31.0 PG 03/19/2024 4:04 PM [facility] MCHC 32.4 32.0 - 36.0 G/DL 03/19/2024 4:04 PM [facility] RDW 12.7 11.5 - 14.5 % 03/19/2024 4:04 PM [facility] PLT 446(H) 130 - 400 x10'3/uL 03/19/2024 4:04 PM [facility] MPV 8.6(L) 9.3 - 12.2 FL 03/19/2024 4:04 PM [facility] SEG NEUTROPHILS 59 % 4:25 PM [facility] LYMPHOCYTES 26 % 03/19/2024 4:25 PM [facility] MONOCYTES 11 % 03/19/2024 4:25 PM [facility] EOSINOPHILS 4 % 03/19/2024 4:25 PM [facility] ABS. NEUTROPHILS TOTAL 4.76 1.80 - 7.70 x10'3/uL 03/19/2024 4:25 PM [facility] ABS. LYMPHOCYTES 2.10 1.00 - 4.80 x10'3/uL 03/19/2024 4:25 PM [facility] ABS. MONOCYTES 0.89(H) 0.24 - 0.86 x10'3/uL 03/19/2024 4:25 PM [facility] ABS. EOSINOPHILS 0.32 0.04 - 0.36 x10'3/uL 03/19/2024 4:25 PM [facility] PLT MORPH. GIANT PLATELETS 03/19/2024 4:25 PM [facility] RBC MORPHOLOGY NORMAL 03/19/2024 4:25 PM [facility] WBC MORPHOLOGY SMUDGE CELLS 03/19/19 4:25 PM [facility] 03/19/2024 3:40 PM [employer] us Noe Newman MD LABORATORY Final Result [facility] [address] [place] [address], [place] [phone] * LIPASE (03/19/2024 3:40 PM [employer]) LIPASE 39 16 - 77 UNITS/L 03/19/2024 4:15 PM [employer] [facility] 03/19/2024 3:40 PM [employer] us Noe Newman MD LABORATORY Final Result Performing Organization Address [facility] Co de Phone Number [facility] [address] [place] [address], [place] [phone] * US ABD LIMITED (03/15/2024 3:59 PM [employer]) Anatomical Region Laterality Modality Abdomen Ultrasound 03/15/2024 4:08 PM [employer] Impressions 03/15/2024 4:12 PM [employer] =====IMPRESSION:===== ?? 1. ??Echogenic material within the gallbladder with some patient tenderness in this region on examination according to technologist. No gallbladder wall thickening is seen however. Findings are somewhat equivocal. Correlate clinically. HIDA scan or other additional evaluation could be considered. Ordered By: VERONICA RAPP Interpreted By: Julio Sorensen MD, 03/15/2024 4:08 PM Narrative 03/15/2024 4:12 PM [employer] [facility] [address] [place] [address] EXAMINATION: Limited Abdomen Ultrasound: RUQ EXAM DATE/TIME: 03/15/2024 3:29 PM REASON FOR EXAM: ??RUQ ? COMPARISON: TECHNIQUE: An ultrasound examination of the RUQ was performed FINDINGS: Pancreas: Partially visualized with normal echogenicity. Liver: Normal echogenicity in its viewed portions. ?? Portal vein: Spectral analysis reveals normal hepatopetal flow. Inferior vena cava: Normal in its viewed portions. Gallbladder: Echogenic material internally within the gallbladder is seen diffusely. Sludge and/or small stones are possible. No gallbladder wall thickening or definite adjacent fluid is seen. Patient does have some probe tenderness/pain according to technologist. Gallbladder is slightly distended. ? Common bile duct: 0.5 centimeters Right kidney: ??10.6 cm X 4.3 cm X 4.5 cm.. Small internal cysts is possible measuring 1.1 cm. No hydronephrosis Other findings: No ascites. Procedure Note Julio Sorensen MD - 03/15/2024 [facility] [address] [facility] [place] [address] EXAMINATION: Limited Abdomen Ultrasound: RUQ EXAM DATE/TIME: 03/15/2024 3:29 PM REASON FOR EXAM: RUQ COMPARISON: TECHNIQUE: An ultrasound examination of the RUQ was performed FINDINGS: Pancreas: Partially visualized with normal echogenicity. Liver: Normal echogenicity in its viewed portions. Portal vein: Spectral analysis reveals normal hepatopetal flow. Inferior vena cava: Normal in its viewed portions. Gallbladder: Echogenic material internally within the gallbladder is seendiffusely. Sludge and/or small stones are possible. No gallbladder wallthickening or definite adjacent fluid is seen. Patient does have someprobe tenderness/pain according to technologist. Gallbladder is slightlydistended. Common bile duct: 0.5 centimeters Right kidney: 10.6 cm X 4.3 cm X 4.5 cm.. Small internal cysts ispossible measuring 1.1 cm. No hydronephrosis Other findings: No ascites. =====IMPRESSION:===== 1. Echogenic material within the gallbladder with some patient tendernessin this region on examination according to technologist. No gallbladderwall thickening is seen however. Findings are somewhat equivocal.Correlate clinically. HIDA scan or other additional evaluation could beconsidered. Ordered By: VERONICA R LOEPKER Interpreted By: Julio Sorensen MD, 03/15/2024 4:08 PM Veronica Rapp MARINE DRILLER ULTRASOUND Final Resul t * MG SCREENING W YAZ VALERIA DIGI (12/23/2023 10:01 AM CDT) Anatomical Region Laterality Modality Breast Bilateral Mammography 12/23/2023 5:35 PM CDT Impressions 12/25/2023 10:46 AM CDT ===== IMPRESSION: ===== 1. ??Stable mammographic appearance with no new findings to suggest malignancy in either breast. Assessment: ACR BI-RADS 2 - BENIGN FINDING(S) Recommendation: 1:Routine Screening Bilateral Comments: Ordered By: VERONICA RAPP Interpreted By: Brenda Sen, 12/23/2023 5:35 PM Narrative 12/25/2023 10:46 AM CDT [facility] [id number] [place] [address] EXAMINATION: Digital bilateral screening mammogram with 3-D tomosynthesis EXAM DATE/TIME: 12/23/2023 9:22 AM REASON FOR EXAM: ??Screening ? Benign left breast biopsy 40 years ago. COMPARISON: 02/03/2019. 09/16/2022 Technique: Digital screening mammography of both breasts was performed in addition to 3-D Tomosynthesis technique. This study was read with the assistance of a computer-aided detection system. Tissue density: There are scattered areas of fibroglandular density. Findings: Similar slightly asymmetric tissue within the upper outer aspect of the right breast in its midportion. There is no new focal asymmetry, dominant mass lesion, area of skin thickening, or cluster of suspicious appearing calcifications in either breast to suggest malignancy. us Veronica Rapp MARINE DRILLER MAMMO Final Resul t * BONE DENSITY/DEXA (12/23/2023 9:48 AM CDT) Anatomical Region Laterality Modality Bone Bone Density 12/26/2023 6:13 AM CDT Impressions 12/26/2023 6:14 AM CDT IMPRESSION: WHO Classification: Osteoporosis RECOMMENDATIONS: All patients should ensure an adequate intake of dietary calcium and vitamin D. The NOF recommend adults under the age of 50 need 1000 mg of calcium and 400-800 IU of vitamin D daily. Effective therapy for the prevention and treatment of osteoporosis include bisphosphonates. Follow-up: People with diagnosed cases of osteoporosis or at high risk for fracture should have regular bone mineral density test. For patients eligible for Medicare, routine testing is allowed once every 2 years. Testing frequency can be increased to one year for patients who have rapidly progressing disease, those who are receiving or discontinuing medical therapy to restore bone mass, or have additional risk factors. Referred By: VERONICA RAPP Interpreted By: Saurabh Goldstein MD, 12/26/2023 6:13 AM Narrative 12/26/2023 6:14 [place] [address] EXAMINATION: BONE DENSITY/DEXA INDICATIONS: Other specified disorders of bone density and structure, unspecified site TECHNIQUE: DEXA bone mineral density evaluation was performed in the AP projection over the lumbar spine and both hips utilizing standard imaging techniques. ASSESSMENT: The BMD measured at the AP spine L1-L4 is 0.775 g/cm? with a T-score of -2.5. ?? The BMD measured at the left femoral neck is 0.587 g/cm? with a T-score of -2.4. The BMD measured at the left hip is 0.665 g/cm? with a T-score of -2.3. ?? The BMD measured at the right femoral neck is 0.556 g/cm? with a T-score of - 2.6. ?? The BMD measured at the right hip is 0.690 g/cm? with a T-score of -2.1. ?? FRAX 10-year fracture risk: Not reported because from T scores are at or below -2.5. Procedure Note Saurabh Goldstein MD - 12/26/2023 [facility] [address] [place] [address] EXAMINATION: BONE DENSITY/DEXA INDICATIONS: Other specified disorders of bone density and structure,unspecified site TECHNIQUE: DEXA bone mineral density evaluation was performed in the APprojection over the lumbar spine and both hips utilizing standard imagingtechniques. ASSESSMENT: The BMD measured at the AP spine L1-L4 is 0.775 g/cm? with a T-score of-2.5. The BMD measured at the left femoral neck is 0.587 g/cm? with a T-score of-2.4. The BMD measured at the left hip is 0.665 g/cm? with a T-score of -2.3. The BMD measured at the right femoral neck is 0.556 g/cm? with a T-scoreof -2.6. The BMD measured at the right hip is 0.690 g/cm? with a T-score of -2.1. FRAX 10-year fracture risk: Not reported because from T scores are at or below -2.5. IMPRESSION: WHO Classification: Osteoporosis RECOMMENDATIONS: All patients should ensure an adequate intake of dietary calcium andvitamin D. The NOF recommend adults under the age of 50 need 1000 mg ofcalcium and 400-800 IU of vitamin D daily. Effective therapy for theprevention and treatment of osteoporosis include bisphosphonates. Follow-up: People with diagnosed cases of osteoporosis or at high risk for fractureshould have regular bone mineral density test. For patients eligible forMedicare, routine testing is allowed once every 2 years. Testing frequencycan be increased to one year for patients who have rapidly progressingdisease, those who are receiving or discontinuing medical therapy torestore bone mass, or have additional risk factors. Referred By: VERONICA RAPP Interpreted By: Saurabh Goldstein MD, 12/26/2023 6:13 AM us Veronica R Johnker MARINE DRILLER DEXA Final Resul t from Last 3 Months Insurance Member Subscriber Plan / Payer (Ef fective 2023-Present) Name:Colette Lopez Relation to Subscriber:Self Name:Colette Lopez Payer ID:[id number] (NAIC) Type:Not on file Address: [place] [phone] Advance Directives Documents on File Type Date Recorded Patient Virtual Recruiter Expl anation Advance Directives and Living Will 11/11/2014 12:00 AM ADVANCED DIRECTIVES * Full Code (Latest Code Status on File) Date Activated Date Inactivated Comments 03/19/2024 6:44 PM Care Teams Sterile Processing Tech Relationship Specialty [place] [address] [facility] [address] [place] [address] PCP - General INTERNAL MEDICINE 01/20/24
--- OUTSIDE RECORDS SUMMARY | 2024-03-20 02:31 | XMS_ITS | Encounter Summary ---
Author Organization [facility] Address [address] [place] [address]. [place] [address] [place] [address] Care Team Providers Care Cryptographic Center Specialist Name Role Phone Unavailable Primary Care Provider Unavailabl e Encounter Details Date Type Department Care Team (Late st Contact Info) Description 08/23/2011 Abstract [facility] [address] [place] [address] Judson Judd MD [address] [place] [address] [place], [place] [id number] Social History Tobacco Use Types Packs/Day Years Used Date Smoking Tobacco: Never Assessed Comments Unknown Sex and Gender Information Value Date Recorded Sex Assigned at Not on file Legal Sex Female 5:40 PM CDT Gender Identity Not on file Sexual Orientation Not on file documented as of this encounter Plan of Treatment Not on file documented as of this encounter Visit Diagnoses Diagnosis Other and unspecified noninfectious gastroenteritis and colitis documented in this encounter
--- OUTSIDE RECORDS SUMMARY | 2024-03-20 02:31 | XMS_ITS | Encounter Summary ---
Author Organization [facility] Address [address] [place] [address]. [place] [address] [place] [address] Care Team Providers Care Instructor Modeling Name Role Phone Unavailable Primary Care Provider Unavailabl e Encounter Details Date Type Department Care Team (Late st Contact Info) Description 06/27/2012 [facility] Emergency Room [address] [place] [address] Jonathan Conde Jr., MD [address] [phone] Social History Tobacco Use Types Packs/Day Years Used Date Smoking Tobacco: Never Assessed Comments Unknown Sex and Gender Information Value Date Recorded Sex Assigned at Not on file Legal Sex Female 5:40 PM CDT Gender Identity Not on file Sexual Orientation Not on file documented as of this encounter Plan of Treatment Not on file documented as of this encounter Visit Diagnoses Diagnosis Sprain and strain of knee and leg Sprain and strain of unspecified site of knee and leg documented in this encounter
--- OUTSIDE RECORDS SUMMARY | 2024-03-20 02:31 | XMS_ITS | Encounter Summary ---
Author Organization [facility] Address [address] [place] [address]. [place] [address] [place] [address] Care Team Providers Care Sap Pi Developer Name Role Phone Unavailable Primary Care Provider Unavailabl e Encounter Details Date Type Department Care Team (Late st Contact Info) Description 11/11/2014 Abstract [facility] Surgical Services [address] [place], [place] [id number] Julio Wu MD [address] [place] [phone] Social History Tobacco Use Types Packs/Day Years [...]
--- OUTSIDE RECORDS SUMMARY | 2024-03-20 02:31 | XMS_ITS | Encounter Summary ---
Author Organization [facility] Address [address] [place] [address]. [place] [address] [place] [address] Care Team Providers Care Sleep Tech Name Role Phone Unavailable Primary Care Provider Unavailabl e Encounter Details Date Type Department Care Team (Late st Contact Info) Description 06/08/2012 Abstract [facility] [address] [place] [address] Amor Contreras MD [address] [place] [address] Social History Tobacco Use Types Packs/Day Years Used Date Smoking Tobacco: Never Assessed Comments Unknown Sex and Gender Information Value Date Recorded Sex Assigned at Not on file Legal Sex Female 5:40 PM CDT Gender Identity Not on file Sexual Orientation Not on file documented as of this encounter Plan of Treatment Not on file documented as of this encounter Visit Diagnoses Diagnosis Symptomatic menopausal or female climacteric states documented in this encounter
--- OUTSIDE RECORDS SUMMARY | 2024-03-20 02:31 | XMS_ITS | Encounter Summary ---
Author Organization [facility] Address [address] [place] [address]. [place] [address] [place] [address] Care Team Providers Care Vocational Rehabilitation Technician Name Role Phone Unavailable Primary Care Provider Unavailabl e Reason for Visit * Imaging (Routine) - Closed Specialty Diagnoses / Procedures Referred By Contac t Referred To Contact RADIOLOGY Diagnoses Breast cancer screening by mammogram Procedures MG SCREENING W YAZ VALERIA DIGI Amor Contreras MD [address] [place] [address] Phone: tel: fax: Referral ID Status Reason Start Date Expiration Date Visits Re quested Visits Authorized [id number] Closed 01/13/2019 02/14/2020 1 1 Encounter Details Date Type Department Care Team (Latest Contact Info) Description 02/03/2019 10:29 AM CLIENT SUPPORT ANALYST - 02/03/2019 11:59 PM [facility] Hospital Encounter [facility] Mammography [address] [place] [address] Amor Contreras MD [address] [place] [phone] Discharge Disposition: Home or Self Care (Routine Discharge) Social History Tobacco Use Types Packs/Day Years [...] Procedure Name Priority Date/Time Associated Diagnosis Comments MG SCREENING W YAZ VALERIA DIGI Routine 02/03/2019 10:49 AM CLIENT SUPPORT ANALYST Breast cancer screening by mammogram documented in this encounter Results * MG SCREENING W YAZ VALERIA DIGI (02/03/2019 10:49 AM CLIENT SUPPORT ANALYST) Anatomical Region Laterality Modality Breast Bilateral Mammography 02/03/2019 11:2 7 AM CLIENT SUPPORT ANALYST Impressions 02/03/2019 5:46 PM CLIENT SUPPORT ANALYST IMPRESSION: 1. No mammographic evidence of malignancy. ??Recommend annual mammogram. 2. BI-RADS Category 2 - benign findings. 3. TISSUE TYPE: Category B - There are areas of scattered fibroglandular density. MQSA BI-RADS Categories: Category 0 - needs additional imaging evaluation. Category 1 - negative. Category 2 - benign findings. Category 3 - probably benign findings, but short interval follow-up ?is recommended. Category 4 - suspicious abnormality and biopsy should be considered ?though the lesion may well be benign. Category 5 - highly suggestive of malignancy and appropriate action ?should be taken. ?? A) ??A negative report should not delay a biopsy if a dominant or ?clinically suspicious mass is present. B) ??Adenosis and dense breasts may obscure an underlying neoplasm. C) ??Study interpreted with computer aided detection. Interpreted By: Valente Kevin, 02/03/2019 11:27 AM Narrative 02/03/2019 5:46 PM CLIENT SUPPORT ANALYST IMAGING STUDIES: ??MG SCREENING W YAZ VALERIA DIGI ? DATE: ??02/03/2019 10:35 AM HISTORY: ??SCREENING ?58-year-old female for screening study. COMPARISON: Screening mammogram 11/26/2017, 04/29/2015, and 11/26/2013. DISCUSSION: Bilateral digital screening mammogram with CAD. ??Standard mammographic views with 2-D imaging and 3-D tomography. Scattered fibroglandular tissue. Benign calcifications. No mammographically suspicious mass, microcalcification, or architectural distortion. us Amor Contreras MD MAMMO Final Result documented in this encounter Visit Diagnoses Not on filedocumented in this encounter
--- OUTSIDE RECORDS SUMMARY | 2024-03-20 02:31 | XMS_ITS | Encounter Summary ---
Author Organization [facility] Address [address] [place] [address]. [place] [address] [place] [address] Care Team Providers Care Supervisor Sample Preparation Name Role Phone Unavailable Primary Care Provider Unavailabl e Encounter Details Date Type Department Care Team (Late st Contact Info) Description 11/09/2014 Abstract [facility] Cardiopulmonary Services [address] [place], [place] [phone] Julio Wu MD [address] [place] [address] Social History Tobacco Use Types Packs/Day [...] as of this encounter Visit Diagnoses Diagnosis Pre-operative examination Preoperative examination, unspecified documented in this encounter
--- OUTSIDE RECORDS SUMMARY | 2024-03-20 02:31 | XMS_ITS | Encounter Summary ---
Author Organization [facility] Address [address] [place] [address]. [place] [address] [place] [address] Care Team Providers Care Highway Administrative Engineer Name Role Phone Veronica Rapp Primary Care Provider [phone] Dax Vinson MD Primary Care Provider [phone] Encounter Details Date Type Department Care Team (Late st Contact Info) Description 04/11/2015 Abstract [facility] CONVERSION [address] [place] [address] , Josh Padron MD Social History Tobacco Use Types Packs/Day [...] on filedocumented in this encounter Care Teams Highway Administrative Engineer Relationship Specialty Start Date End Date Veronica Rapp FNP [address] [facility] [place] [address] PCP - General Nurse Practitioner Family 08/08/2201/19/24 [place] [address] [address] [place] [address] PCP - General INTERNAL MEDICINE 01/20/24 documented as of this encounter
--- OUTSIDE RECORDS SUMMARY | 2024-03-20 02:31 | XMS_ITS | Encounter Summary ---
Author Organization [facility] Address [address] [place] [address]. [place] [address] [place] [address] Care Team Providers Care Bullard Operator Name Role Phone Veronica Rapp Primary Care Provider [phone] Dax Vinson MD Primary Care Provider [phone]- [phone] Encounter Details Date Type Department Care Team (Late st Contact Info) Description 03/14/2015 Abstract [facility] CONVERSION [address] [place] [address] , Josh Padron MD Social History Tobacco [...] on filedocumented in this encounter Care Teams Bullard Operator Relationship Specialty Start Date End Date Veronica Rapp FNP [address] [facility] [place] [address] PCP - General Nurse Practitioner Family 08/08/2201/19/24 [place] [address] [address] [facility] [address] [place] [address] PCP - General INTERNAL MEDICINE 01/20/24 documented as of this encounter
--- OUTSIDE RECORDS SUMMARY | 2024-03-20 02:31 | XMS_ITS | Encounter Summary ---
Author Organization [facility] Address [address] [place] [address]. [place] [address] [place] [address] Care Team Providers Care Oil And Gas Superintendent Name Role Phone Unavailable Primary Care Provider Unavailabl e Encounter Details Date Type Department Care Team (Late st Contact Info) Description 08/29/2011 Abstract [facility] Clinics Conversion Sadie Quan, BOARD ATTENDANT [address] [place], [place] [phone] Social History Tobacco Use Types Packs/Day Years Used Date Smoking Tobacco: Never Assessed Comments Unknown Sex and Gender Information Value Date Recorded Sex Assigned at Not on file Legal Sex Female 5:40 PM CDT Gender Identity Not on file Sexual Orientation Not on file documented as of this encounter Last Filed Vital Signs Vital Sign Reading Time Taken Comments Blood Pressure 118/60 08/29/2011 2:02 PM CDT Pulse 68 08/29/2011 2:02 PM CDT Temperature - - Respiratory Rate - - Oxygen Saturation - - Inhaled Oxygen Concentration - - Weight 56.7 kg (125 lb) 08/29/2011 2:02 PM CDT Height - - Body Mass Index - - documented in this encounter Plan of Treatment Not on file documented as of this encounter Visit Diagnoses Not on filedocumented in this encounter
--- OUTSIDE RECORDS SUMMARY | 2024-03-20 02:31 | XMS_ITS | Encounter Summary ---
Author Organization [facility] Address [address] [place] [address]. [place] [address] [place] [address] Care Team Providers Care Recreational Leader Name Role Phone Unavailable Primary Care Provider Unavailabl e Encounter Details Date Type Department Care Team (Late st Contact Info) Description 01/17/2012 Abstract [facility] [address] [place] [address] Hailee Mack, EVER [address] [facility] [place] [address] Social History Tobacco Use Types Packs/Day Years [...] of this encounter Visit Diagnoses Diagnosis Other screening mammogram documented in this encounter
--- OUTSIDE RECORDS SUMMARY | 2024-03-20 02:31 | XMS_ITS | Encounter Summary ---
Author Organization [facility] Address [address] [place] [address]. [place], [place] [address] [place] [address] Care Team Providers Care Plastic Surgeon Name Role Phone Veronica Rapp Primary Care Provider [phone] Encounter Details Date Type Department Care Team (Latest Contact Info) Description 09/16/2022 Travel Social History Tobacco Use Types Packs/Day [...] on filedocumented in this encounter Care Teams Plastic Surgeon Relationship Specialty Start Date End Date Veronica Rapp FNP [address] [place] [address] PCP - General Nurse Practitioner Family 08/08/2201/19/24 documented as of this encounter
--- OUTSIDE RECORDS SUMMARY | 2024-03-20 02:31 | XMS_ITS | Encounter Summary ---
Author Organization [facility] Address [address] [place] [address]. [place] [address] [place] [address] Care Team Providers Care Falsework Builder Name Role Phone Unavailable Primary Care Provider Unavailabl e Encounter Details Date Type Department Care Team (Late st Contact Info) Description 01/17/2012 Abstract [facility] Clinics Conversion Md, Generic Conversion, Social History Tobacco Use Types Packs/Day Years [...]
--- OUTSIDE RECORDS SUMMARY | 2024-03-20 02:31 | XMS_ITS | Encounter Summary ---
Author Organization [facility] Address [address] [place] [address]. [place] [address] [place] [address] Care Team Providers Care Personal Service Representative Name Role Phone Unavailable Primary Care Provider Unavailabl e Encounter Details Date Type Department Care Team (Late st Contact Info) Description 04/29/2015 Abstract [facility] Diagnostic Imaging [address] [place] [address] Aurelia Saezn MD Social History Tobacco Use Types Packs/Day [...] as of this encounter Visit Diagnoses Diagnosis Encounter for screening mammogram for malignant neoplasm of breast Other screening mammogram documented in this encounter
--- OUTSIDE RECORDS SUMMARY | 2024-03-20 02:31 | XMS_ITS | Encounter Summary ---
Author Organization [facility] Address [address] [place] [address]. [place] [address] [place] [address] Care Team Providers Care Rn Transitional Name Role Phone Unavailable Primary Care Provider Unavailabl e Encounter Details Date Type Department Care Team (Late st Contact Info) Description 11/26/2017 Abstract [facility] Imaging [address] [place] [address] Aurelia Saenz MD Social History Tobacco Use [...]
--- OUTSIDE RECORDS SUMMARY | 2024-03-20 02:31 | XMS_ITS | Encounter Summary ---
Author Organization [facility] Address [address] [place] [address]. [place] [address] [place] [address] Care Team Providers Care Tobacco Conditioner Name Role Phone Veronica Rapp Primary Care Provider [phone] Dax Vinson MD Primary Care Provider [phone]- [phone] Encounter Details Date Type Department Care Team (Late st Contact Info) Description 12/25/2015 Abstract [facility] CONVERSION [address] [place] [address] , Josh Padron MD Social History Tobacco [...] on filedocumented in this encounter Care Teams Tobacco Conditioner Relationship Specialty Start Date End Date Veronica Rapp FNP [address] [facility] [place] [address] PCP - General Nurse Practitioner Family 08/08/2201/19/24 [place] [address] [address] [facility] [address] [place] [address] PCP - General INTERNAL MEDICINE 01/20/24 documented as of this encounter
--- OUTSIDE RECORDS SUMMARY | 2024-03-20 02:31 | XMS_ITS | Encounter Summary ---
Author Organization [facility] Address [address] [place] [address]. [place] [address] [place] [address] Care Team Providers Care Instrumental Teacher Name Role Phone Unavailable Primary Care Provider Unavailabl e Encounter Details Date Type Department Care Team (Late st Contact Info) Description 05/24/2011 Abstract [facility] Clinics Conversion Md, Generic Conversion, Social History [...]
--- OUTSIDE RECORDS SUMMARY | 2024-03-20 02:31 | XMS_ITS | Encounter Summary ---
Author Organization [facility] Address [address] [place] [address]. [place], [place] [address] [place] [address] Care Team Providers Care Heating And Ventilating Drafter Name Role Phone Veronica Rapp Primary Care Provider Encounter Details Date Type Department Care Team (Latest Contact Info) Description 12/23/2023 Travel Social History Tobacco Use Types Packs/Day [...] on filedocumented in this encounter Care Teams Heating And Ventilating Drafter Relationship Specialty Start Date End Date Veronica Rapp FNP [address] [place] [address] PCP - General Nurse Practitioner Family 08/08/2201/19/24 documented as of this encounter
--- OUTSIDE RECORDS SUMMARY | 2024-03-20 02:31 | XMS_ITS | Encounter Summary ---
Author Organization [facility] Address [address] [place] [address]. [place], [place] [address] [place] [address] Care Team Providers Care Petroleum Geologist Name Role Phone Veronica Brody Primary Care Provider [phone]- [phone] Reason for Referral * Imaging (Routine) - New Request Specialty Diagnoses / Procedures Referred By Facundo randle Referred To Contact RADIOLOGY Diagnoses Other specified disorders of bone density and structure, unspecified site Procedures BONE DENSITY/DEXA Veronica Brody FNP [address] [place] [address] Phone: tel: fax: Referral ID Status Reason Start Date Expiration Date V isits Requested Visits Authorized [id number] New Request 10/28/2023 10/27/2024 1 1 * Imaging (Routine) - New Request Specialty Diagnoses / Procedures Referred By Facundo randle Referred To Contact RADIOLOGY Diagnoses Encounter for screening mammogram for malignant neoplasm of breast Procedures MG SCREENING W YAZ VALERIA DIGI Veronica Brody FNP [address] [place] [address] [place] [address] Phone: tel: fax: Referral ID Status Reason Start Date Expiration Date V isits Requested Visits Authorized [id number] New Request 10/28/2023 12/27/2024 1 1 Reason for Visit * Imaging (Routine) - New Request Specialty Diagnoses / Procedures Referred By Facundo randle Referred To Contact RADIOLOGY Diagnoses Encounter for screening mammogram for malignant neoplasm of breast Procedures MG SCREENING W YAZ VALERIA DIGI Veronica Brody FNP [address] [place] [address] Phone: tel: fax: Referral ID Status Reason Start Date Expiration Date V isits Requested Visits Authorized [id number] New Request 10/28/2023 12/27/2024 1 1 Encounter Details Date Type Department Care Team (Latest Contact Info) Description 12/23/2023 9:12 AM CDT - 12/23/2023 11:59 PM CDT Hospital Encounter [facility] Mammography [address] [place] [address] Veronica Brody FNP [address] [place] [address] Discharge Disposition: Home or Self Care (Routine [...] of bone density and structure, unspecified site documented in this encounter Results * MG [...] 1:Routine Screening Bilateral Comments: Ordered By: VERONICA BRODY Interpreted By: Brenda Sen, 12/23/2023 5:35 PM Narrative 12/25/2023 10:46 AM CDT [facility] [address] [place] [address] EXAMINATION: Digital bilateral screening mammogram with 3-D [...] either breast to suggest malignancy. us Veronica Brody GRADING CLERK MAMMO Final Resul t * BONE DENSITY/DEXA [...] have additional risk factors. Referred By: VERONICA BRODY Interpreted By: Saurabh Goldstein MD, 12/26/2023 6:13 AM Narrative 12/26/2023 6:14 AM CDT [address] [address] EXAMINATION: BONE DENSITY/DEXA INDICATIONS: Other specified disorders [...] Procedure Note Saurabh Goldstein MD - 12/26/[address] [id number] EXAMINATION: BONE DENSITY/DEXA INDICATIONS: Other specified disorders [...] have additional risk factors. Referred By: VERONICA BRODY Interpreted By: Saurabh Goldstein MD, 12/26/2023 6:13 AM Veronica PAGE DEXA Final Resul t documented in this encounter Visit Diagnoses Diagnosis Encounter for screening mammogram for malignant neoplasm of breast Other screening mammogram Other specified disorders of bone density and structure, unspecified site documented in this encounter Care Teams Petroleum Geologist Relationship Specialty Start Date End Date Veronica Brody FNP [address] [place] [address] PCP - General Nurse Practitioner Family 08/08/2201/19/24 documented as of this encounter
--- OUTSIDE RECORDS SUMMARY | 2024-03-20 02:31 | XMS_ITS | Encounter Summary ---
Author Organization [facility] Address [address] [place] [address]. [place] [address] [place] [address] Care Team Providers Care Gear Setter Name Role Phone Unavailable Primary Care Provider Unavailabl e Encounter Details Date Type Department Care Team (Late st Contact Info) Description 01/20/2018 Abstract [facility] Conversion Md, Generic Conversion, Social [...]
--- OUTSIDE RECORDS SUMMARY | 2024-03-20 02:31 | XMS_ITS | Encounter Summary ---
Author Organization [facility] Address [address] [place] [address]. [place] [address] [place] [address] Care Team Providers Care Janitor Caretaker Name Role Phone Unavailable Primary Care Provider Unavailabl e Encounter Details Date Type Department Care Team (Late st Contact Info) Description 11/11/2014 Abstract [facility] Conversion Md, Generic Conversion, Social [...]
--- OUTSIDE RECORDS SUMMARY | 2024-03-20 02:31 | XMS_ITS | Encounter Summary ---
Author Organization [facility] Address [address] [place] [address]. [place] [address] [place] [address] Care Team Providers Care Vacuum Technician Name Role Phone Unavailable Primary Care Provider Unavailabl e Encounter Details Date Type Department Care Team (Late st Contact Info) Description 11/09/2014 Abstract [facility] Cardiopulmonary Services [address] [place], [place] [id number] Julio Wu MD [address] [place] [address] Social History Tobacco Use Types [...]
--- OUTSIDE RECORDS SUMMARY | 2024-03-20 02:31 | XMS_ITS | Encounter Summary ---
Author Organization [facility] Address [address] [place] [address]. [place] [address] [place] [address] Care Team Providers Care Candy Attendant Name Role Phone Unavailable Primary Care Provider Unavailabl e Encounter Details Date Type Department Care Team (Late st Contact Info) Description 11/26/2013 Abstract [facility] [address] [place] [address] Aurelia Saenz MD Social History Tobacco Use [...]
--- OUTSIDE RECORDS SUMMARY | 2024-03-20 02:31 | XMS_ITS | Encounter Summary ---
Author Organization [facility] Address [address] [place] [address]. [place] [address] [place] [address] Care Team Providers Care Flask Cleaner Name Role Phone Unavailable Primary Care Provider Unavailabl e Encounter Details Date Type Department Care Team (Late st Contact Info) Description 03/25/2012 Abstract [facility] Conversion Md, Generic Conversion, Social [...]
--- OUTSIDE RECORDS SUMMARY | 2024-03-20 02:31 | XMS_ITS | Encounter Summary ---
Author Organization [facility] Address [address] [place] [address]. [place] [address] [place] [address] Care Team Providers Care Body Design Checker Name Role Phone Veronica Brody Primary Care Provider [phone]- [phone] Reason for Visit * Imaging (Routine) - Closed Specialty Diagnoses / Procedures Referred By Facundo randle Referred To Contact RADIOLOGY Diagnoses Encounter for screening mammogram for malignant neoplasm of breast Procedures MG SCREENING W YAZ VALERIA DIGI Veronica Brody FNP [address] [place] [address] Phone: tel: fax: Referral ID Status Reason Start Date Expiration Date Visits Re quested Visits Authorized [id number] Closed 05/30/2022 05/31/2023 1 1 Encounter Details Date Type Department Care Team (Latest Contact Info) Description 09/16/2022 10:14 AM CDT - 09/16/2022 11:59 PM T Hospital Encounter [facility] Mammography [address] [place], [place] [id number] Veronica Brody FNP [address] [place] [address] Discharge Disposition: Home or Self Care (Routine [...] MG SCREENING W YAZ VALERIA DIGI Routine 09/16/2022 10:39 AM CDT Encounter for screening mammogram for malignant neoplasm of breast documented in this encounter Results * MG SCREENING W YAZ VALERIA DIGI (09/16/2022 10:39 AM CDT) Anatomical Region Laterality Modality Breast Bilateral Mammography 09/16/2022 1:26 PM CDT Narrative 09/16/2022 1:30 PM CDT IMAGING STUDIES: Bilateral screening mammograms with computer-aided detection with 2-D and 3-D imaging. Tomosynthesis. DATE: 09/16/2022 10:19 AM HISTORY: Encounter for screening mammogram for malignant neoplasm of breast ?? . COMPARISON: ??11/26/2017. 02/03/2019 TISSUE TYPE: There are scattered areas of fibroglandular density. FINDINGS: 1. ??Mild scattered ??fibroglandular tissue pattern is present. 2. ??No malignant microcalfcifications, new dominant masses, or architectural distortion. 3. No skin thickening or nipple retraction. ??Axillary regions are within normal limits. IMPRESSION: 1. No mammographic evidence of malignancy. 2. Assessment: ACR BI-RADS 1 - NEGATIVE 3 .Routine Screening Bilateral MQSA BI-RADS Categories: Category 0 - needs additional imaging evaluation. Category 1 - negative. Category 2 - benign findings. Category 3 - probably benign findings, but short interval follow-up ?is recommended. Category 4 - suspicious abnormality and biopsy should be considered ?though the lesion may well be benign. Category 5 - highly suggestive of malignancy and appropriate action ?should be taken. ?? Category 6 - known biopsy-proven malignancy A) ??A negative report should not delay a biopsy if a dominant or ?clinically suspicious mass is present. B) ??Adenosis and dense breasts may obscure an underlying neoplasm. C) ??Study interpreted with computer aided detection. Ordered By: VERONICA BRODY Interpreted By: Brenda Sen, 09/16/2022 1:26 PM Veronica Brody VIDEOTAPE RECORDING ENGINEER MAMMO Final Resul t documented in this encounter Visit Diagnoses Not on filedocumented in this encounter Care Teams Body Design Checker Relationship Specialty Start Date End Date Veronica Brody FNP [address] [place] [address] PCP - General Nurse Practitioner Family 08/08/2201/19/24 documented as of this encounter
--- OUTSIDE RECORDS SUMMARY | 2024-03-20 02:31 | XMS_ITS | Encounter Summary ---
Author Organization [facility] Address [address] [place] [address]. [place] [address] [place] [address] Care Team Providers Care Petrophysical Engineer Name Role Phone Unavailable Primary Care Provider Unavailabl e Encounter Details Date Type Department Care Team (Late st Contact Info) Description 12/03/2017 Abstract [facility] [address] [place] [address] , Josh Padron MD Social History Tobacco [...] Procedure Name Priority Date/Time Associated Diagnosis Comments TSH W/REFLEX Routine 12/03/2017 8:50 AM CDT COMPREHENSIVE METABOLIC PANEL Routine 12/03/2017 8:50 AM CDT CBC W/DIFF AUTOMATED Routine 12/03/2017 8:50 AM CDT PHOSPHORUS, INORGANIC PHOSPHATE Routine 12/03/2017 8:50 AM CDT VITAMIN D, 25 OH Routine 12/03/2017 8:50 AM CDT documented in this encounter Results * VITAMIN D, 25 OH (12/03/2017 8:50 AM CDT) VITAMIN D 25 HYDROXY S/P/B 47 30 - 100 NG/ML 12/03/2017 5:10 PM CDT [facility] Comment: ?INTERPRETATION ?DEFICIENT ??<20 ? INSUFFICIENT 20-29 ?SUFFICIENT 30-100 12/03/2017 8:50 AM CDT 12/03/2017 8:51 AM CDT Generic Conversion Md [facility] Final [facility] Performing Organization Address City/[facility] Co de Phone Number [facility] [address] [place] [address], [place] [phone] * TSH W/REFLEX (12/03/2017 8:50 AM CDT) [facility] TSH 2.748 0.358 - 3.74 uIU/ML 12/03/2017 9:21 AM CDT [facility] Comment: HIGH DOSES OF BIOTIN MAY INTERFERE WITH THIS TEST RESULT. CORRELATION TO CLINICAL HISTORY AND PRESENTATION RECOMMENDED.FREE T4 NOT INDICATED SERUM OR PLASMA SPECIMEN / Unknown 12/03/2017 8:50 AM CDT 12/03/2017 8:51 AM CDT us Generic Conversion Md [facility] Final R eseli Performing Organization Address City/[facility]/ZIP Co de Phone Number [facility] [address] [place] [address], [place] [phone] * PHOSPHORUS, INORGANIC PHOSPHATE (12/03/2017 8:50 AM CDT) Pathologist [facility] PHOSPHORUS 3.8 2.5 - 4.9 MG/DL 12/03/2017 9:21 AM CDT [facility] SERUM OR PLASMA SPECIMEN / Unknown 12/03/2017 8:50 AM CDT 12/03/2017 8:51 AM CDT us Generic Conversion Md [facility] Final R esult [facility] [address] [place] [id number], [place] [phone] * (ABNORMAL) COMPREHENSIVE METABOLIC PANEL (12/03/2017 8:50 AM CDT) Pathologist [facility] GLUCOSE 99 70 - 99 MG/DL 12/03/2017 9:21 AM CDT [facility] BUN 19(H) 7 - 18 MG/DL 12/03/2017 9:21 AM CDT [facility] CREATININE S/P/B 0.60 0.55 - 1.02 MG/DL 12/03/2017 9:21 AM CDT [facility] SODIUM S/P/B 142 136 - 145 MMOL/L 12/03/2017 9:21 AM CDT [facility] POTASSIUM S/P/B 3.9 3.5 - 5.1 MMOL/L 12/03/2017 9:21 AM CDT [facility] CHLORIDE S/P/B 103 100 - 108 MMOL/L 12/03/2017 9:21 AM CDT [facility] CO2 27.8 21 - 32 MMOL/L 12/03/2017 9:21 AM CDT [facility] CALCIUM S/P/B 8.8 8.5 - 10.1 MG/DL 12/03/2017 9:21 AM CDT [facility] BILIRUBIN TOTAL S/P/B 0.3 0.2 - 1.2 MG/DL 12/03/2017 9:21 AM CDT [facility] TOTAL PROTEIN S/P/B 7.4 6.4 - 8.2 G/DL 12/03/2017 9:21 AM [facility] ALBUMIN S/P/B 3.9 3.4 - 5.0 G/DL 12/03/2017 9:21 AM [facility] AST 23 15 - 37 U/L 12/03/2017 9:21 AM [facility] ALT 41 14 - 55 U/L 12/03/2017 9:21 AM [facility] ALKALINE PHOSPHATASE S/P/B 63 50 - 136 U/L 12/03/2017 9:21 AM [facility] ANION GAP 15.1 8 - 20 MMOL/L 12/03/2017 9:21 AM [facility] BUN CREATININE RATIO 31.7(H) 6 - 26 12/03/2017 9:21 AM [facility] A/G RATIO 1.1 1.0 - 2.0 RATIO 12/03/2017 9:21 AM [facility] EGFR NON-AFR. AMER. >90 >90 ML/MIN/1.7 3 M2 12/03/2017 9:21 AM [facility] EGFR AFR. AMER. >90 >90 ML/MIN/1.7 3 M2 12/03/2017 9:21 AM [facility] Comment: NOTE: eGFR is not calculated for patients <18 years of age. This is an estimated GFR (CKD EPI) and should not be used for calculating drug doses. 12/03/2017 8:50 AM CDT 12/03/2017 8:51 AM CDT us Generic Conversion Md [facility] Final R esult [facility] [address] [place] [address], [place] [phone] * (ABNORMAL) CBC W/DIFF AUTOMATED (12/03/2017 8:50 AM CDT) [facility] Signature WBC 5.1 4.4 - 11.0 x10'3/uL 12/03/2017 8:59 AM CDT [facility] RBC 4.87 4.50 - 5.10 x10'6/uL 12/03/2017 8:59 AM CDT [facility] HGB 13.9 12.3 - 15.3 G/DL 12/03/2017 8:59 AM CDT [facility] HCT 43.1 35.9 - 44.6 % 12/03/2017 8:59 AM CDT [facility] MCV 88.5 80.0 - 96.0 FL 12/03/2017 8:59 AM CDT [facility] MCH 28.5 25.3 - 30.9 PG 12/03/2017 8:59 AM CDT [facility] MCHC 32.3 31.0 - 34.1 G/DL 12/03/2017 8:59 AM CDT [facility] RDW 13.1 12.4 - 15.1 % 12/03/2017 8:59 AM CDT [facility] PLT 280 151 - 353 x10'3/uL 12/03/2017 8:59 AM CDT [facility] MPV 9.6 9.6 - 12.0 FL 12/03/2017 8:59 AM T [facility] RBC MORPHOLOGY NORMAL 12/03/2017 8:59 AM CDT [facility] PLT MORPH. NORMAL 12/03/2017 8:59 AM T [facility] WBC MORPHOLOGY NORMAL 12/03/2017 8:59 AM CDT [facility] LYMPHOCYTES % 29.8 15.8 - 45.0 % 12/03/2017 8:59 AM CDT [facility] NEUTROPHILS % 53.8 42.1 - 71.9 % 12/03/2017 8:59 AM CDT [facility] MONOCYTES % 8.5 5.7 - 12.5 % 12/03/2017 8:59 AM CDT [facility] EOSINOPHILS 6.9(H) 0.0 - 5.6 % 12/03/2017 8:59 AM CDT [facility] BASOPHILS 0.6 0.0 - 1.3 % 12/03/2017 8:59 AM CDT [facility] ABS. NEUTROPHILS TOTAL 2.73 1.40 - 6.00 x10'3/uL 12/03/2017 8:59 AM CDT [facility] IMMATURE GRANS % 0.4 0.0 - 0.5 % 12/03/2017 8:59 AM CDT [facility] ABS. LYMPHOCYTES 1.51 0.80 - 4.70 x10'3/uL 12/03/2017 8:59 AM T [facility] 12/03/2017 8:50 AM CDT 12/03/2017 8:51 AM CDT us Generic Conversion Md [facility] Final R esult [facility] [address] [place] [address], [place] [phone] documented in this encounter Visit Diagnoses Diagnosis Other specified disorders of bone density and structure, multiple sites documented in this encounter
--- OUTSIDE RECORDS SUMMARY | 2024-03-20 02:32 | XMS_ITS | Encounter Summary ---
Author Organization [facility] Address [address] [place] [address]. [place] [address] [place] [address] Care Team Providers Care Dock Or Pier Laborer Name Role Phone Unavailable Primary Care Provider Unavailabl e Encounter Details Date Type Department Care Team (Late st Contact Info) Description 02/13/2007 Abstract [facility] [address] [place] [address] Judson Judd MD [address] [place] [address] Social History Tobacco Use Types Packs/Day Years [...]
--- OUTSIDE RECORDS SUMMARY | 2024-03-20 02:32 | XMS_ITS | Encounter Summary ---
Author Organization [facility] Address [address] [place] [address]. [place] [address] [place] [address] Care Team Providers Care Mud Mill Tender Name Role Phone Unavailable Primary Care Provider Unavailabl e Encounter Details Date Type Department Care Team (Late st Contact Info) Description 01/18/2005 Abstract [facility] [address] [place] [id number] Anayeli Askew MD [address] [place] [address] Social History Tobacco Use Types Packs/Day Years [...]
--- OUTSIDE RECORDS SUMMARY | 2024-03-20 02:32 | XMS_ITS | Encounter Summary ---
Author Organization [facility] Address [address] [place] [address]. [place] [address] [place] [address] Care Team Providers Care Donor Technician Name Role Phone Unavailable Primary Care Provider Unavailabl e Encounter Details Date Type Department Care Team (Late st Contact Info) Description 01/02/2010 Abstract [facility] Cardiopulmonary Services [address] [place] [address] Aurelia Saenz MD Social History Tobacco Use [...]
--- OUTSIDE RECORDS SUMMARY | 2024-03-20 02:32 | XMS_ITS | Encounter Summary ---
Author Organization [facility] Address [address] [place] [address]. [place] [address] [place] [address] Care Team Providers Care Incident Response Engineer Name Role Phone Unavailable Primary Care Provider Unavailabl e Encounter Details Date Type Department Care Team (Late st Contact Info) Description 12/21/2009 Abstract [facility] [address] [place] [address] Aurelia Saenz MD Social History Tobacco Use [...] of this encounter Visit Diagnoses Diagnosis Other disorders of menstruation and other abnormal bleeding from female genital tract documented in this encounter
--- OUTSIDE RECORDS SUMMARY | 2024-03-20 02:32 | XMS_ITS | Encounter Summary ---
Author Organization [facility] Address [address] [place] [address]. [place] [address] [place] [address] Care Team Providers Care Vc++ Developer Name Role Phone Unavailable Primary Care Provider Unavailabl e Encounter Details Date Type Department Care Team (Late st Contact Info) Description 03/15/2011 Abstract [facility] Conversion Md, Generic Conversion, [...]
--- OUTSIDE RECORDS SUMMARY | 2024-03-20 02:32 | XMS_ITS | Encounter Summary ---
Author Organization [facility] Address [address] [place] [address]. [place] [address] [place] [address] Care Team Providers Care Electrician Substation Name Role Phone Unavailable Primary Care Provider Unavailabl e Encounter Details Date Type Department Care Team (Late st Contact Info) Description 10/17/2006 Abstract [facility]ography [address] [place] [id number] Jacquelin Alvarez, DO [address] [place] [address] Social History Tobacco Use Types Packs/Day Years [...]
--- OUTSIDE RECORDS SUMMARY | 2024-03-20 02:32 | XMS_ITS | Encounter Summary ---
Author Organization [facility] Address [address] [place] [address]. [place] [address] [place] [address] Care Team Providers Care Neuro Urologist Name Role Phone Unavailable Primary Care Provider Unavailabl e Encounter Details Date Type Department Care Team (Late st Contact Info) Description 03/11/2007 Abstract [facility] [address] [place] [address] Julio Brewster MD [address] [place] [address] Social History Tobacco Use Types Packs/Day Years [...]
--- OUTSIDE RECORDS SUMMARY | 2024-03-20 02:32 | XMS_ITS | Encounter Summary ---
Author Organization [facility] Address [address] [place] [address]. [place] [address] [place] [address] Care Team Providers Care Footwear Sales Coordinator Name Role Phone Unavailable Primary Care Provider Unavailabl e Encounter Details Date Type Department Care Team (Late st Contact Info) Description 11/25/2003 Abstract [facility] [address] [place] [id number] Anayeli Askew MD [address] [place] [address] Social History Tobacco Use Types Packs/Day Years [...]
--- OUTSIDE RECORDS SUMMARY | 2024-03-20 02:32 | XMS_ITS | Encounter Summary ---
Author Organization [facility] Address [address] [place] [address]. [place] [address] [place] [address] Care Team Providers Care Senior Writer Name Role Phone Unavailable Primary Care Provider Unavailabl e Encounter Details Date Type Department Care Team (Late st Contact Info) Description 11/12/2008 Abstract [facility] [address] [place] [address] Aurelia Saenz MD Social History Tobacco Use [...]
--- OUTSIDE RECORDS SUMMARY | 2024-03-20 02:32 | XMS_ITS | Encounter Summary ---
Author Organization [facility] Address [address] [place] [address]. [place] [address] [place] [address] Care Team Providers Care Auto Body Man Name Role Phone Unavailable Primary Care Provider Unavailabl e Encounter Details Date Type Department Care Team (Late st Contact Info) Description 05/04/2004 Abstract [facility] [address] [place], [place] [address] Anayeli Askew MD [address] [place] [address] Social History Tobacco Use Types Packs/Day Years [...]
--- OUTSIDE RECORDS SUMMARY | 2024-03-20 02:32 | XMS_ITS | Encounter Summary ---
Author Organization [facility] Address [address] [place] [address]. [place] [address] [place] [address] Care Team Providers Care Underwater Hunter Trapper Name Role Phone Unavailable Primary Care Provider Unavailabl e Encounter Details Date Type Department Care Team (Late st Contact Info) Description 08/21/2002 Abstract [facility] [address] [place] [address] Efrem Jameson MD Social History Tobacco Use Types Packs/Day [...]
--- OUTSIDE RECORDS SUMMARY | 2024-03-20 02:32 | XMS_ITS | Encounter Summary ---
Author Organization [facility] Address [address] [place] [address]. [place] [address] [place] [address] Care Team Providers Care Wind Plant Manager Name Role Phone Unavailable Primary Care Provider Unavailabl e Encounter Details Date Type Department Care Team (Late st Contact Info) Description 01/01/2002 Abstract [facility] [address] [place] [address] Deion Blevins MD [address] [place] [id number] Social History Tobacco Use Types Packs/Day Years [...]
--- OUTSIDE RECORDS SUMMARY | 2024-03-20 02:32 | XMS_ITS | Encounter Summary ---
Author Organization [facility] Address [address] [place] [address]. [place] [address] [place] [address] Care Team Providers Care Manager Management Name Role Phone Unavailable Primary Care Provider Unavailabl e Encounter Details Date Type Department Care Team (Late st Contact Info) Description 04/12/2009 Abstract [facility] Mammography [address] [place], [place] [id number] Aurelia Saenz MD Social History Tobacco Use [...]
--- OUTSIDE RECORDS SUMMARY | 2024-03-20 02:32 | XMS_ITS | Encounter Summary ---
Author Organization [facility] Address [address] [place] [address]. [place] [address] [place] [address] Care Team Providers Care Public Safety Teacher Name Role Phone Unavailable Primary Care Provider Unavailabl e Encounter Details Date Type Department Care Team (Late st Contact Info) Description 11/28/2003 Abstract [facility] [address] [place] [id number] Anayeli Askew MD [address] [place] [address] Social History Tobacco Use Types Packs/Day Years [...]
--- OUTSIDE RECORDS SUMMARY | 2024-03-20 02:32 | XMS_ITS | Encounter Summary ---
Author Organization [facility] Address [address] [place] [address]. [place] [address] [place] [address] Care Team Providers Care Institutional Custodian Name Role Phone Unavailable Primary Care Provider Unavailabl e Encounter Details Date Type Department Care Team (Late st Contact Info) Description 03/09/2007 Abstract [facility] Surgical Services [address] [place] [address] Julio Brewster MD [address] [place] [address] Social History Tobacco Use Types Packs/Day Years [...]
--- OUTSIDE RECORDS SUMMARY | 2024-03-20 02:32 | XMS_ITS | Encounter Summary ---
Author Organization [facility] Address [address] [place] [address]. [place] [address] [place] [address] Care Team Providers Care Postal Service Mail Processor Name Role Phone Unavailable Primary Care Provider Unavailabl e Encounter Details Date Type Department Care Team (Late st Contact Info) Description 10/20/2003 Abstract [facility] [address] [place], [place] [id number] Anaylei Askew MD [address] [address] Social History Tobacco Use Types Packs/Day Years [...]
--- OUTSIDE RECORDS SUMMARY | 2024-03-20 02:32 | XMS_ITS | Encounter Summary ---
Author Organization [facility] Address [address] [place] [address]. [place] [address] [place] [address] Care Team Providers Care Front End Architect Name Role Phone Unavailable Primary Care Provider Unavailabl e Encounter Details Date Type Department Care Team (Late st Contact Info) Description 03/18/2007 Abstract [facility] [address] [place] [address] Julio Brewster MD [address] [place] [address] Social History Tobacco Use Types Packs/Day Years [...]
--- OUTSIDE RECORDS SUMMARY | 2024-03-20 02:32 | XMS_ITS | Encounter Summary ---
Author Organization [facility] Address [address] [place] [address]. [place] [address] [place] [address] Care Team Providers Care Marketing Research Coordinator Name Role Phone Unavailable Primary Care Provider Unavailabl e Encounter Details Date Type Department Care Team (Late st Contact Info) Description 03/09/2008 Abstract [facility] Mammography [address] [place] [address] Jacquelin Alvarez, DO [address] [place] [address] Social History Tobacco Use Types Packs/Day Years [...]
--- OUTSIDE RECORDS SUMMARY | 2024-03-20 02:32 | XMS_ITS | Encounter Summary ---
Author Organization [facility] Address [address] [place] [address]. [place] [address] [place] [address] Care Team Providers Care Salesperson Meats Name Role Phone Unavailable Primary Care Provider Unavailabl e Encounter Details Date Type Department Care Team (Late st Contact Info) Description 09/28/2001 Abstract [facility] [address] [place] [address] Jacquelin Alvarez, DO [address] [place] [address] Social History Tobacco Use Types Packs/Day Years [...]
--- OUTSIDE RECORDS SUMMARY | 2024-03-20 02:32 | XMS_ITS | Encounter Summary ---
Author Organization [facility] Address [address] [place] [address]. [place] [address] [place] [address] Care Team Providers Care Predatory Animal Trapper Name Role Phone Unavailable Primary Care Provider Unavailabl e Encounter Details Date Type Department Care Team (Late st Contact Info) Description 12/01/2003 Abstract [facility] [address] [place], [place] [id number] Anayeli Askew MD [address] [place] [address] Social History Tobacco Use Types Packs/Day Years [...]
--- OUTSIDE RECORDS SUMMARY | 2024-03-20 02:32 | XMS_ITS | Encounter Summary ---
Author Organization [facility] Address [address] [place] [address]. [place] [address] [place] [address] Care Team Providers Care Tensioning Machine Operator Name Role Phone Unavailable Primary Care Provider Unavailabl e Encounter Details Date Type Department Care Team (Late st Contact Info) Description 02/27/2007 Abstract [facility] Diagnostic Imaging [address] [place] [address] Julio Brewster MD [address] [place] [address] Social History Tobacco Use Types Packs/Day Years [...]
--- OUTSIDE RECORDS SUMMARY | 2024-03-20 02:32 | XMS_ITS | Encounter Summary ---
Author Organization [facility] Address [address] [place] [address]. [place] [address] [place] [address] Care Team Providers Care Supervisor Slitting And Shipping Name Role Phone Unavailable Primary Care Provider Unavailabl e Encounter Details Date Type Department Care Team (Late st Contact Info) Description 01/12/2005 Abstract [facility] [address] [address] Anayeli Askew MD [address] [place] [address] Social History Tobacco Use Types Packs/Day Years [...]
--- OUTSIDE RECORDS SUMMARY | 2024-03-20 02:32 | XMS_ITS | Encounter Summary ---
Author Organization [facility] Address [address] [place] [address]. [place] [address] [place] [address] Care Team Providers Care Motor Bus Driver Name Role Phone Unavailable Primary Care Provider Unavailabl e Encounter Details Date Type Department Care Team (Late st Contact Info) Description 08/25/2008 Abstract [facility] [address] [place] [address] Judson Judd MD [address] [place] [address] Social History Tobacco Use Types Packs/Day Years [...]
--- OUTSIDE RECORDS SUMMARY | 2024-03-20 02:32 | XMS_ITS | Encounter Summary ---
Author Organization [facility] Address [address] [place] [address]. [place] [address] [place] [address] Care Team Providers Care Automotive Service Cashier Name Role Phone Unavailable Primary Care Provider Unavailabl e Encounter Details Date Type Department Care Team (Late st Contact Info) Description 03/06/2007 Abstract [facility] [address] [place] [address] Julio Brewster MD [address] [place] [address] Social History Tobacco Use Types Packs/Day Years [...]
--- OUTSIDE RECORDS SUMMARY | 2024-03-20 02:32 | XMS_ITS | Encounter Summary ---
Author Organization [facility] Address [address] [place] [address]. [place] [address] [place] [address] Care Team Providers Care Sap Portal Developer Name Role Phone Unavailable Primary Care Provider Unavailabl e Encounter Details Date Type Department Care Team (Late st Contact Info) Description 08/14/2002 Abstract [facility] [address] [place] [address] Efrem Jameson MD Social History Tobacco Use [...]
--- OUTSIDE RECORDS SUMMARY | 2024-03-20 02:32 | XMS_ITS | Encounter Summary ---
Author Organization [facility] Address [address] [place] [address]. [place] [address] [place] [address] Care Team Providers Care Iron Caster Name Role Phone Unavailable Primary Care Provider Unavailabl e Encounter Details Date Type Department Care Team (Late st Contact Info) Description 06/02/2010 Abstract [facility] Mammography [address] [place], [place] [id number] Aurelia Saenz MD Social History Tobacco Use [...]
--- OUTSIDE RECORDS SUMMARY | 2024-03-20 02:32 | XMS_ITS | Encounter Summary ---
Author Organization [facility] Address [address] [place] [address]. [place] [address] [place] [address] Care Team Providers Care Operations Support Coordinator Name Role Phone Unavailable Primary Care Provider Unavailabl e Encounter Details Date Type Department Care Team (Late st Contact Info) Description 01/06/2004 Abstract [facility] [address] [place], [place] [id number] Anayeli Askew MD [address] [place] [address] Social History Tobacco Use Types Packs/Day Years [...]
== END 2024-03-13 03:11 | disposition left against medical advice (07) ==
LOC: ANHED 03:21
PROVIDERS: PCP Nurse Practitioner Family
DX: Z53.21 Procedure and treatment not carried out due to patient leaving prior to being seen by health care provider (principal)
CPT/HCPCS: 99199